=== PATIENT | male | born 1970 | race African-American/Black ===

== ENCOUNTER 2023-11-29 02:49 | Inpatient (IN) | payer OTHER, SELFPAY ==
[2023-11-28 23:13] VITALS: BP 165/92
[2023-11-28 23:23] VITALS: BP 155/92
[2023-11-28 23:24] VITALS: BMI 22.5
[2023-11-29] VITALS (25 sets, daily range): BP systolic 156–194; BP diastolic 86–117; BMI 21.8
--- NOTE | 2023-11-29 00:38 | ED.GENMED ---
History of Present Illness
General
Chief Complaint: Generalized Pain
Source: patient
Time Seen by Provider: 11/29/23 00:18
Travel History
Have you had any contact with someone who has COVID-19?: No
Do you have any symptoms of coronavirus? Fever > 100 degrees, chills, cough, shortness of breath, sore throat, loss of taste or smell, muscle aches, or headache?: No
History of Present Illness
History of Present Illness:
53-year-old male presents to the emergency room from [facility]. Patient is incarcerated and began having what he describes as his typical sickle cell crisis. He does not have pain medication prescribed for him there.
Patient is describing pain in his legs and ankle particularly his right ankle. Also pain in the chest. No shortness of breath. These are typical sites for his sickle cell pain. Patient typically receives care at the [facility]
[place].
Phy Exam
Physical Exam
Physical Exam:
General: Awake, Alert, Oriented X3. No acute distress.
Vitals: unremarkable
Head: Atraumatic
Eyes: Pupils equal, EOMI
Throat: Airway intact, no exudates
Neck: Trachea midline
Lungs: Clear and equal b/l
Heart: Regular rate, no murmurs
Abd: Soft, Nontender, No pulsatile mass
Neuro: Nonfocal
Skin: Warm, dry, no rash
Extremities: pulses equal b/l, no edema
Course
Orders/Labs/Results
Orders:
Orders
11/28/23 23:17
EKG [Electrocardiogram (*1)] Urgent
Reason for Study: Chest Pain
EKG- Treatment ONCE
11/29/23 00:37
0.9% Sodium Chloride 1000 ml [Nss] 1,000 ml IV BOLUS
HYDROmorphone [Dilaudid] 1 mg IV NOW STA
11/29/23 01:15
Complete Blood Count/With Diff Urgent
Comprehensive Metabolic Panel Urgent
Manual Differential Urgent
Reticulocyte Count Urgent
Troponin I Urgent
11/29/23 01:44
Blood Bank Products [* Blood Bank Products] Urgent
Blood Bank Products: *Packed RBC Leuko(PRBC's)
Quantity: 2
Transfuse Today: Yes
Reason: Anemia
11/29/23 01:45
Type+Screen Urgent
11/29/23 02:06
Admit/Transfer Patient As Directed
Co-Sign Provider:
Level of Care: Inpatient admission
Assign to:: Telemetry
Physician / Group: Gerald
Diagnosis: Sickle Cell Crisis
Reason for Telemetry: Chest Pain syndromes
Date to Stop Telemetry: 12/01/23
Time to Stop Telemetry: 11:00
Reason for Hospitalization: Sickle Cell Crisis
Expected length of stay greater than two midnights?: Yes
ELOS- Estimated Length of Stay in days: 3
I certify the patient meets the requirements for IP care: Yes
11/29/23 02:11
Code Status As Directed
Resuscitation Status: Full Code
12/01/23 11:00
DC Protocol for Telemetry ONCE
Abnormal Lab Results
11/29/23 11/29/23
01:15 01:45
WBC 11.4 H 10^3/uL
(4.8-10.8)
RBC 2.75 L 10^6/uL
(4.70-6.10)
Hgb 6.3 L* g/dL
(13.0-18.0)
Hct 18.8 L* %
(39.0-52.0)
MCV 68.4 L fL
(80.0-94.0)
MCH 22.9 L pg
(27.0-31.0)
RDW 20.5 H %
(11.5-14.5)
Abs Immat Gran (auto) 0.3 H 10^3/uL
(0-0.05)
Absolute Lymphs (auto) 3.5 H 10^3/uL
(1.2-3.4)
Absolute Monos (auto) 1.7 H 10^3/uL
(0.1-0.6)
Immature Gran % 2.9 H %
(0-0.5)
Monocytes % 15.1 H %
(1.7-9.3)
Band Neutrophils 4 H %
(0-3)
Retic Count 7.1 H %
(0.4-2.8)
Sodium 133 L mmol/L
(135-145)
Chloride 109 H mmol/L
(98-107)
Total Bilirubin 1.8 H mg/dl
(0.2-1.3)
AST 70 H U/L
(17-59)
Alkaline Phosphatase 199 H U/L
(38-126)
Troponin I 0.045 H* ng/ml
Crossmatch IS Only See Detail
11/29/23 01:15
11/29/23 01:15
Vital Signs
Initial and Last Documented VS:
Initial Vital Signs
Temp Pulse Resp BP Pulse Ox
98.6 F 87 20 165/92 97
11/28/23 23:13 11/28/23 23:13 11/28/23 23:13 11/28/23 23:13 11/28/23 23:13
Last Documented Vital Signs
Temp Pulse Resp BP Pulse Ox
98.6 F 90 17 155/92 98
11/28/23 23:13 11/29/23 03:00 11/29/23 03:00 11/28/23 23:23 11/29/23 03:00
MDM/Problems Addressed
Differential Diagnosis Includes:
Sickle cell pain crisis, aplastic anemia, acute chest syndrome, symptomatic anemia
MDM/Problems Addressed:
Patient presents with pain crisis which he says is typical for him. He is not hypoxic. He does not have a fever. There is not appear to be an infectious process ongoing. Labs show a hemoglobin of 6.3. Patient is unaware of his baseline
hemoglobin however he does state he has had blood transfusions in the past. Most recently he believes his transfusion was in 2019. Patient denies any GI bleeding or other sources of bleeding. Patient will require transfusion given how low his
hemoglobin is and the fact that he does feel short of breath and is having a pain crisis. 2 units of PRBCs ordered. Because patient was having some chest pain a troponin was ordered in triage. This is mildly elevated. My suspicion for coronary
artery disease causing this troponin elevation is very low rather than feel this is more related to his symptomatic anemia.
Chronic conditions affecting care: HTN
Acute Exacerbation and/or Progression of Chronic Illness: Other (Sickle cell disease)
*Pulse Oximetry
Patient hypoxic: no
*EKG
Interpreted by ED Provider?: Yes
Interpretation: abnormal
Heart Rate: 79
Rate: normal
Rhythm: sinus
QRS Pattern: left vent hypertrophy
Ischemia: no ischemia
*Cadmium Burner Interpretation
Rate: normal
Interpretation: normal
Rhythm: sinus
*Critical Care Note
Total Time (30-74mins, 75-104mins- exclusive of procedures): Not Applicable
Patient Management
Social determinants of health affecting care: Living situation and Poor outpatient follow-up
ED Attending Note
-
Portions of this chart may have been created with voice recognition software.� Occasional wrong word or��sound alike� substitutions may have occurred due to the inherent limitations of voice recognition software.
Discharge Plan
Departure
Patient Disposition: Admit
Date of Disposition: 11/29/23
Time of Disposition: 01:48
Admit to: Telemetry
Presentation/result/management discussed w/ accepting MD/DO: Hospitalist
Condition: Fair
Discharge Problem:
Sickle cell disease with crisis, Anemia
Interventions
Interventions:
*Risk Screen - Suicide Last Done: 11/28/23 23:13
*General Assessment Last Done: 11/28/23 23:13
*Neglect/Abuse Screening Last Done: 11/28/23 23:13
ED- Fall Risk Assessment Last Done: 11/28/23 23:25
*ED COVID-19 Vaccine History Last Done: 11/28/23 23:25
[2023-11-29 01:24] LABS: % Basophils 0.6 % (0-2); % Eosinophils 0.9 % (0-6); % Immature Granulocytes 2.9 % (0-0.5); % Lymphocytes 30.5 % (20.5-51.1); % Monocytes 15.1 % (1.7-9.3); Absolute Basophils 0.1 10^3/uL (0-0.2); Absolute Eosinophils 0.1 10^3/uL (0-0.7); Absolute Immature Granulocytes 0.3 10^3/uL (0-0.05); Absolute Lymphocytes 3.5 10^3/uL (1.2-3.4); Absolute Monocytes 1.7 10^3/uL (0.1-0.6); Absolute Neutrophils 5.7 10^3/uL (1.4-6.5); Mean Corp Hgb Conc. 33.5 g/dL (33.0-37.0); Mean Corpuscular Hgb 22.9 pg (27.0-31.0); Mean Corpuscular Volume 68.4 fL (80.0-94.0); Mean Platelet Volume 9.6 fL (7.4-10.4); Nucleated Red Blood Cells % 10.2 % (-); Platelet Count 203 10^3/uL (130-400); Red Blood Cell Count 2.75 10^6/uL (4.70-6.10); Red Cell Dist. Width 20.5 % (11.5-14.5); Reticulocyte Count 7.1 % (0.4-2.8); White Blood Cell Count 11.4 10^3/uL (4.8-10.8)
[2023-11-29 01:27] LABS: Hematocrit 18.8 % (39.0-52.0); Hemoglobin 6.3 g/dL (13.0-18.0)
[2023-11-29] MEDS: DILAUDID 1 MG IV (01:38)
[2023-11-29] MEDS: NSS 1000 IV ×4 (01:38→18:18)
[2023-11-29 01:40] LABS: ALT (SGPT) 23 U/L (0-50); AST (SGOT) 70 U/L (17-59); Albumin 3.5 g/dl (3.5-5.0); Alkaline Phosphatase 199 U/L (38-126); Blood Urea Nitrogen 12 mg/dl (9-20); Calcium 8.5 mg/dl (8.4-10.2); Carbon Dioxide 22 mmol/L (22-30); Chloride 109 mmol/L (98-107); Estimated Creatinine Clearance 103 ml/min; Glucose 98 mg/dl (70-99); Potassium 4.2 mmol/L (3.5-5.1); Sodium 133 mmol/L (135-145); Total Bilirubin 1.8 mg/dl (0.2-1.3); Total Protein 7.8 g/dl (6.3-8.2); eGFR > 60.00
[2023-11-29 01:46] LABS: Troponin I 0.045 ng/ml
[2023-11-29 02:12] LABS: Absolute Neutrophils -Man Diff 5.7 10^3/uL (1.4-6.5); Anisocytosis 2+; Band Neutrophils 4 % (0-3); Eosinophils 2 % (0-6); Lymphocytes 39 % (20-51); Metamyelocytes 1 % (-); Monocytes 8 % (2-9); Normal RBC Morphology No; Nucleated Red Blood Cells 50 (-); Platelets Checked Yes; Poikilocytosis 2+; Segmented Neutrophils 46 % (42-75); Target Cells 2+
[2023-11-29 02:13] LABS: Sickled Red Blood Cells 2+; Total Cells Counted 100
--- NOTE | 2023-11-29 02:14 | HPS.HSE ---
Family Physician
-
Family Physician: [facility]
Chief Complaint
-
Chest pain, R ankle pain
History of Present Illness
Patient is a 53y M with PMH significant for hypertension and sickle cell disease who presents to ED complaining of chest pain and R ankle pain. Patient states that he developed 'squeezing' chest discomfort this evening around 9PM. He had
associated SOB. No nausea, diaphoresis or other associated symptoms. Patient also began to experience pain in his R foot and ankle - which he notes is a typical site for his sickle cell pain. He denies any recent injury or trauma. He is
typically maintained on folic acid daily, but notes that he has not had this in about 2 months.
His last hospitalization due to sickle cell was in July or August 2023. He is typically seen at [facility] where he follows with Hematology.
Patient states that his last transfusion was in 2019.
He denies any recent fever, cough, abdominal pain or other recent symptoms.
Medical History
Past Medical History
Past Medical History: Reports Other
Additional Past Medical History:
Sickle Cell Disease
Hypertension
Past Surgical History: Reports None and Other
Social History
Tobacco: Smoker (Typical every day smoker. No cigarettes in about 2 months.)
Alcohol: None
Drug: Marijuana (Occasional)
Family History
Family History: Other (Father: Sickle cell trait Mother: Sickle cell trait Children: Sickle cell trait)
Allergies / Home Medications
Allergies reflects when Allergies were last updated in [facility].
Home Medications with original date entered in [facility]
Allergy/Medication List:
Patient states that he takes a 'blood pressure pill' - but he does not know the name / dose.
If medication reconciliation has not been performed, why?: Medication List N/A (Patient cannot recall.)
Review of Systems
-
History Source: Patient
A 12 point ROS was completed and negative except as noted: Yes
Constitutional: Denies Fever, Fatigue or Chills
EENT: Denies Sore Throat
Respiratory: Reports Trouble Breathing; Denies Cough or Hemoptysis
Cardiac: Reports Chest Pain; Denies Diaphoresis or Palpitations
Abdomen/GI: Denies Abdominal Pain, Nausea, Vomiting or Diarrhea
: Denies Dysuria, Frequency or Flank Pain
Musculoskeletal: Reports Joint Pain; Denies Edema
Neurological: Denies Dizzy or Headache
Psych: Denies Depression or Anxiety
Physical Exam
Vital Signs
Vital Signs
Temp Pulse Resp BP Pulse Ox
98.6 F 91 16 155/92 98
11/28/23 23:13 11/29/23 01:30 11/29/23 01:30 11/28/23 23:23 11/28/23 23:30
Physical Exam
General: Other (53y M in no acute distress at present.)
HEENT: Moist mucous membranes and PERRLA
Respiratory: Clear; No Wheezes, Rales or Rhonchi
Cardiac: S1/S2 and Regular Rhythm; No Murmur
GI: Soft, Non Distended, Normal Bowel Sounds and Other (Mild splenomegaly on exam. Voluntary guarding. )
Musculoskeletal: No Clubbing, No Cyanosis, No Edema and Other (Tenderness of the R foot / ankle area. No erythema, increased warmth or induration. No evident edema / joint effusion / etc.)
Neuro: AO x 3
Laboratory Results
-
11/29/23 01:15
11/29/23 01:15
Laboratory Results
Total Bilirubin 1.8 mg/dl (0.2-1.3) H 11/29/23 01:15
AST 70 U/L (17-59) H 11/29/23 01:15
ALT 23 U/L (0-50) 11/29/23 01:15
Alkaline Phosphatase 199 U/L (38-126) H 11/29/23 01:15
Troponin I 0.045 ng/ml H* 11/29/23 01:15
Impression/Plan
-
A/P: Patient is a 53y M with PMH significant for sickle cell disease and HTN who presents to ED complaining of chest pain and R ankle pain.
Sickle Cell Disease with Vaso-occlusive Pain
Non-HI Troponin elevation secondary to the above
Microcytic Anemia - likely acute on chronic
- Admit for further evaluation and treatment.
- Pain control, IVFs, incentive spirometry, supplemental oxygen.
- PRBCs ordered in the ED for Hgb = 6.3.
- Follow for improvement in symptoms with transfusion and supportive care.
- Restart folate supplementation.
- Follow troponin to peak.
Benign Hypertension
- Follow for improvement in BP with adequate pain control.
- Formal med reconciliation in the AM. No med list sent with patient from group home.
DVT Prophylaxis: Lovenox
Code Status: Full
[2023-11-29 02:48] LABS: Hypochromasia 1+; Microcytosis 2+; Polychromasia 1+
[2023-11-29 02:49] LABS: Howell Jolly Bodies 1+; Ovalocytes 1+; Schistocytes Occasional; Tear Drop Red Blood Cells Occasional
[2023-11-29 04:33] LABS: Troponin I 0.057 ng/ml
[2023-11-29] MEDS: DILAUDID 0.5 MG IV ×5 (04:43→23:36)
[2023-11-29] MEDS: PROTONIX IV 40 MG IV (08:34)
[2023-11-29] MEDS: FOLVITE 1 MG PO (08:34)
[2023-11-29] MEDS: NSS (PRESERVATIVE FREE) 10 ML IV (08:34)
[2023-11-29] MEDS: TYLENOL 1000 MG PO ×2 (08:35→16:59)
--- NOTE | 2023-11-29 08:50 | W.PN.HOSP.TC ---
Today's Communication/Plan
-
see A/P
Assessment / Plan
Assessment / Plan
53y M with PMH significant for hypertension and sickle cell disease who presented to ED complaining of chest pain and R ankle pain.�Patient states that he developed 'squeezing' chest discomfort in the evening around 9PM.� He had associated SOB.�
No nausea, diaphoresis or other associated symptoms.� Patient also began to experience pain in his R foot and ankle - which he notes is a typical site for his sickle cell pain.� He denies any recent injury or trauma.� He is typically maintained on
folic acid daily, but notes that he has not had this in about 2 months.
His last hospitalization due to sickle cell was in July or August 2023.�He is typically seen at [place] where he follows with Hematology.
Patient states that his last transfusion was in 2019.
He denies any recent fever, cough, abdominal pain or other recent symptoms.
A/P:�
# Sickle Cell Disease with Vaso-occlusive Pain
# Non-CA Troponin elevation secondary to the above
# Microcytic Anemia - likely acute on chronic
Hgb 6.3 on admission, transfuse 2 units PRBC, follow Hgb
retic count high consistent with active sickle cell disease
Check CXR
Follow troponin to peak.
Check d dimer
Chest pain has much improved
Cont pain control, IVFs, incentive spirometry
off supplemental oxygen.
Restart folate supplementation.
# Benign Hypertension
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
IV hydralazine PRN for SBP > 160
DVT Prophylaxis:� Lovenox SQ
Code Status:� Full
DW RN
Anticipated Discharge: 24 - 48 hours
Subjective/Interval History
-
Date of Service: November 29, 2023
Objective Data
-
Labs:
Laboratory Results
11/29/23 11/29/23
01:15 06:00
WBC 11.4 H Pending
Hgb 6.3 L* Pending
Hct 18.8 L* Pending
Plt Count 203 Pending
PT Pending
INR Pending
Sodium 133 L Pending
Potassium 4.2 Pending
Chloride 109 H Pending
Carbon Dioxide 22 Pending
BUN 12 Pending
Creatinine 0.8 Pending
Glucose 98 Pending
Calcium 8.5 Pending
Total Bilirubin 1.8 H
AST 70 H
ALT 23
Alkaline Phosphatase 199 H
Vital Signs:
Vital Signs
Temp Pulse Resp BP Pulse Ox
36.6 C 83 18 170/86 97
11/29/23 07:00 11/29/23 06:34 11/29/23 06:34 11/29/23 06:34 11/29/23 06:34
I&O
11/28/23 11/29/23 11/30/23
06:59 06:59 06:59
Intake Total 250 / 250
Output Total 450 / 450
Balance -200 / -200
Review of Systems
-
Musculoskeletal: Reports Joint Pain (R ankle joint pain)
Physical Exam
-
General: Well Developed, Well Nourished, No Apparent Distress, Comfortable and Conversant; Negative Respiratory Distress
HEENT: Normocephalic, Atraumatic, Nose Appears Normal and Ears Appear Normal; Negative Oxygen
Respiratory: Clear to Auscultation and Non Labored Respirations; Negative Accessory Resp Muscle Use
Cardiac: Regular Rhythm and S1/S2
GI: Soft, Nontender, Nondistended and Normal Bowel Sounds
Skin: Warm and Dry
Neuro: Awake, Alert and Oriented
Psych: Calm and Intact Judgement/Insight
Data Reviewed
-
Labs: Labs Reviewed by me
[2023-11-29] MEDS: COZAAR 25 MG PO (09:04)
[2023-11-29] MEDS: APRESOLINE 5 MG IV (12:58)
--- NOTE | 2023-11-29 14:19 | CM ---
Patient here with guards from [facility]. CM called to [facility] and was told by Socrates and a diving supervisor that they were not privy to patient status. CM will update [facility] as per care needs. CM will continue to follow for discharge planning needs.
Plan; return to [facility] when medically appropriate.
[2023-11-29 14:45] LABS: Hematocrit 21.2 % (39.0-52.0); Hemoglobin 7.1 g/dL (13.0-18.0); Mean Corp Hgb Conc. 33.5 g/dL (33.0-37.0); Mean Corpuscular Hgb 24.4 pg (27.0-31.0); Mean Corpuscular Volume 72.9 fL (80.0-94.0); Red Blood Cell Count 2.91 10^6/uL (4.70-6.10); Red Cell Dist. Width 21.2 % (11.5-14.5); White Blood Cell Count 9.3 10^3/uL (4.8-10.8)
[2023-11-29 14:52] LABS: INR 1.29; PT 16.1 Sec (11.4-14.6)
[2023-11-29 15:02] LABS: Blood Urea Nitrogen 9 mg/dl (9-20); Calcium 7.7 mg/dl (8.4-10.2); Carbon Dioxide 20 mmol/L (22-30); Chloride 112 mmol/L (98-107); D-Dimer 4.38 ug/mlFEU (0.00-0.50); Estimated Creatinine Clearance 117 ml/min; Glucose 93 mg/dl (70-99); Magnesium 1.5 mg/dl (1.6-2.3); Potassium 3.7 mmol/L (3.5-5.1); Sodium 139 mmol/L (135-145); eGFR > 60.00
[2023-11-29 15:03] LABS: Mean Platelet Volume 9.3 fL (7.4-10.4); Platelet Count 161 10^3/uL (130-400)
[2023-11-29 15:10] LABS: Troponin I 0.037 ng/ml
[2023-11-29 15:11] LABS: Troponin I 0.038 ng/ml
[2023-11-29] MEDS: TYLENOL PO ×2 (16:54→23:24)
[2023-11-29] MEDS: APRESOLINE 10 MG IV ×2 (16:59→23:37)
[2023-11-29] MEDS: LOVENOX SC ×2 (18:18→18:25)
[2023-11-30] VITALS (13 sets, daily range): BP systolic 143–182; BP diastolic 81–112; BMI 21.5
[2023-11-30] MEDS: DILAUDID 0.5 MG IV ×3 (02:43→08:46)
[2023-11-30] MEDS: NSS 1000 IV ×3 (02:44→19:06)
[2023-11-30 08:37] LABS: Hematocrit 23.6 % (39.0-52.0); Hemoglobin 7.9 g/dL (13.0-18.0); Mean Corp Hgb Conc. 33.5 g/dL (33.0-37.0); Mean Corpuscular Hgb 24.2 pg (27.0-31.0); Mean Corpuscular Volume 72.4 fL (80.0-94.0); Mean Platelet Volume 9.8 fL (7.4-10.4); Platelet Count 171 10^3/uL (130-400); Red Blood Cell Count 3.26 10^6/uL (4.70-6.10); Red Cell Dist. Width 21.2 % (11.5-14.5)
[2023-11-30] MEDS: COZAAR 25 MG PO ×2 (08:46→19:29)
[2023-11-30] MEDS: TYLENOL PO ×2 (08:46→11:45)
[2023-11-30] MEDS: NSS (PRESERVATIVE FREE) 10 ML IV (08:46)
[2023-11-30] MEDS: FOLVITE 1 MG PO (08:46)
[2023-11-30] MEDS: PROTONIX IV 40 MG IV (08:46)
--- NOTE | 2023-11-30 09:21 | CM ---
Patient from [facility]
Plan: [facility] when stable.
Report# [phone]
[2023-11-30 09:32] LABS: Blood Urea Nitrogen 12 mg/dl (9-20); Calcium 8.6 mg/dl (8.4-10.2); Carbon Dioxide 24 mmol/L (22-30); Chloride 106 mmol/L (98-107); Estimated Creatinine Clearance 112 ml/min; Glucose 81 mg/dl (70-99); Magnesium 1.7 mg/dl (1.6-2.3); Potassium 4.4 mmol/L (3.5-5.1); Sodium 135 mmol/L (135-145); eGFR > 60.00
[2023-11-30] MEDS: APRESOLINE 10 MG IV ×3 (11:46→23:55)
[2023-11-30] MEDS: DILAUDID 1 MG IV ×4 (11:49→23:34)
--- NOTE | 2023-11-30 12:08 | W.PN.HOSP.TC ---
Today's Communication/Plan
-
navarro culture
adjust pain meds
renew IVF
transfuse 2 more pRBC
Assessment / Plan
Assessment / Plan
53y M with PMH significant for hypertension and sickle cell disease who presented to ED complaining of chest pain and R ankle pain.�Patient states that he developed 'squeezing' chest discomfort in the evening around 9PM.� He had associated SOB.�
No nausea, diaphoresis or other associated symptoms.� Patient also began to experience pain in his R foot and ankle - which he notes is a typical site for his sickle cell pain.� He denies any recent injury or trauma.� He is typically maintained on
folic acid daily, but notes that he has not had this in about 2 months.
His last hospitalization due to sickle cell was in July or August 2023.�He is typically seen at [place] where he follows with Hematology.
Patient states that his last transfusion was in 2019.
He denies any recent fever, cough, abdominal pain or other recent symptoms.
Sickle Cell Disease with crisis and Vaso-occlusive Pain/acute nonischemic myocardial injury due to crisis --HGB 6.3 on admission, increased to 7.9, will give 2 more units--cont pain management--troponin peak at 0.057--retic count high consistent
with active sickle cell disease --cont folic acid
fever--due to crisis?--would navarro culture--CXR without infection--tylenol for fever
Microcytic Anemia - likely acute on chronic--Hgb 6.3 on admission, transfuse 2 units PRBC, will give 2 more
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
DVT Prophylaxis:� Lovenox SQ
Code Status:� Full
Anticipated Discharge: > 48 hours
Subjective/Interval History
-
Date of Service: November 30, 2023
pt c/o leg pains--no chest pain
Objective Data
-
Labs:
Laboratory Results
11/30/23
08:17
WBC 10.0
Hgb 7.9 L
Hct 23.6 L
Plt Count 171
Sodium 135
Potassium 4.4
Chloride 106
Carbon Dioxide 24
BUN 12
Creatinine 0.7
Glucose 81
Calcium 8.6
Vital Signs:
max temp for 24 hours
11/30/23
03:30
Temp 98.8 F
Vital Signs
Temp Pulse Resp BP Pulse Ox
100.6 F H 98 18 182/106 100
11/30/23 11:29 11/30/23 11:46 11/30/23 11:29 11/30/23 11:46 11/30/23 11:29
I&O
11/29/23 11/30/23 12/01/23
06:59 06:59 06:59
Intake Total 250 / 250 1210 / 1210
Output Total 450 / 450 400 / 400
Balance -200 / -200 810 / 810
Review of Systems
-
All other systems: Reviewed and negative
Physical Exam
-
General: Well Developed, Well Nourished and No Apparent Distress
HEENT: Normocephalic and Atraumatic
Respiratory: Clear to Auscultation; Negative Wheezes or Rhonchi
Cardiac: Regular Rhythm and S1/S2; Negative Murmur
GI: Soft, Nontender, Nondistended and Normal Bowel Sounds
Musculoskeletal: No Clubbing, No Cyanosis, No Edema and Other (leg pain to touch)
Skin: Warm (feels hot)
Neuro: Awake
Psych: Calm
[2023-11-30] MEDS: TYLENOL 650 MG PO (14:08)
[2023-11-30] MEDS: LOVENOX 40 MG SC (18:39)
[2023-11-30 18:46] LABS: Urine Albumin 1+ (Neg - Trace); Urine Bilirubin Negative (Negative); Urine Character Clear (Clear); Urine Color Yellow; Urine Glucose Negative (Negative); Urine Ketone Negative (Negative); Urine Leukocyte Negative (Negative); Urine Nitrite Negative (Negative); Urine Occult Blood 1+ (Negative); Urine Urobilinogen Negative (Neg - 1+)
[2023-11-30 18:52] LABS: Urine Red Blood Cell 0-2 /HPF (0-2); Urine Squamous Cell 0-2 /LPF (Few); Urine White Cell 0-2 /HPF (0-5)
[2023-11-30 18:53] LABS: Urine Bacteria Few (Negative)
[2023-11-30] MEDS: COLACE 100 MG PO (19:29)
[2023-12-01] VITALS (9 sets, daily range): BP systolic 166–191; BP diastolic 93–112; BMI 21.8
[2023-12-01] MEDS: DILAUDID 1 MG IV ×7 (02:34→22:34)
[2023-12-01] MEDS: APRESOLINE 10 MG IV ×3 (04:23→21:26)
[2023-12-01] MEDS: NSS 1000 IV ×2 (05:37→13:40)
[2023-12-01] MEDS: PROTONIX IV 40 MG IV (07:46)
[2023-12-01] MEDS: NSS (PRESERVATIVE FREE) 10 ML IV (07:46)
[2023-12-01] MEDS: COZAAR 25 MG PO ×2 (07:46→19:33)
[2023-12-01] MEDS: FOLVITE 1 MG PO (07:46)
[2023-12-01] MEDS: MIRALAX 17 GRAMS PO (07:50)
[2023-12-01] MEDS: COLACE 100 MG PO ×2 (07:50→19:34)
[2023-12-01 08:14] LABS: % Basophils 0.4 % (0-2); % Eosinophils 0.7 % (0-6); % Immature Granulocytes 0.8 % (0-0.5); % Lymphocytes 22.3 % (20.5-51.1); % Monocytes 12.6 % (1.7-9.3); % Neutrophils 63.2 % (42.2-75.2); Absolute Eosinophils 0.1 10^3/uL (0-0.7); Absolute Immature Granulocytes 0.1 10^3/uL (0-0.05); Absolute Monocytes 1.2 10^3/uL (0.1-0.6); Absolute Neutrophils 5.8 10^3/uL (1.4-6.5); Hematocrit 29.9 % (39.0-52.0); Mean Corp Hgb Conc. 33.8 g/dL (33.0-37.0); Mean Corpuscular Hgb 25.3 pg (27.0-31.0); Mean Corpuscular Volume 74.9 fL (80.0-94.0); Mean Platelet Volume 9.8 fL (7.4-10.4); Nucleated Red Blood Cells % 6.6 % (-); Platelet Count 169 10^3/uL (130-400); Red Blood Cell Count 3.99 10^6/uL (4.70-6.10); Red Cell Dist. Width 20.6 % (11.5-14.5); White Blood Cell Count 9.1 10^3/uL (4.8-10.8)
[2023-12-01 08:35] LABS: ALT (SGPT) 20 U/L (0-50); AST (SGOT) 56 U/L (17-59); Albumin 3.5 g/dl (3.5-5.0); Alkaline Phosphatase 198 U/L (38-126); Blood Urea Nitrogen 13 mg/dl (9-20); Calcium 8.6 mg/dl (8.4-10.2); Carbon Dioxide 21 mmol/L (22-30); Chloride 109 mmol/L (98-107); Estimated Creatinine Clearance 99 ml/min; Glucose 91 mg/dl (70-99); Hemoglobin 10.1 g/dL (13.0-18.0); Magnesium 1.7 mg/dl (1.6-2.3); Potassium 4.2 mmol/L (3.5-5.1); Total Bilirubin 2.6 mg/dl (0.2-1.3); Total Protein 7.8 g/dl (6.3-8.2); Uric Acid 6.5 mg/dl (3.5-8.5); eGFR > 60.00
[2023-12-01 08:42] LABS: Sodium 135 mmol/L (135-145)
--- NOTE | 2023-12-01 12:07 | W.PN.HOSP.TC ---
Today's Communication/Plan
-
see A/P
Assessment / Plan
Assessment / Plan
53y M with PMH significant for hypertension and sickle cell disease who presented to ED complaining of chest pain and R ankle pain.�Patient states that he developed 'squeezing' chest discomfort in the evening around 9PM.� He had associated SOB.�
No nausea, diaphoresis or other associated symptoms.� Patient also began to experience pain in his R foot and ankle - which he notes is a typical site for his sickle cell pain.� He denies any recent injury or trauma.� He is typically maintained on
folic acid daily, but notes that he has not had this in about 2 months.
His last hospitalization due to sickle cell was in July or August 2023.�He is typically seen at [place] where he follows with Hematology.
Patient states that his last transfusion was in 2019.
He denies any recent fever, cough, abdominal pain or other recent symptoms.
Sickle Cell Disease with crisis and Vaso-occlusive Pain/acute nonischemic myocardial injury due to crisis -- HGB 6.3 on admission, transfused 4 units PBRC, Hgb improved to 10.1 today--cont pain management--troponin peak at 0.057--retic count on
admission high consistent with active sickle cell disease, follow retic level--cont folic acid
fever--due to crisis?--follow blood culture, CXR with Cardiomegaly without associated pulmonary edema--tylenol for fever
Microcytic Anemia - likely acute on chronic
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
DVT Prophylaxis:� Lovenox SQ
Code Status:� Full
DW RN
Anticipated Discharge: Within 24 hours
Subjective/Interval History
-
Date of Service: December 01, 2023
Objective Data
-
Labs:
Laboratory Results
12/01/23
07:44
WBC 9.1
Hgb 10.1 L D
Hct 29.9 L
Plt Count 169
Sodium 135
Potassium 4.2
Chloride 109 H
Carbon Dioxide 21 L
BUN 13
Creatinine 0.8
Glucose 91
Calcium 8.6
Total Bilirubin 2.6 H
AST 56
ALT 20
Alkaline Phosphatase 198 H
Vital Signs:
Vital Signs
Temp Pulse Resp BP Pulse Ox
37.1 C 103 16 175/94 91
12/01/23 11:20 12/01/23 11:20 12/01/23 11:20 12/01/23 11:20 12/01/23 11:20
I&O
11/30/23 12/01/23 12/02/23
06:59 06:59 06:59
Intake Total 1210 / 1210 2215 / 2215
Output Total 400 / 400 950 / 950
Balance 810 / 810 1265 / 1265
Review of Systems
-
All other systems: Reviewed and negative
Physical Exam
-
General: Well Developed, Well Nourished, No Apparent Distress and Comfortable
HEENT: Normocephalic and Atraumatic
Respiratory: Clear to Auscultation and Non Labored Respirations; Negative Wheezes, Rhonchi or Accessory Resp Muscle Use
Cardiac: Regular Rhythm and S1/S2; Negative Murmur
GI: Soft, Nontender, Nondistended and Normal Bowel Sounds
Musculoskeletal: No Clubbing, No Cyanosis and No Edema
Neuro: Awake
Psych: Calm and Intact Judgement/Insight
Data Reviewed
-
Labs: Labs Reviewed by me
--- NOTE | 2023-12-01 15:34 | CM ---
Patient from [facility]. CM will call to [facility] with update.
Plan: [facility] when stable.
Report# [phone]
[2023-12-01] MEDS: LOVENOX 40 MG SC (17:35)
[2023-12-02] MEDS: APRESOLINE 10 MG IV ×2 (01:34→05:35)
[2023-12-02] MEDS: DILAUDID 1 MG IV ×4 (01:35→10:45)
[2023-12-02 03:30] VITALS: BP 166/109
[2023-12-02 06:00] VITALS: BMI 21.4
[2023-12-02 06:41] LABS: Hematocrit 30.4 % (39.0-52.0); Hemoglobin 10.5 g/dL (13.0-18.0); Mean Corp Hgb Conc. 34.5 g/dL (33.0-37.0); Mean Corpuscular Hgb 25.5 pg (27.0-31.0); Mean Corpuscular Volume 73.8 fL (80.0-94.0); Mean Platelet Volume 9.5 fL (7.4-10.4); Platelet Count 163 10^3/uL (130-400); Red Blood Cell Count 4.12 10^6/uL (4.70-6.10); Red Cell Dist. Width 20.9 % (11.5-14.5); Reticulocyte Count 5.1 % (0.4-2.8); White Blood Cell Count 8.5 10^3/uL (4.8-10.8)
[2023-12-02 07:05] LABS: Blood Urea Nitrogen 14 mg/dl (9-20); Carbon Dioxide 23 mmol/L (22-30); Chloride 105 mmol/L (98-107); Estimated Creatinine Clearance 112 ml/min; Glucose 121 mg/dl (70-99); Magnesium 1.7 mg/dl (1.6-2.3); Potassium 4.3 mmol/L (3.5-5.1); Sodium 136 mmol/L (135-145); eGFR > 60.00
[2023-12-02 08:17] VITALS: BP 174/98
[2023-12-02] MEDS: FOLVITE 1 MG PO (09:18)
[2023-12-02] MEDS: MIRALAX 17 GRAMS PO (09:19)
[2023-12-02] MEDS: COZAAR 25 MG PO ×2 (09:19→20:32)
[2023-12-02] MEDS: COLACE 100 MG PO ×2 (09:20→20:32)
[2023-12-02] MEDS: PROTONIX IV 40 MG IV (09:20)
[2023-12-02] MEDS: NSS (PRESERVATIVE FREE) 10 ML IV (09:20)
[2023-12-02 10:53] VITALS: BP 150/90
--- NOTE | 2023-12-02 13:03 | W.PN.HOSP.TC ---
Today's Communication/Plan
-
anticipate d/c after US today
Assessment / Plan
Assessment / Plan
pt is a 53 year old male
Sickle Cell Disease with crisis and Vaso-occlusive Pain/acute nonischemic myocardial injury due to crisis -- HGB 6.3 on admission, transfused 4 units PBRC, Hgb improved to 10.5 today--cont pain management--troponin peak at 0.057--retic count on
admission high consistent with active sickle cell disease, follow retic level--cont folic acid--check US of legs (given ongoing pain)
fever--due to crisis?--follow blood culture, CXR with Cardiomegaly without associated pulmonary edema--tylenol for fever
Microcytic Anemia - likely acute on chronic
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
DVT Prophylaxis:� Lovenox SQ
Code Status:� Full
Anticipated Discharge: Today
Subjective/Interval History
-
Date of Service: December 02, 2023
pt continues to c/o leg pain
Objective Data
-
Labs:
Laboratory Results
12/02/23
06:20
WBC 8.5
Hgb 10.5 L
Hct 30.4 L
Plt Count 163
Sodium 136
Potassium 4.3
Chloride 105
Carbon Dioxide 23
BUN 14
Creatinine 0.7
Glucose 121 H
Calcium 9.0
Vital Signs:
max temp for 24 hours
12/01/23
23:35
Temp 98.9 F
Vital Signs
Temp Pulse Resp BP Pulse Ox
98.3 F 90 20 150/90 96
12/02/23 11:50 12/02/23 11:50 12/02/23 11:50 12/02/23 10:53 03/16/24 11:50
I&O
12/01/23 12/02/23 12/03/23
06:59 06:59 06:59
Intake Total 2215 / 2215 2940 / 2940
Output Total 950 / 950 2790 / 2790
Balance 1265 / 1265 150 / 150
Review of Systems
-
All other systems: Reviewed and negative
Musculoskeletal: Reports Other (leg pain)
Physical Exam
-
General: Well Developed, Well Nourished and No Apparent Distress
HEENT: Normocephalic and Atraumatic
Respiratory: Clear to Auscultation; Negative Wheezes or Rhonchi
Cardiac: Regular Rhythm and S1/S2; Negative Murmur
GI: Soft, Nontender, Nondistended and Normal Bowel Sounds
Musculoskeletal: No Clubbing, No Cyanosis and No Edema
Neuro: Awake
Psych: Calm
[2023-12-02 15:00] VITALS: BP 171/107
[2023-12-02] MEDS: MOTRIN 600 MG PO ×2 (16:12→20:32)
[2023-12-02 19:35] VITALS: BP 170/97
[2023-12-02] MEDS: LOVENOX 40 MG SC (20:31)
[2023-12-02 23:35] VITALS: BP 159/94
[2023-12-03] MEDS: MOTRIN 600 MG PO ×3 (03:40→14:30)
[2023-12-03 06:00] VITALS: BMI 20.9
[2023-12-03 07:14] LABS: Hematocrit 29.8 % (39.0-52.0); Mean Corp Hgb Conc. 33.6 g/dL (33.0-37.0); Mean Corpuscular Hgb 25.3 pg (27.0-31.0); Mean Corpuscular Volume 75.3 fL (80.0-94.0); Platelet Count 144 10^3/uL (130-400); Red Blood Cell Count 3.96 10^6/uL (4.70-6.10); Red Cell Dist. Width 21.4 % (11.5-14.5); White Blood Cell Count 6.4 10^3/uL (4.8-10.8)
[2023-12-03 07:30] LABS: Blood Urea Nitrogen 19 mg/dl (9-20); Calcium 8.5 mg/dl (8.4-10.2); Carbon Dioxide 24 mmol/L (22-30); Chloride 112 mmol/L (98-107); Estimated Creatinine Clearance 95 ml/min; Glucose 77 mg/dl (70-99); Sodium 139 mmol/L (135-145); eGFR > 60.00
[2023-12-03 07:38] VITALS: BP 170/105
[2023-12-03] MEDS: MIRALAX PO ×2 (09:37→10:02)
[2023-12-03] MEDS: PROTONIX IV 40 MG IV (09:37)
[2023-12-03] MEDS: FOLVITE 1 MG PO (09:38)
[2023-12-03] MEDS: COLACE 100 MG PO (09:38)
[2023-12-03] MEDS: NSS (PRESERVATIVE FREE) 10 ML IV (09:38)
[2023-12-03] MEDS: COZAAR 25 MG PO (09:38)
--- NOTE | 2023-12-03 13:06 | W.PN.HOSP.TC ---
Today's Communication/Plan
-
d/c
Assessment / Plan
Assessment / Plan
pt is a 53 year old male
Sickle Cell Disease with crisis and Vaso-occlusive Pain/acute nonischemic myocardial injury due to crisis -- HGB 6.3 on admission, transfused 4 units PBRC, Hgb improved to 10.5 today--cont pain management--troponin peak at 0.057--retic count on
admission high consistent with active sickle cell disease, follow retic level--cont folic acid-- US of legs negative
fever--due to crisis?--follow blood culture, CXR with Cardiomegaly without associated pulmonary edema--tylenol for fever
Microcytic Anemia - likely acute on chronic
Essential Hypertension--Cont LUMP ROOM SUPERVISOR Cozaar, increased to BID--IV hydralazine PRN for SBP > 160
DVT Prophylaxis:� Lovenox SQ
Code Status:� Full
Anticipated Discharge: Today
Subjective/Interval History
-
Date of Service: December 03, 2023
pt ready for d/c back to the group home
Objective Data
-
Labs:
Laboratory Results
12/03/23
06:18
WBC 6.4
Hgb 10.0 L
Hct 29.8 L
Plt Count 144
Sodium 139
Potassium 4.0
Chloride 112 H
Carbon Dioxide 24
BUN 19
Creatinine 0.8
Glucose 77
Calcium 8.5
Vital Signs:
max temp for 24 hours
12/02/23
15:00
Temp 98.6 F
Vital Signs
Temp Pulse Resp BP Pulse Ox
98.1 F 92 20 170/105 96
12/03/23 07:38 12/03/23 07:38 12/03/23 07:38 12/03/23 07:38 12/03/23 07:38
I&O
12/02/23 12/03/23 12/04/23
06:59 06:59 06:59
Intake Total 2940 / 2940 1140 / 1140
Output Total 2790 / 2790 1650 / 1650
Balance 150 / 150 -510 / -510
Review of Systems
-
All other systems: Reviewed and negative
Physical Exam
-
General: Well Developed, Well Nourished and No Apparent Distress
HEENT: Normocephalic and Atraumatic
Respiratory: Clear to Auscultation; Negative Wheezes or Rhonchi
Cardiac: Regular Rhythm and S1/S2; Negative Murmur
GI: Soft, Nontender, Nondistended and Normal Bowel Sounds
Musculoskeletal: No Clubbing, No Cyanosis and No Edema
Skin: Warm
Neuro: Awake
--- NOTE | 2023-12-03 13:25 | CM ---
Reviewed the chart notes. Patient is being discharged back to [facility] today.
Report# [phone]
--- NOTE | 2023-12-03 13:42 | W.DCSUMMARY ---
Discharge Summary
Discharge Data
Date of Admission: 11/29/23
Date of Discharge: 12/03/23
-
Pending Results: No
Hospital Course
Primary care physician : [facility]
Principal Discharge diagnosis : Sickle cell crisis with vaso-occlusive pain and acute nonischemic myocardial injury due to crisis
Chronic Discharge diagnosis : Chronic microcytic anemia, essential hypertension
Hospital Course : Patient was a 53-year-old male who presented from the half-way with complaints of chest pain and right ankle pain. Patient stated that he developed a 'squeezing' in his chest on the evening of admission. He also had associated
shortness of breath. He then began to experience pain in his right foot and ankle. This is a typical site for pain from his sickle cell. His last hospitalization for sickle cell flare was in 2022. He does follow with hematology at [facility]
[place]. He also stated that his last transfusion was in 2018. Patient was admitted.
Problem #1: Sickle cell crisis with vaso-occlusive pain and acute nonischemic myocardial injury due to crisis. Patient was admitted. His hemoglobin was 6.3 on admission and in total the patient received 4 units of packed red blood cells.
Hemoglobin improved to 10.5. Troponins were trended and they peaked at 0.057. Reticulocyte count on admission was also elevated all consistent with active sickle cell disease. He was given IV fluids, pain medications as well. Ultrasound of the
leg was checked and was negative for DVT; but again, the patient states that this is a typical location for his sickle pain. He did not require any oxygen during his hospitalization. Patient is stable for discharge.
Problem for 2: All other medical issues. These include chronic microcytic anemia and essential hypertension. These medical issues were stable during his hospitalization. Medications were continued as able. In regards to his essential
hypertension, blood pressure was elevated likely due to pain. His losartan was increased to 25 mg twice daily. He was also given as needed IV hydralazine during his hospitalization.
Patient is stable for discharge back to the half-way at this time. If there are any questions regarding this dictation or his hospital stay, please not hesitate to call. Our office number is [phone].
Discharge Plan
-
Patient Disposition: [facility]
Discharge Diagnosis/Procedures: Sickle cell crisis with acute anemia and vaso-occlusive pain along with acute nonischemic myocardial injury, essential hypertension
Condition: Good
Diet: As tolerated
Activity: As tolerated
Driving Restrictions: As prior to admission
Bathing Restrictions: None
Referrals:
[facility] [Family Provider] - in less than 1 week
Prescriptions:
New
acetaminophen 325 mg Tablet
650 mg PO Q4HPRN PRN (Reason: pain/temp) Qty: 0 0RF
polyethylene glycol 3350 [HealthyLax] 17 gram Powder In Packet
17 g PO DAILY Qty: 0 0RF
docusate sodium 100 mg Capsule
100 mg PO BID Qty: 0 0RF
folic acid 1 mg Tablet
1 mg PO DAILY Qty: 0 0RF
ibuprofen 600 mg Tablet
600 mg PO Q4HPRN PRN (Reason: leg pain) Qty: 20 0RF
losartan 25 mg tablet
25 mg PO BID Qty: 30 0RF
Discontinued
losartan [Cozaar] 25 mg Tablet
25 mg PO DAILY@1999
Patient Comments:
11/29/2023, per [facility], pt.'s one month supply of this med. yesterday (11/28/2023) but will be renewed.
Discharge Orders:
Discharge Patient (As Directed); Ordered 12/03/23
Ordered By: Jannie Hopknis
[2023-12-03] MEDS: FLUZONE QUAD 2023-2024 SYRINGE 0.5 ML IM (14:13)
[2023-12-03 15:35] VITALS: BP 157/96
== END 2023-12-03 17:35 | DRG 812 ==
LOC: 4 WEST ACU 02:49
PROVIDERS: Internal Medicine; ADMITTING PHYSICIAN Hospitalist; ATTENDING PHYSICIAN Internal Medicine; EMERGENCY PHYSICIAN Emergency Medicine
PROC: 30233N1 Transfusion of Nonautologous Red Blood Cells into Peripheral Vein, Percutaneous Approach (ICD-10-PCS; 2023-11-29)
PROC: 3E02340 Introduction of Influenza Vaccine into Muscle, Percutaneous Approach (ICD-10-PCS; 2023-12-03)
DX: D57.00 Hb-SS disease with crisis, unspecified (principal); I5A Non-ischemic myocardial injury (non-traumatic); I10 Essential (primary) hypertension; M79.671 Pain in right foot; F17.200 Nicotine dependence, unspecified, uncomplicated; D50.9 Iron deficiency anemia, unspecified; Z83.2 Family history of diseases of the blood and blood-forming organs and certain disorders involving the immune mechanism; Z23 Encounter for immunization
CPT/HCPCS: 71046; 80048; 80053; 81003; 81015; 83735; 84484; 84550; 85025; 85027; 85045; 85379; 85610; 86140; 86850; 86900; 86901; 86920; 87040; 87070; 90686; 93005; 93970; 96374; 99285; 99406; G0008; P9016; P9058

== ENCOUNTER 2024-01-19 14:48 | Emergency (ER) | payer OTHER, SELFPAY ==
[2024-01-19] VITALS (10 sets, daily range): BP systolic 152–172; BP diastolic 94–112; BMI 24.2
[2024-01-19 15:20] LABS: % Eosinophils 2.4 % (0-6); % Immature Granulocytes 0.5 % (0-0.5); % Lymphocytes 39.7 % (20.5-51.1); % Monocytes 12.4 % (1.7-9.3); Absolute Basophils 0.1 10^3/uL (0-0.2); Absolute Eosinophils 0.2 10^3/uL (0-0.7); Absolute Immature Granulocytes 0.1 10^3/uL (0-0.05); Absolute Lymphocytes 3.9 10^3/uL (1.2-3.4); Absolute Monocytes 1.2 10^3/uL (0.1-0.6); Absolute Neutrophils 4.3 10^3/uL (1.4-6.5); Mean Corp Hgb Conc. 33.2 g/dL (33.0-37.0); Mean Corpuscular Hgb 24.4 pg (27.0-31.0); Mean Corpuscular Volume 73.7 fL (80.0-94.0); Nucleated Red Blood Cells % 5.3 % (-); Red Blood Cell Count 2.62 10^6/uL (4.70-6.10); Red Cell Dist. Width 20.6 % (11.5-14.5); White Blood Cell Count 9.8 10^3/uL (4.8-10.8)
[2024-01-19 15:23] LABS: Hematocrit 19.3 % (39.0-52.0); Hemoglobin 6.4 g/dL (13.0-18.0)
--- NOTE | 2024-01-19 15:27 | ED.GENMED ---
History of Present Illness
General
Chief Complaint: Abnormal Lab Value
Time Seen by Provider: 01/19/24 15:27
Travel History
Have you had any contact with someone who has COVID-19?: No
Do you have any symptoms of coronavirus? Fever > 100 degrees, chills, cough, shortness of breath, sore throat, loss of taste or smell, muscle aches, or headache?: No
History of Present Illness
History of Present Illness:
HPI: The patient presents from [facility] due to a low hemoglobin that was apparently 6.6 drawn on 01/18/2024. He has no new symptoms. He states he has a history of sickle cell disease (not trait). He tells me that he thinks his
baseline hemoglobin is around 7-8. He denies any rectal bleeding and declines rectal examination.
EXAM:
GENERAL: Well appearing in no distress, appears comfortable
HEENT: Moist oral mucosa
CARDIOVASCULAR: No murmurs, normal heart rate, regular rhythm, No chest wall tenderness
PULMONARY: No respiratory distress, breath sounds are clear and equal
ABDOMEN: Soft with no peritoneal signs, no tenderness, patient declined rectal examination
NEUROLOGIC: Excellent strength all extremities, no coordination deficits
PSYCHIATRIC: Appropriate mental status, normal insight and judgement
EXTREMITIES: Nontender, no edema, moves all extremities equally
SKIN: Appears slightly pale
TIME OF INITIAL ENCOUNTER: 3:35 PM
NUMBER AND COMPLEXITY OF PROBLEMS ADDRESSED AT THE ENCOUNTER
� Chronic conditions affecting care: High blood pressure, sickle cell disease
� Acute Exacerbation and/or Progression of Chronic Illness: Chronic anemia, sickle cell disease
� Differential Diagnosis includes: Anemia related to chronic disease/sickle cell disease, GI blood loss but patient declines rectal examination and states he has had no GI bleeding concerns
AMOUNT AND/OR COMPLEXITY OF DATA TO BE REVIEWED AND ANALYZED
� I performed an independent evaluation of and my interpretation is:
EKG:
CT:
X-rays:
Laboratory Studies: Hemoglobin 6.4, reticulocyte count is 6.7%
Other:
� Review of other/old records: I reviewed records, the hemoglobin at discharge 6 weeks ago was 10.0 and at that time came in with a hemoglobin of 6.3; records indicate that he was also managed for sickle cell pain last admission
� Clinical information was obtained by an independent historian: I spoke to corrections officers at bedside
� Prescriptions/Medications Considered but not given:
� Further testing considered but not performed:
RISK OF COMPLICATIONS AND/OR MORBIDITY OR MORTALITY OF PATIENT MANAGEMENT
� Social determinants of health affecting care: Currently staying at [facility]
� Discussion with other providers:
� Escalation of care including admission/observation vs risk of discharge considered: The patient's hemoglobin is lower than it was last admission, he states he received 4 units of blood. I do not think that he needs 4 units of
blood but will plan to give 2 units of blood now to get him a little higher than the 6.4 that is currently. He states his baseline is around 7-8. He denies GI blood loss. He is well-appearing. He prefers outpatient management and does not want
to stay in the. I feel this is reasonable and will order 2 units of blood. 10 PM reassessment, the patient just had blood started now due to delays and needed to come from the [facility].
Phy Exam
Physical Exam
Physical Exam:
See HPI
Course
Orders/Labs/Results
Orders:
Orders
01/19/24 15:11
CMP [Comprehensive Metabolic Panel] Urgent
Complete Blood Count/With Diff Urgent
Reticulocyte Count Urgent
Comment: RETIC ADDED ON BY FLOOR 3:30PM 01-19-24
01/19/24 15:29
Add On- LAB Urgent
Tests Added?: retic count
0.9% Sodium Chloride 1000 ml [Nss] 1,000 ml IV BOLUS
01/19/24 15:31
* Blood Bank Products Urgent
Blood Bank Products: *Packed RBC Leuko(PRBC's)
Quantity: 2
Transfuse Today: Yes
Reason: Anemia
01/19/24 16:05
Type+Screen Urgent
Abnormal Lab Results
01/19/24 01/19/24
15:11 16:05
RBC 2.62 L 10^6/uL
(4.70-6.10)
Hgb 6.4 L* g/dL
(13.0-18.0)
Hct 19.3 L* %
(39.0-52.0)
MCV 73.7 L fL
(80.0-94.0)
MCH 24.4 L pg
(27.0-31.0)
RDW 20.6 H %
(11.5-14.5)
Abs Immat Gran (auto) 0.1 H 10^3/uL
(0-0.05)
Absolute Lymphs (auto) 3.9 H 10^3/uL
(1.2-3.4)
Absolute Monos (auto) 1.2 H 10^3/uL
(0.1-0.6)
Monocytes % 12.4 H %
(1.7-9.3)
Retic Count 6.7 H %
(0.4-2.8)
Chloride 112 H mmol/L
(98-107)
Carbon Dioxide 20 L mmol/L
(22-30)
Total Bilirubin 2.5 H mg/dl
(0.2-1.3)
AST 93 H U/L
(17-59)
Alkaline Phosphatase 169 H U/L
(38-126)
Total Protein 8.4 H g/dl
(6.3-8.2)
Crossmatch IS Only See Detail
01/19/24 15:11
01/19/24 15:11
Vital Signs
Initial and Last Documented VS:
Initial Vital Signs
Temp Pulse Resp BP Pulse Ox
98.0 F 85 18 168/99 100
01/19/24 14:51 01/19/24 14:51 01/19/24 14:51 01/19/24 14:51 01/19/24 14:51
Last Documented Vital Signs
Temp Pulse Resp BP Pulse Ox
99.0 F 70 18 169/95 97
01/20/24 01:28 01/20/24 01:28 01/20/24 01:28 01/20/24 01:28 01/20/24 01:28
*Critical Care Note
Total Time (30-74mins, 75-104mins- exclusive of procedures): Not Applicable
ED Attending Note
-
Portions of this chart may have been created with voice recognition software.� Occasional wrong word or��sound alike� substitutions may have occurred due to the inherent limitations of voice recognition software.
Discharge Plan
Departure
Patient Disposition: Home (Routine Discharge)
Date of Disposition: 01/19/24
Time of Disposition: 15:56
Patient with high blood pressure during this ER visit?: Yes
Discharge Problem:
Anemia
Prescriptions:
No Action
Theragen Tablet
1 tab PO DAILY
losartan 25 mg tablet
75 mg PO HS
folic acid 1 mg tablet
1 mg PO HS
Referrals:
[facility] [Family Provider] -
Activity Restrictions/Additional Instructions:
We have given you 2 units of blood. Your hemoglobin here initially was 6.4. Return here if worse.
Interventions
Interventions:
*Risk Screen - Suicide Last Done: 01/19/24 14:51
*General Assessment Last Done: 01/19/24 14:51
*Neglect/Abuse Screening Last Done: 01/19/24 14:51
ED- Fall Risk Assessment Last Done: 01/19/24 14:51
*ED COVID-19 Vaccine History Last Done: 01/19/24 14:51
*Nursing Disposition Last Done: 01/20/24 01:28
Discharge Date and Time
Discharge Date/Time: 01/20/24 01:29
Print Language: ITALIAN
[2024-01-19 15:35] LABS: ALT (SGPT) 27 U/L (0-50); AST (SGOT) 93 U/L (17-59); Albumin 3.9 g/dl (3.5-5.0); Alkaline Phosphatase 169 U/L (38-126); Blood Urea Nitrogen 15 mg/dl (9-20); Calcium 9.1 mg/dl (8.4-10.2); Carbon Dioxide 20 mmol/L (22-30); Chloride 112 mmol/L (98-107); Estimated Creatinine Clearance 105 ml/min; Glucose 91 mg/dl (70-99); Mean Platelet Volume 9.8 fL (7.4-10.4); Platelet Count 146 10^3/uL (130-400); Potassium 4.8 mmol/L (3.5-5.1); Reticulocyte Count 6.7 % (0.4-2.8); Sodium 138 mmol/L (135-145); Total Bilirubin 2.5 mg/dl (0.2-1.3); Total Protein 8.4 g/dl (6.3-8.2); eGFR > 60.00
[2024-01-19] MEDS: NSS 1000 IV (15:44)
[2024-01-19 15:47] LABS: Normal RBC Morphology No
[2024-01-19 15:48] LABS: Hypochromasia 3+; Polychromasia 1+
[2024-01-19 15:49] LABS: Target Cells 2+
[2024-01-19 15:50] LABS: Sickled Red Blood Cells 2+
[2024-01-19 15:52] LABS: Poikilocytosis 3+
[2024-01-20 00:20] VITALS: BP 161/99
[2024-01-20 00:25] VITALS: BP 167/99
[2024-01-20 00:41] VITALS: BP 161/102
[2024-01-20 01:21] VITALS: BP 167/95
[2024-01-20 01:27] VITALS: BP 165/95
[2024-01-20 01:28] VITALS: BP 169/95
== END 2024-01-20 01:29 | disposition home or self-care (01) ==
LOC: EMR 14:48
PROVIDERS: Emergency Medicine; EMERGENCY PHYSICIAN Emergency Medicine
DX: D57.1 Sickle-cell disease without crisis (principal)
CPT/HCPCS: 99283; 96360; 36430; 80053; 85025; 85045; 86850; 86900; 86901; 86920; P9016

== ENCOUNTER 2024-02-20 08:38 | Inpatient (IN) | payer OTHER, SELFPAY ==
[2024-02-19] VITALS (14 sets, daily range): BP systolic 143–207; BP diastolic 64–119; BMI 22.3
[2024-02-19 12:46] LABS: % Basophils 0.9 % (0-2); % Immature Granulocytes 0.3 % (0-0.5); % Lymphocytes 32.4 % (20.5-51.1); % Monocytes 16.2 % (1.7-9.3); % Neutrophils 49.2 % (42.2-75.2); Absolute Basophils 0.1 10^3/uL (0-0.2); Absolute Eosinophils 0.1 10^3/uL (0-0.7); Absolute Lymphocytes 3.3 10^3/uL (1.2-3.4); Absolute Monocytes 1.6 10^3/uL (0.1-0.6); Absolute Neutrophils 4.9 10^3/uL (1.4-6.5); Hematocrit 23.1 % (39.0-52.0); Hemoglobin 7.9 g/dL (13.0-18.0); Mean Corp Hgb Conc. 34.2 g/dL (33.0-37.0); Mean Corpuscular Hgb 24.9 pg (27.0-31.0); Mean Corpuscular Volume 72.9 fL (80.0-94.0); Mean Platelet Volume 9.7 fL (7.4-10.4); Nucleated Red Blood Cells % 2.1 % (-); Platelet Count 170 10^3/uL (130-400); Red Blood Cell Count 3.17 10^6/uL (4.70-6.10); Red Cell Dist. Width 19.9 % (11.5-14.5)
[2024-02-19 12:59] LABS: ALT (SGPT) 32 U/L (0-50); AST (SGOT) 93 U/L (17-59); Albumin 4.7 g/dl (3.5-5.0); Alkaline Phosphatase 191 U/L (38-126); Blood Urea Nitrogen 56 mg/dl (9-20); Calcium 9.7 mg/dl (8.4-10.2); Carbon Dioxide 22 mmol/L (22-30); Chloride 105 mmol/L (98-107); Estimated Creatinine Clearance 40 ml/min; Glucose 106 mg/dl (70-99); Potassium 4.7 mmol/L (3.5-5.1); Sodium 138 mmol/L (135-145); eGFR 44.73
--- NOTE | 2024-02-19 13:24 | ED.GENMED ---
History of Present Illness
General
Chief Complaint: Abdominal Pain
Time Seen by Provider: 02/19/24 13:00
Travel History
Have you had any contact with someone who has COVID-19?: No
Do you have any symptoms of coronavirus? Fever > 100 degrees, chills, cough, shortness of breath, sore throat, loss of taste or smell, muscle aches, or headache?: No
History of Present Illness
History of Present Illness:
Patient is a 53-year-old incarcerated male with past medical history of hypertension and sickle cell disease here today for evaluation of approximately 3 days of fairly constant progressively worsening generalized abdominal discomfort. Pain is
equal throughout and not on 1 side compared with the other. He also endorses vomiting x 1. No fevers. No diarrhea. No black or bloody stools. Patient denies chest pain or difficulty breathing. No prior abdominal surgeries. Patient does state
he has a history of sickle cell disease and frequently has crises. But he has never had similar symptoms previously related to crisis. He did undergo blood work at the correctional facility on 02/16/2024. I was able to review a small amount of the
results which revealed a hemoglobin of 7.5. Patient was recently transfused 2 units of PRBCs on 01/19/2024. Reported baseline hemoglobin is between 7.5 and 8.5. 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
Review of Systems
Review of Systems
All Other Systems: ROS reviewed and negative except as documented in HPI and ROS
Phy Exam
Physical Exam
Physical Exam:
GENERAL: Alert , in no apparent distress
EYE: pupils equal and reactive
NECK: Supple, no significant adenopathy.
ENT: o/p clr, mmm.
CARDIAC: Regular rate and rhythm .
LUNGS: Clear breath sounds bilaterally, no acute respiratory distress, no wheezes/rales/rhonchi
ABDOMEN: Soft, moderate right upper greater than right lower quadrant abdominal tenderness to palpation, no r/g, no cvat
NEUROLOGICAL: Alert and oriented, no focal neuro deficits
SKIN: Warm and dry, skin intact.
MUSCULOSKELETAL: No edema, well perfused.
PSYCH: Normal and appropriate interaction.
Course
Orders/Labs/Results
Orders:
Orders
02/19/24 12:34
CMP [Comprehensive Metabolic Panel] Urgent
Complete Blood Count/With Diff Urgent
Lipase Urgent
Comment: LIPASE ADDED ON BY FLOOR 1:15PM 02-19-24
02/19/24 13:13
Morphine Sulfate 4 mg IV NOW STA
02/19/24 13:16
Add On- LAB Urgent
Tests Added?: Lipase
02/19/24 13:54
0.9% Sodium Chloride 500 ml [Nss] 500 ml IV BOLUS
02/19/24 14:04
US Abdomen Complete/Upper Urgent
Comment:
Reason For Exam: ruq us, vomiting, tenderness
02/19/24 14:12
0.9% Sodium Chloride 1000 ml [Nss] 1,000 ml IV BOLUS
02/19/24 16:22
HYDROmorphone [Dilaudid] 1 mg IV NOW STA
02/19/24 16:40
Urinalysis Reflex To Culture Urgent
Date Specimen was Collected: 02/19/24
Time Specimen was Collected: 16:38
Urine Microscopic Reflex Cult Urgent
Urine Culture Urgent
DANNI Source: U
Specimen Description:
Date Specimen was Collected: 02/19/24
Time Specimen was Collected: 16:38
02/19/24 17:01
Admit/Transfer Patient As Directed
Co-Sign Provider:
Level of Care: Observation services
Assign to:: Medical/Surgical
Physician / Group: bjorn
Diagnosis: cholelithiasis
Code Status As Directed
Resuscitation Status: Full Code
Abnormal Lab Results
02/19/24 02/19/24
12:34 16:40
RBC 3.17 L 10^6/uL
(4.70-6.10)
Hgb 7.9 L g/dL
(13.0-18.0)
Hct 23.1 L %
(39.0-52.0)
MCV 72.9 L fL
(80.0-94.0)
MCH 24.9 L pg
(27.0-31.0)
RDW 19.9 H %
(11.5-14.5)
Absolute Monos (auto) 1.6 H 10^3/uL
(0.1-0.6)
Monocytes % 16.2 H %
(1.7-9.3)
BUN 56 H mg/dl
(9-20)
Creatinine 1.8 H mg/dL
(0.7-1.3)
Glucose 106 H mg/dl
(70-99)
Total Bilirubin 3.0 H mg/dl
(0.2-1.3)
AST 93 H U/L
(17-59)
Alkaline Phosphatase 191 H U/L
(38-126)
Total Protein 10.0 H g/dl
(6.3-8.2)
Ur Occult Blood Reflex Trace A
(Negative)
Urine Bacteria (Reflex) Moderate A
(Negative)
02/19/24 12:34
02/19/24 12:34
Vital Signs
Initial and Last Documented VS:
Initial Vital Signs
Temp Pulse Resp BP Pulse Ox
98.3 F 88 20 207/110 100
02/19/24 12:25 02/19/24 12:25 02/19/24 12:25 02/19/24 12:25 02/19/24 12:25
Last Documented Vital Signs
Temp Pulse Resp BP Pulse Ox
98.3 F 82 18 186/119 100
02/19/24 12:25 02/19/24 16:30 02/19/24 16:30 02/19/24 16:30 02/19/24 16:30
MDM/Problems Addressed
Differential Diagnosis Includes:
Patient is a 53-year-old incarcerated male with past medical history of hypertension and sickle cell disease here today for evaluation of approximately 3 days of worsening abdominal pain. Overall, patient appears uncomfortable. He is significantly
hypertensive to 207/110. He is afebrile. Physical examination described above. At this time, will insert IV and provide 4 mg IV morphine for pain control. Will obtain screening labs and urinalysis. Will obtain RUQ US given symptoms/location of
pain.
02/19/2024 17:00: Screening labs reveal mild anemia with a hemoglobin of 7.9 which is consistent with the patient's baseline. BUN 56/creatinine 1.8. Creatinine significantly increased from baseline of 0.8 approximately 1 month ago. AST 93.
Alkaline phosphatase 191. Total bilirubin 3.0. Urinalysis grossly negative aside from trace blood. There is moderate bacteria. A right upper quadrant ultrasound was obtained which reveals cholelithiasis with biliary sludge and small calculi in
the gallbladder. There is also a 2.8 cm right renal cyst. Patient reassessed and still has significant discomfort despite multiple doses of IV analgesia. Given intractable pain associated with ultrasound findings and acute kidney injury, patient
will be admitted to medicine for further testing and evaluation. Medicine will contact general surgery. All questions answered. Stable for admission.
*Critical Care Note
Total Time (30-74mins, 75-104mins- exclusive of procedures): Not Applicable
ED Attending Note
-
Portions of this chart may have been created with voice recognition software.� Occasional wrong word or��sound alike� substitutions may have occurred due to the inherent limitations of voice recognition software.
Discharge Plan
Departure
Patient Disposition: Admit
Date of Disposition: 02/19/24
Time of Disposition: 16:36
Admit to: Med/Surg
Admit to doctor: Ange Coker
Presentation/result/management discussed w/ accepting MD/DO: Hospitalist
Patient with high blood pressure during this ER visit?: Yes
Condition: Fair
Covid-19: Not Applicable
Discharge Problem:
Right upper quadrant abdominal pain, Sickle cell disease with crisis, Cholelithiasis, Acute kidney injury
Prescriptions:
No Action
Theragen Tablet
1 tab PO DAILY
folic acid 1 mg tablet
1 mg PO HS
hydrochlorothiazide 25 mg Tablet
25 mg PO DAILY
losartan 100 mg Tablet
100 mg PO HS
Referrals:
[facility] [Family Provider] -
Interventions
Interventions:
*Risk Screen - Suicide Last Done: 02/19/24 12:22
*General Assessment Last Done: 02/19/24 12:22
*Neglect/Abuse Screening Last Done: 02/19/24 12:22
*ED COVID-19 Vaccine History Last Done: 02/19/24 12:22
HL-Voimrx-Orznkewhay Assessment Last Done: 02/19/24 12:23
Discharge Date and Time
Print Language: POLISH
[2024-02-19] MEDS: MORPHINE SULFATE 4 MG IV (13:27)
[2024-02-19] MEDS: NSS 1000 IV ×2 (14:15→19:54)
[2024-02-19 14:45] LABS: Lipase 201 U/L (23-300)
[2024-02-19] MEDS: DILAUDID 1 MG IV (16:37)
[2024-02-19 16:58] LABS: Urine Albumin Trace (Neg - Trace); Urine Bilirubin Negative (Negative); Urine Character Clear (Clear); Urine Color Yellow; Urine Glucose Negative (Negative); Urine Ketone Negative (Negative); Urine Leukocyte Negative (Negative); Urine Nitrite Negative (Negative); Urine Occult Blood Trace (Negative); Urine Specific Gravity 1.015 (<1.030); Urine Urobilinogen Negative (Neg - 1+)
--- NOTE | 2024-02-19 17:05 | HPS.HSE ---
Family Physician
-
Family Physician: Facility [facility]
Chief Complaint
-
abdominal pain
History of Present Illness
53-year-old incarcerated male with past medical history of hypertension, sickle cell disease here for 3 days of right upper quadrant pain. Patient last had pain like this 3 years ago at which point he went to the emergency room and was found to
have gallstones. This pain is not similar to sickle cell crisis pain. Pain comes and goes in waves. Pain does radiate superiorly but does not radiate around to the back or to the shoulder. He denies any fevers or chills. He did have an episode
of vomiting. He denies any diarrhea or constipation.
No black or bloody stools. No chest pain or trouble breathing. No prior abdominal surgeries.
Patient recently had blood work at correctional facility which showed hemoglobin 7.5. He received 2 units of blood on 01/19/2024. His baseline hemoglobin is between 7.5-8.5. 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
He does smoke half a pack of cigarettes per day. He does use marijuana. He denies alcohol use. He denies any other drugs.
Medical History
Past Medical History
Past Medical History: Reports Other (hypertension, sickle cell disease )
Past Surgical History: Reports None
Social History
Tobacco: Smoker
Alcohol: None
Drug: Marijuana
Family History
Family History: Not pertinent
Allergies / Home Medications
Allergies reflects when Allergies were last updated in [employer].
Home Medications with original date entered in [employer]
Allergy/Medication List:
Allergies
Allergy/AdvReac Type Severity Reaction Status Date / Time
No Known Allergies Allergy Unverified 11/29/23 02:19
Home Medications
folic acid 1 mg tablet 1 mg PO HS 01/19/24
therapeutic multivitamin 1 tab PO DAILY 01/19/24
hydrochlorothiazide 25 mg tablet 25 mg PO DAILY 02/19/24
losartan 100 mg tablet 100 mg PO HS 02/19/24
Review of Systems
-
History Source: Patient
A 12 point ROS was completed and negative except as noted: Yes
Constitutional: Reports No Symptoms
EENT: Reports No Symptoms
Respiratory: Reports No Symptoms
Cardiac: Reports No Symptoms
Abdomen/GI: Reports See HPI
: Reports No Symptoms
Musculoskeletal: Reports No Symptoms
Skin: Reports No Symptoms
Neurological: Reports No Symptoms
Endocrine: Reports No Symptoms
Hematologic/Lymphatic: Reports No Symptoms
Psych: Reports No Symptoms
Physical Exam
Vital Signs
Vital Signs
Temp Pulse Resp BP Pulse Ox
98.3 F 82 18 186/119 100
02/19/24 12:25 02/19/24 16:30 02/19/24 16:30 02/19/24 16:30 02/19/24 16:30
Physical Exam
General: Well Developed, Well Nourished and No Apparent Distress
HEENT: NormoCephalic, Moist mucous membranes and Atraumatic
Respiratory: Clear
Cardiac: S1/S2 and Regular Rhythm; No Murmur or Rub
GI: Soft, Non Distended, Normal Bowel Sounds and Tender (RUQ ); No Organomegaly
Rectal: Deferred by Provider
Musculoskeletal: No Clubbing, No Cyanosis and No Edema
Skin: No Rash
Neuro: Nonfocal/grossly intact
Laboratory Results
-
02/19/24 12:34
02/19/24 12:34
Laboratory Results
Total Bilirubin 3.0 mg/dl (0.2-1.3) H 02/19/24 12:34
AST 93 U/L (17-59) H 02/19/24 12:34
ALT 32 U/L (0-50) 02/19/24 12:34
Alkaline Phosphatase 191 U/L (38-126) H 02/19/24 12:34
Lipase Cancelled 02/19/24 13:13
Data Reviewed
-
Lab Data: Labs Reviewed by me
Old Records: Reviewed
Impression/Plan
-
IMPRESSION:
PLAN:
# Right upper quadrant abdominal pain secondary to cholelithiasis/biliary sludge, sickle cell crisis less likely
-Clear liquid diet, n.p.o. past midnight
-IV fluids
-Dilaudid for pain
-General surgery consulted
-Check LDH, reticulocyte count
# Acute kidney injury likely prerenal
-IV fluids
-Hold hydrochlorothiazide, losartan
Essential hypertension
-Hold hydrochlorothiazide, losartan due to SANA
-As needed hydralazine for elevated blood pressure
Sickle cell disease
-Continue folic acid
Chronic microcytic anemia
-Baseline hemoglobin reportedly 7.5 to 8.5
-Currently 7.9
-Check iron studies, B12, folate
Marijuana use
Smoker
-Nicotine patch
Full code
DVT prophylaxis�heparin
Clear liquid diet, NPO past midnight
[2024-02-19 17:11] LABS: Urine Squamous Cell 0-2 /LPF (Few)
[2024-02-19 17:12] LABS: Urine Bacteria Moderate (Negative); Urine Red Blood Cell 0-2 /HPF (0-2); Urine White Cell 0-2 /HPF (0-5)
[2024-02-19] MEDS: APRESOLINE 5 MG IV (19:11)
[2024-02-19] MEDS: DILAUDID 0.5 MG IV ×2 (19:12→23:20)
[2024-02-19 19:14] LABS: Reticulocyte Count 3.4 % (0.4-2.8)
--- NOTE | 2024-02-19 19:30 | PTCARENOTE ---
Pt received from ED via stretcher accompanied by two correctional officers- pt confidential. Pt admitted for Cholelithiasis. General surgery consulted.
Medsurg orders> afebrile, HR 78, RR 16, BP 189/111, pox 99% room air. Pt c/o 05/28 RUQ abd pain
PRN Hydralazine and IV Dilaudid administered. Pt's hydrochlorothiazide on hold.
PMH and medications reviewed by this RN and pt. Plan of care discussed. Pt ordered clear diet. NPO after midnight.
Call [facility] within reach.
[2024-02-19 19:38] LABS: Iron 202 ug/dl (49-181); LDH 668 U/L (120-246)
[2024-02-19 19:47] LABS: Percent Saturation 58 % (20-50); Total Iron Binding Capacity 344 ug/dl (261-462)
[2024-02-19] MEDS: HEPARIN 5000 UNITS SC (19:55)
[2024-02-19] MEDS: FOLVITE 1 MG PO (21:25)
[2024-02-20 00:24] LABS: Folate > 20.0 ng/ml (2.76-20)
[2024-02-20] MEDS: DILAUDID 1 MG IV ×3 (02:14→15:10)
[2024-02-20 02:36] LABS: Vitamin B12 430 pg/ml (239-931)
[2024-02-20 06:00] VITALS: BMI 22.3
[2024-02-20] MEDS: NSS 1000 IV ×2 (06:15→18:34)
[2024-02-20 06:39] LABS: % Basophils 0.8 % (0-2); % Eosinophils 1.2 % (0-6); % Immature Granulocytes 0.4 % (0-0.5); % Lymphocytes 39.2 % (20.5-51.1); % Monocytes 14.7 % (1.7-9.3); % Neutrophils 43.7 % (42.2-75.2); Absolute Basophils 0.1 10^3/uL (0-0.2); Absolute Eosinophils 0.1 10^3/uL (0-0.7); Absolute Immature Granulocytes 0.1 10^3/uL (0-0.05); Absolute Lymphocytes 4.6 10^3/uL (1.2-3.4); Absolute Monocytes 1.7 10^3/uL (0.1-0.6); Absolute Neutrophils 5.2 10^3/uL (1.4-6.5); Mean Corp Hgb Conc. 34.2 g/dL (33.0-37.0); Mean Corpuscular Hgb 24.5 pg (27.0-31.0); Mean Corpuscular Volume 71.6 fL (80.0-94.0); Mean Platelet Volume 9.5 fL (7.4-10.4); Nucleated Red Blood Cells % 1.5 % (-); Platelet Count 144 10^3/uL (130-400); Red Blood Cell Count 2.61 10^6/uL (4.70-6.10); White Blood Cell Count 11.8 10^3/uL (4.8-10.8)
[2024-02-20 06:59] LABS: Hematocrit 18.7 % (39.0-52.0); Hemoglobin 6.4 g/dL (13.0-18.0)
[2024-02-20 07:10] LABS: ALT (SGPT) 27 U/L (0-50); AST (SGOT) 77 U/L (17-59); Albumin 3.8 g/dl (3.5-5.0); Alkaline Phosphatase 164 U/L (38-126); Blood Urea Nitrogen 44 mg/dl (9-20); Calcium 8.9 mg/dl (8.4-10.2); Carbon Dioxide 21 mmol/L (22-30); Chloride 109 mmol/L (98-107); Estimated Creatinine Clearance 58 ml/min; Glucose 88 mg/dl (70-99); Potassium 4.8 mmol/L (3.5-5.1); Sodium 138 mmol/L (135-145); Total Bilirubin 2.8 mg/dl (0.2-1.3); Total Protein 8.3 g/dl (6.3-8.2); eGFR > 60.00
[2024-02-20 07:25] VITALS: BP 152/98
--- NOTE | 2024-02-20 07:27 | CON.GS ---
Addendum entered and electronically signed by Feliciano Hatch MD 02/20/24 17:06:
HIDA demonstrates cystic duct patency. Plan for trial of LFD
Original Note:
Medical History
-
Chief Complaint: Abdominal pain
History of Present Illness:
Patient is a 53 yo M with a PMH of HTN, tobacco use, and sickle cell disease who presents with several days of abdominal pain. Mr. Bellamy states that his pain waxes and wanes throughout the day. No clear association with oral intake. Pain is
mostly localized to the RIGHT side. He states that he had similar pains previously but that these resolved. Patient denies any jaundice, pale stools, or tea colored urine. Of note, patient follows with a carbon dioxide operator down at [facility]. Patient is
recently incarcerated, during which time his current symptoms began.
Past Medical History
Past Medical History: HTN and Other (Sickle cell anemia)
Past Surgical History: None
Social History
Tobacco: Smoker (1/2 PPD)
Alcohol: None
Drug: Marijuana
Living: Detention
Family History
Family History: Reviewed & Noncontributory
Allergies / Home Medications
Allergy/AdvReac Type Severity Reaction Status Date / Time
No Known Allergies Allergy Unverified 11/29/23 02:19
�Medication �Instructions �Recorded �Confirmed �Type
folic acid 1 mg tablet 1 mg PO HS 01/19/24 02/19/24 History
therapeutic multivitamin 1 tab PO DAILY 01/19/24 02/19/24 History
hydrochlorothiazide 25 mg tablet 25 mg PO DAILY 02/19/24 02/19/24 History
losartan 100 mg tablet 100 mg PO HS 02/19/24 02/19/24 History
Review of Systems
-
A 10 point review of systems was completed, and was negative except as per HPI.
Physical Exam
Vital Signs
Temp Pulse Resp BP Pulse Ox
97.8 F 84 18 153/98 98
02/19/24 23:16 02/19/24 23:16 02/19/24 23:16 02/19/24 23:16 02/19/24 23:16
02/19/24 02/20/24 02/21/24
06:59 06:59 06:59
Actual Weight 66.451 kg
Body Mass Index (BMI) 22.3
Lab Results
02/20/24 06:12
02/20/24 06:12
WBC 11.8 10^3/uL (4.8-10.8) H 02/20/24 06:12
Hgb 6.4 g/dL (13.0-18.0) L* 02/20/24 06:12
Hct 18.7 % (39.0-52.0) L* 02/20/24 06:12
Plt Count 144 10^3/uL (130-400) 02/20/24 06:12
Abs Immat Gran (auto) 0.1 10^3/uL (0-0.05) H 02/20/24 06:12
Neutrophils % 43.7 % (42.2-75.2) 02/20/24 06:12
Physical Exam
General: Well Developed, Well Nourished and No Apparent Distress
HEENT: Normocephalic and Scleral Icterus
Respiratory: Non Labored Respirations
Cardiac: Regular Rhythm
GI: Soft, Non Distended and Tender (RIGHT abdomen)
Musculoskeletal: No Edema
Skin: Warm and Dry
Neuro: Nonfocal/Grossly Intact
Data Reviewed
-
Ultrasound: Image Personally Visualized and interpreted and Report Reviewed by me
Labs: Labs Reviewed by me
Assessment / Plan
-
Patient is a 53 yo M p/w abdominal pain
Differential includes biliary colic versus sequela from sickle cell disease. Bilirubin notably elevated and likely related to sickle cell disease. Acute anemia down from labs yesterday likely a sequela of sickle cell disease. Clinical history is
not entirely consistent with biliary colic given the persistent and waxing waning pain throughout the day without any clear association with oral intake. Ultrasound does not demonstrate any evidence of gallbladder wall thickening or pericholecystic
fluid. No plan or recommendation for cholecystectomy at this time. Further workup with breakdown of bilirubin and HIDA scan ordered. All questions answered.
-- No plans for cholecystectomy at this time, further work-up
-- Transfusion and management of his anemia per Hospitalist
-- Direct bilirubin
-- HIDA scan
--- NOTE | 2024-02-20 08:20 | PTCARENOTE ---
Patient's hemoglobin is low this morning at 6.4, no H&H on file. Patient with s/s of bleed. Dr Chaidez notified of lab result.
--- NOTE | 2024-02-20 08:31 | PTCARENOTE ---
Addendum entered by Lena Salazar RN 02/20/24 11:48:
Patient's hemoglobin is low this morning at 6.4, no type & screen on file. Patient with no s/s of bleed. Dr Chaidez notified of lab result. Blood specimen collect, awaiting results.
Original Note:
Patient's hemoglobin is low this morning at 6.4, no type & screen on file. Patient with s/s of bleed. Dr Chaidez notified of lab result.
[2024-02-20] MEDS: THERAGRAN 1 TABLET PO (09:01)
[2024-02-20] MEDS: NICODERM TRANSDERMAL 7 MG TRANSDERM (09:01)
[2024-02-20] MEDS: HEPARIN 5000 UNITS SC ×2 (09:02→20:47)
--- NOTE | 2024-02-20 09:46 | CON.ONC ---
Impression
Impression
Sickle cell disease
Anemia, reported baseline hemoglobin 7-8
Right upper quadrant pain
Plan
Plan
Agree with plans for blood transfusion today
surgical evaluation ongoing for right upper quadrant pain. For HIDA scan today
If surgery is planned, would transfuse to a goal hemoglobin of 10 preoperatively
Continue folic acid. He does not take hydroxyurea for sickle cell
Recommend incentive spirometry
Outpatient follow-up with Dr. Mcdonald, his wood grainer at [place]
We will follow along peripherally. Please call with questions
Patient History
History of Present Illness
This is a 53-year-old man with a history of sickle cell disease, followed by Dr. Mcdonald at [facility], who was admitted with right upper quadrant pain. He was hospitalized here in November with sickle pain crisis and associated acute
nonischemic myocardial injury. He was transfused with 4 units of packed red blood cells during that hospital stay. He was seen in the emergency room on January 19, 2024 with hemoglobin of 6.6, transfused 2 units of packed red blood cells at that time.
He reports his baseline hemoglobin is around 7 or 8.
He presented to the emergency room on February 18 complaining of 3 days of right upper quadrant pain, not similar to prior sickle cell pain crises. He reports some nausea and vomiting, decreased appetite and weight loss. Abdominal ultrasound on February 18
showed cholelithiasis with biliary sludge and small calculi in the gallbladder and a 2.8 cm right renal cyst.
Past-Medical/Surgical History
Past medical history includes hypertension and sickle cell disease, genotype unknown to me. No prior surgery
Social history: He is currently incarcerated at [facility], lives in [place]. He smokes a half a pack of cigarettes daily and also smokes marijuana. Denies alcohol use
Family history: Noncontributory
Patient Medication
�Medication �Instructions �Recorded �Confirmed �Last Taken �Type
folic acid 1 mg tablet 1 mg PO HS 01/19/24 02/19/24 02/19/24 History
therapeutic multivitamin 1 tab PO DAILY 01/19/24 02/19/24 02/19/24 History
hydrochlorothiazide 25 mg tablet 25 mg PO DAILY 02/19/24 02/19/24 02/18/24 History
losartan 100 mg tablet 100 mg PO HS 02/19/24 02/19/24 02/18/24 History
Active Medications
Generic Name Dose Route Start Last Admin
Trade Name Freq PRN Reason Stop Dose Admin
Folic Acid 1 mg 02/19/24 22:00 02/19/24 21:25
Folic Acid 1 Mg Tablet PO 03/18/24 21:59 1 mg
HS JUSTIN Administration
Heparin Sodium 5,000 units 02/19/24 20:00 02/20/24 09:02
Heparin 5,000 Units/Ml 1 Ml Vial SC 03/18/24 19:59 5,000 units
Q12 JUSTIN Administration
Hydralazine HCl 5 mg 02/19/24 18:57 02/19/24 19:11
Hydralazine 20 Mg/Ml Vial IV 03/18/24 18:56 5 mg
Q6HPRN PRN Administration
SBP>180
Hydromorphone HCl 0.5 mg 02/20/24 03:54
Hydromorphone 0.5 Mg/0.5 Ml Syringe IV 03/04/24 18:56
Q4HPRN PRN
mod pain
Hydromorphone HCl 1 mg 02/20/24 03:54 02/20/24 07:13
Hydromorphone 1 Mg/Ml Carpuject IV 03/05/24 03:53 1 mg
Q4HPRN PRN Administration
severe pain
Sodium Chloride 1,000 mls @ 100 mls/hr 02/19/24 18:57 02/20/24 06:15
Nss IV 1,000 mls
.Q10H JUSTIN Administration
Multivitamins Therapeutic 1 tablet 02/20/24 08:00 02/20/24 09:01
Multivitamin Tablet PO 03/19/24 07:59 1 tablet
DAILY JUSTIN Administration
Nicotine 7 mg 02/20/24 08:00 02/20/24 09:01
Nicotine 7 Mg Patch TRANSDERM 03/19/24 07:59 7 mg
DAILY JUSTIN Administration
Ondansetron HCl 4 mg 02/19/24 18:57
Ondansetron 4 Mg/2 Ml Vial IV 03/18/24 18:56
Q6HPRN PRN
nausea and vomiting
Sodium Chloride 0 flush 02/19/24 19:00
Sodium Chloride 0.9% (Flush) Syringe IV 03/18/24 18:59
PER PROTOCOL JUSTIN
Review of Systems
-
History Source: Patient
All Other Systems: Not reviewed unless documented
Physical Exam
-
General: Well Developed, Well Nourished, No Apparent Distress and Comfortable
HEENT: Jaundice
Cardiology: Normal Sinus Rhythm
Pulmonary: Clear; Negative Wheezes, Rales or Rhonchi
GI: Other (Tender in right upper quadrant)
Musculoskeletal: No Cyanosis, No Edema and Clubbing; Negative No Clubbing
Extremities: Negative Phlebitic Signs or Edema
Neurology: Non Focal
Skin: Warm and Dry
Psych: Calm and Intact Judgement/Insight
Labs
Lab Results
WBC 11.8 10^3/uL (4.8-10.8) H 02/20/24 06:12
RBC 2.61 10^6/uL (4.70-6.10) L 02/20/24 06:12
Hgb 6.4 g/dL (13.0-18.0) L* 02/20/24 06:12
Hct 18.7 % (39.0-52.0) L* 02/20/24 06:12
MCV 71.6 fL (80.0-94.0) L 02/20/24 06:12
MCH 24.5 pg (27.0-31.0) L 06/04/24 06:12
MCHC 34.2 g/dL (33.0-37.0) 02/20/24 06:12
RDW 20.0 % (11.5-14.5) H 02/20/24 06:12
Plt Count 144 10^3/uL (130-400) 02/20/24 06:12
MPV 9.5 fL (7.4-10.4) 02/20/24 06:12
Abs Immat Gran (auto) 0.1 10^3/uL (0-0.05) H 02/20/24 06:12
Absolute Neuts (auto) 5.2 10^3/uL (1.4-6.5) 02/20/24 06:12
Absolute Lymphs (auto) 4.6 10^3/uL (1.2-3.4) H 02/20/24 06:12
Absolute Monos (auto) 1.7 10^3/uL (0.1-0.6) H 02/20/24 06:12
Absolute Eos (auto) 0.1 10^3/uL (0-0.7) 02/20/24 06:12
Absolute Basos (auto) 0.1 10^3/uL (0-0.2) 02/20/24 06:12
Immature Gran % 0.4 % (0-0.5) 02/20/24 06:12
Neutrophils % 43.7 % (42.2-75.2) 02/20/24 06:12
Lymphocytes % 39.2 % (20.5-51.1) 02/20/24 06:12
Monocytes % 14.7 % (1.7-9.3) H 02/20/24 06:12
Eosinophils % 1.2 % (0-6) 02/20/24 06:12
Basophils % 0.8 % (0-2) 02/20/24 06:12
Creatinine 1.4 mg/dL (0.7-1.3) H 02/20/24 06:12
Vital Signs
Vital Signs
Temp Pulse Resp BP Pulse Ox
98.4 F 97 18 152/98 94
02/20/24 07:25 02/20/24 07:25 02/20/24 07:25 02/20/24 07:25 02/20/24 07:25
[2024-02-20 10:19] LABS: Direct Bilirubin 1.4 mg/dl (0.0-0.4)
--- NOTE | 2024-02-20 11:16 | W.PN.HOSP.TC ---
Today's Communication/Plan
-
Continue with IV fluids and pain medication
Transfuse PRBC
Follow HIDA scan
Assessment / Plan
Assessment / Plan
# Acute abdominal pain
Unclear of biliary disease versus vaso-occlusive disease in the abdomen from sickle cell. Currently without any chest pain syndrome. Oxygenating okay.
Follow-up HIDA scan. Currently ultrasound no evidence of cholecystitis.
Drop in H&H noted. Check hemolysis panel.
Hydrate patient patient adequately. Continue the pain medication. Will transfuse 1 unit of blood. Consult hematology.
-Start on clear liquid diet.
# Acute kidney injury likely prerenal
-Continue with IV fluids
-Hold hydrochlorothiazide, losartan
Essential hypertension
-Hold hydrochlorothiazide, losartan due to SANA
-As needed hydralazine for elevated blood pressure
Sickle cell disease
-Continue folic acid
Chronic microcytic anemia
-Baseline hemoglobin reportedly 7.5 to 8.5
-Currently 7.9
-Check iron studies, B12, folate
Marijuana use
Smoker
-Nicotine patch
Full code
DVT prophylaxis�heparin
Discussed with hematology
Anticipated Discharge: > 48 hours
Subjective/Interval History
-
Date of Service: February 20, 2024
Patient still with persistent abdominal pain. No nausea vomiting.
No fever or chills.
Denies any chest pain or bone pains.
Last crisis was many months ago. He did have 2 come and get blood transfusion twice this year apparently.
Objective Data
-
Labs:
Laboratory Results
02/20/24
06:12
WBC 11.8 H
Hgb 6.4 L*
Hct 18.7 L*
Plt Count 144
Sodium 138
Potassium 4.8
Chloride 109 H
Carbon Dioxide 21 L
BUN 44 H
Creatinine 1.4 H
Glucose 88
Calcium 8.9
Total Bilirubin 2.8 H
AST 77 H
ALT 27
Alkaline Phosphatase 164 H
Vital Signs:
Vital Signs
Temp Pulse Resp BP Pulse Ox
98.4 F 97 18 152/98 94
02/20/24 07:25 02/20/24 07:25 02/20/24 07:25 02/20/24 07:25 02/20/24 07:25
I&O
02/19/24 02/20/24 02/21/24
06:59 06:59 06:59
Intake Total 1759
Balance 1759
Review of Systems
-
Constitutional: Denies Fever or Chills
EENT: Denies Sore Throat
Respiratory: Denies Cough or Trouble Breathing
Cardiac: Denies Chest Pain
Abdomen/GI: Reports Abdominal Pain; Denies Nausea or Vomiting
Neuro: Denies Dizzy
Physical Exam
-
General: No Apparent Distress
HEENT: Moist Mucous Membranes
Respiratory: Clear to Auscultation
Cardiac: Regular Rhythm and S1/S2
GI: Soft, Nondistended and Normal Bowel Sounds; Negative Tender (lot of voluntary guarding )
Neuro: AO x 3
Data Reviewed
-
Labs: Labs Reviewed by me
--- NOTE | 2024-02-20 15:10 | CM ---
Patient is an inmate at [facility]. He is independent in ADL's and mobility. No DME on additional skilled services, no Psychiatric history or hospitalizations. Discharge Plan of Care: Return to Correctional Facility.
[2024-02-20 15:12] VITALS: BP 160/98
[2024-02-20] MEDS: NSS IV (15:14)
[2024-02-20] MEDS: DILAUDID 0.5 MG IV ×2 (21:24→23:29)
[2024-02-20] MEDS: FOLVITE 1 MG PO (21:24)
[2024-02-20 22:54] VITALS: BP 166/94
--- NOTE | 2024-02-20 23:57 | W.PN.UPDATE ---
Update Note
Progress Note Update
Order for 1 unit PRBCs placed by attending. Blood consent obtained. Patient verbalized understanding of risks, benefits, and possible complications. He has received blood products before and has given consent for transfusion this evening. Blood
product consent form signed in presence of this provider. Signed form given to nurse to place on chart.
[2024-02-21] VITALS (10 sets, daily range): BP systolic 124–155; BP diastolic 73–97
[2024-02-21] MEDS: DILAUDID 1 MG IV ×5 (03:00→20:21)
[2024-02-21 05:26] LABS: Mean Corpuscular Hgb 24.9 pg (27.0-31.0); Mean Corpuscular Volume 75.5 fL (80.0-94.0); Mean Platelet Volume 9.8 fL (7.4-10.4); Platelet Count 163 10^3/uL (130-400); Red Blood Cell Count 2.77 10^6/uL (4.70-6.10); Red Cell Dist. Width 20.4 % (11.5-14.5); Reticulocyte Count 4.3 % (0.4-2.8); White Blood Cell Count 12.6 10^3/uL (4.8-10.8)
[2024-02-21 05:48] LABS: ALT (SGPT) 27 U/L (0-50); AST (SGOT) 76 U/L (17-59); Albumin 3.7 g/dl (3.5-5.0); Alkaline Phosphatase 150 U/L (38-126); Blood Urea Nitrogen 34 mg/dl (9-20); Calcium 8.7 mg/dl (8.4-10.2); Carbon Dioxide 23 mmol/L (22-30); Chloride 108 mmol/L (98-107); Estimated Creatinine Clearance 68 ml/min; Glucose 81 mg/dl (70-99); Potassium 5.1 mmol/L (3.5-5.1); Sodium 139 mmol/L (135-145); Total Bilirubin 2.8 mg/dl (0.2-1.3); Total Protein 8.3 g/dl (6.3-8.2); eGFR > 60.00
[2024-02-21] MEDS: NSS 1000 IV ×2 (06:06→17:03)
[2024-02-21 06:27] LABS: Hematocrit 20.9 % (39.0-52.0); Hemoglobin 6.9 g/dL (13.0-18.0)
--- NOTE | 2024-02-21 06:44 | W.PN.ONC2 ---
Today's Communication / Plan
-
See PLAN. Another unit PRBC ordered in case SS crisis pain.
Impression
Impression
Sickle cell disease
Anemia, reported baseline hemoglobin 7-8
Right upper quadrant pain
Plan
Plan
HIDA scan negative.
Await surgical decision. They ordered low fat diet (LFD).
Unlikely he'll need surgery. If needed, would transfuse to a goal hemoglobin of 10 preoperatively
Continue folic acid. He does not take hydroxyurea for sickle cell
HgB 6.9. As this can be SS crisis, will transfuse another 1 unit PRBC.
Outpatient follow-up with Dr. Mcdonald, his home administrator at [place]
We will follow along peripherally. Please call with questions
Subjective/Objective
Chief Complaint
ACS Heme Onc
Subjective
Still with RUQ pain. States usually his SS pain in joints so this is an atypical location for SS navarro crisis. Feels a bit better s/p PRBC.
Vital Signs:
Vital Signs
Temp Pulse Resp BP Pulse Ox
98.3 F 90 14 135/95 96
02/21/24 02:58 02/21/24 02:58 02/21/24 02:58 02/21/24 02:58 02/21/24 02:58
Lab Results:
Laboratory Data
WBC 12.6 10^3/uL (4.8-10.8) H 02/21/24 04:36
Hgb 6.9 g/dL (13.0-18.0) L* 02/21/24 04:36
Plt Count 163 10^3/uL (130-400) 02/21/24 04:36
eGFR > 60.00 02/21/24 04:36
Physical Exam
HEENT: Moist Mucous Membranes
Cardiology: S1 and S2
Pulmonary: Clear
GI: Soft and Normal Bowel Sounds
Extremities: No C/C/E
[2024-02-21] MEDS: HEPARIN 5000 UNITS SC ×2 (07:50→20:20)
[2024-02-21] MEDS: THERAGRAN 1 TABLET PO (07:50)
[2024-02-21] MEDS: NICODERM TRANSDERMAL TRANSDERM (07:52)
--- NOTE | 2024-02-21 09:33 | PTCARENOTE ---
pt receiving 1 Unit PRBC this morning. Vitals documented within TAR. Pt receiving through R hand. pt verbalized 8/10 abd pain this AM. pt given prn dilaudid. see MAR for proper documentation
--- NOTE | 2024-02-21 11:36 | W.PN.HOSP.TC ---
Today's Communication/Plan
-
Transfuse another unit of PRBC and follow H&H.
Continue with IV hydration and pain medication
Advance diet.
Assessment / Plan
Assessment / Plan
# Acute abdominal pain
Unclear of biliary disease versus vaso-occlusive disease in the abdomen from sickle cell. suspect latter.
HIDA neg.
Currently ultrasound no evidence of cholecystitis.
Drop in H&H noted. hemolysis panel noted .
Hydrate patient patient adequately. Continue the pain medication. transfused 1 unit of blood. Optimize H&H. Transfuse 1 more unit today.
Advance diet.
# Acute kidney injury likely prerenal
- Improving
-Continue with IV fluids
-Hold hydrochlorothiazide, losartan
Essential hypertension
-Hold hydrochlorothiazide, losartan due to SANA
-As needed hydralazine for elevated blood pressure
Sickle cell disease
-Continue folic acid
- no splenic enlargement, it is normal in size
Chronic microcytic anemia
-Baseline hemoglobin reportedly 7.5 to 8.5
-Check iron studies, B12, folate
Mixed hyperbilirubinemia-mild AST elevation noted. No biliary ductal dilatation. Liver is normal. Follow labs after sickle cell pain crisis is over.
Marijuana use
Smoker
-Nicotine patch
Full code
DVT prophylaxis�heparin
Discussed with hematology today - tx one more unit today
Anticipated Discharge: > 48 hours
Subjective/Interval History
-
Date of Service: February 21, 2024
Patient still complains of abdominal discomfort. No nausea vomiting. States he is tolerating clear liquids.
No fever or chills.
He prior had sickle cell crisis mostly involving lower extremities. Never had abdo pain as part of sickle cell crisis pain.
Denies any chest pain or shortness of breath. No fever or chills.
Objective Data
-
Labs:
Laboratory Results
02/21/24
04:36
WBC 12.6 H
Hgb 6.9 L*
Hct 20.9 L*
Plt Count 163
Sodium 139
Potassium 5.1
Chloride 108 H
Carbon Dioxide 23
BUN 34 H
Creatinine 1.2
Glucose 81
Calcium 8.7
Total Bilirubin 2.8 H
AST 76 H
ALT 27
Alkaline Phosphatase 150 H
Vital Signs:
Vital Signs
Temp Pulse Resp BP Pulse Ox
98.5 F 98 16 139/86 96
02/21/24 09:45 02/21/24 09:45 02/21/24 09:45 02/21/24 09:53 02/21/24 09:36
I&O
02/20/24 02/21/24 02/22/24
06:59 06:59 06:59
Intake Total 1760 / 1760 3570 / 3570 0 / 0
Balance 1760 / 1760 3570 / 3570 0 / 0
Review of Systems
-
Constitutional: Denies Fever
EENT: Denies Sore Throat
Respiratory: Denies Trouble Breathing
Cardiac: Denies Chest Pain
Neuro: Denies Dizzy
Physical Exam
-
General: No Apparent Distress
HEENT: Moist Mucous Membranes
Respiratory: Clear to Auscultation
Cardiac: Regular Rhythm and S1/S2
GI: Soft, Nondistended, Normal Bowel Sounds and Tender (Still with some guarding. Still shows more discomfort in the right side of abdomen than left. He states the left side pain is improved.)
Neuro: AO x 3
Data Reviewed
-
Labs: Labs Reviewed by me
--- NOTE | 2024-02-21 14:20 | CM ---
Hgb. 6.9, Transfuse 1 U PRBC, follow H/H. Discharge Plan of Care: Return to [facility].
[2024-02-21] MEDS: FOLVITE 1 MG PO (22:02)
[2024-02-22] VITALS (7 sets, daily range): BP systolic 155–179; BP diastolic 93–110
[2024-02-22] MEDS: DILAUDID 1 MG IV ×5 (00:43→21:33)
[2024-02-22] MEDS: NSS 1000 IV (06:09)
[2024-02-22 07:06] LABS: Hematocrit 22.9 % (39.0-52.0); Hemoglobin 7.7 g/dL (13.0-18.0); Mean Corp Hgb Conc. 33.6 g/dL (33.0-37.0); Mean Corpuscular Hgb 25.8 pg (27.0-31.0); Mean Corpuscular Volume 76.8 fL (80.0-94.0); Mean Platelet Volume 9.8 fL (7.4-10.4); Platelet Count 170 10^3/uL (130-400); Red Blood Cell Count 2.98 10^6/uL (4.70-6.10); Red Cell Dist. Width 20.8 % (11.5-14.5); White Blood Cell Count 11.7 10^3/uL (4.8-10.8)
[2024-02-22 07:18] LABS: ALT (SGPT) 25 U/L (0-50); AST (SGOT) 76 U/L (17-59); Albumin 3.7 g/dl (3.5-5.0); Alkaline Phosphatase 151 U/L (38-126); Blood Urea Nitrogen 25 mg/dl (9-20); Calcium 9.1 mg/dl (8.4-10.2); Carbon Dioxide 21 mmol/L (22-30); Chloride 109 mmol/L (98-107); Direct Bilirubin 1.3 mg/dl (0.0-0.4); Estimated Creatinine Clearance 90 ml/min; Glucose 101 mg/dl (70-99); Potassium 4.9 mmol/L (3.5-5.1); Sodium 140 mmol/L (135-145); Total Bilirubin 2.8 mg/dl (0.2-1.3); Total Protein 8.1 g/dl (6.3-8.2); eGFR > 60.00
--- NOTE | 2024-02-22 07:59 | W.PN.HOSP.TC ---
Today's Communication/Plan
-
Will transfuse 1 more unit today
Continue IV fluids
Continue to hold diuretics but will restart losartan
Assessment / Plan
Assessment / Plan
# Acute abdominal pain
Unclear of biliary disease versus vaso-occlusive disease in the abdomen from sickle cell. suspect latter.
HIDA neg.
Currently ultrasound no evidence of cholecystitis.
Drop in H&H noted. hemolysis panel noted
Baseline hemoglobin of 7-8 hematology input appreciated goal of hemoglobin of 10.0 noted. 7.7 today after 1 unit of packed red blood cells yesterday
Hydrate patient patient adequately. Continue the pain medication. transfused 1 unit of blood. Optimize H&H. Transfuse 1 more unit today.
Advance diet.
# Acute kidney injury likely prerenal
- Improving
-Continue with IV fluids
-Hold hydrochlorothiazide, losartan
Essential hypertension
-Hold hydrochlorothiazide, losartan due to SANA
-As needed hydralazine for elevated blood pressure
Sickle cell disease
-Continue folic acid
- no splenic enlargement, it is normal in size
Chronic microcytic anemia
-Baseline hemoglobin reportedly 7.5 to 8.5
-Check iron studies, B12, folate
Mixed hyperbilirubinemia-mild AST elevation noted. No biliary ductal dilatation. Liver is normal. Follow labs after sickle cell pain crisis is over.
Marijuana use
Smoker
-Nicotine patch
Full code
DVT prophylaxis�heparin
Discussed with hematology today - tx one more unit today
Anticipated Discharge: 24 - 48 hours
Subjective/Interval History
-
Date of Service: February 22, 2024
Right upper quadrant pain remained no issues with transfusion yesterday
Objective Data
-
Labs:
Laboratory Results
02/22/24
05:49
WBC 11.7 H
Hgb 7.7 L
Hct 22.9 L
Plt Count 170
Sodium 140
Potassium 4.9
Chloride 109 H
Carbon Dioxide 21 L
BUN 25 H
Creatinine 0.9
Glucose 101 H
Calcium 9.1
Total Bilirubin 2.8 H
AST 76 H
ALT 25
Alkaline Phosphatase 151 H
Vital Signs:
Vital Signs
Temp Pulse Resp BP Pulse Ox
98.1 F 103 16 148/97 98
02/21/24 23:36 02/21/24 23:36 02/21/24 23:36 02/21/24 23:36 02/21/24 23:36
I&O
02/21/24 02/22/24 02/23/24
06:59 06:59 06:59
Intake Total 3570 / 3570 4520 / 4520
Balance 3570 / 3570 4520 / 4520
Review of Systems
-
History Source: Patient
Constitutional: Reports Weakness
EENT: Reports No Symptoms Reported
Abdomen/GI: Reports Abdominal Pain
Musculoskeletal: Reports Muscle Pain
Physical Exam
-
General: Well Developed
HEENT: Normocephalic
Respiratory: Clear to Auscultation
Cardiac: Regular Rhythm
GI: Soft, Tender (Right upper quadrant) and Organomegaly
Psych: Calm
Data Reviewed
-
Total Time Spent with Patient (in minutes): 34
Labs: Labs Reviewed by me (Hemoglobin up to 7.7 white count down to 11.7 after transfusion)
[2024-02-22] MEDS: COZAAR 100 MG PO (08:54)
[2024-02-22] MEDS: HEPARIN 5000 UNITS SC ×2 (08:55→19:59)
[2024-02-22] MEDS: THERAGRAN 1 TABLET PO (08:55)
[2024-02-22] MEDS: NICODERM TRANSDERMAL TRANSDERM (08:56)
--- NOTE | 2024-02-22 09:35 | PTCARENOTE ---
Hemoglobin at 7.7 this morning. Team ordered another unit of PRBC's ([facility] Will transfuse once product is in. Patient hemodynamically stable.
--- NOTE | 2024-02-22 11:35 | W.PN.ONC ---
Today's Communication / Plan
-
Anticipate additional transfusion today
Monitor CBC
Will see intermittently or upon clinical change
Impression
Impression
Sickle cell disease
Anemia, reported baseline hemoglobin 7-8
Right upper quadrant pain
Subjective/Objective
Subjective/Objective
No new complaints today.
Vital Signs:
Vital Signs
Temp Pulse Resp BP Pulse Ox
98.9 F 94 18 155/93 95
02/22/24 07:25 02/22/24 08:54 02/22/24 07:25 02/22/24 08:54 02/22/24 07:25
Exam unchanged
Lab Results:
Laboratory Data
WBC 11.7 10^3/uL (4.8-10.8) H 02/22/24 05:49
Hgb 7.7 g/dL (13.0-18.0) L 02/22/24 05:49
Plt Count 170 10^3/uL (130-400) 02/22/24 05:49
eGFR > 60.00 02/22/24 05:49
[2024-02-22] MEDS: NSS IV (12:58)
[2024-02-22] MEDS: DILAUDID 0.5 MG IV (13:12)
--- NOTE | 2024-02-22 13:32 | CM ---
met with patient at bedside.his hgb 7.7,for 1 unit prbc today,cont ivf,holding diuretics,has nicotine patch.Plan to return to [facility] system.
--- NOTE | 2024-02-22 18:38 | PTCARENOTE ---
Spoke with Tressa from blood bank dept, who updated tis RN that they are still waiting for PRBC's from [facility]. She will follow up and call us when it gets here.
[2024-02-22] MEDS: FOLVITE 1 MG PO (21:34)
[2024-02-23] MEDS: DILAUDID 1 MG IV ×6 (02:38→22:48)
[2024-02-23] MEDS: NSS 1000 IV ×2 (06:33→19:55)
[2024-02-23 07:36] LABS: Hematocrit 26.4 % (39.0-52.0); Hemoglobin 8.8 g/dL (13.0-18.0); Mean Corp Hgb Conc. 33.3 g/dL (33.0-37.0); Mean Corpuscular Hgb 26.2 pg (27.0-31.0); Mean Corpuscular Volume 78.6 fL (80.0-94.0); Mean Platelet Volume 10.5 fL (7.4-10.4); Platelet Count 173 10^3/uL (130-400); Red Blood Cell Count 3.36 10^6/uL (4.70-6.10); Red Cell Dist. Width 20.3 % (11.5-14.5); White Blood Cell Count 9.5 10^3/uL (4.8-10.8)
[2024-02-23 07:42] LABS: Blood Urea Nitrogen 18 mg/dl (9-20); Calcium 9.3 mg/dl (8.4-10.2); Carbon Dioxide 23 mmol/L (22-30); Chloride 109 mmol/L (98-107); Estimated Creatinine Clearance 102 ml/min; Glucose 110 mg/dl (70-99); Potassium 4.5 mmol/L (3.5-5.1); Sodium 139 mmol/L (135-145); eGFR > 60.00
[2024-02-23 07:53] VITALS: BP 160/108
--- NOTE | 2024-02-23 08:17 | W.PN.HOSP.TC ---
Today's Communication/Plan
-
Will hold off on further transfusions/continue IV fluids
Need to control blood pressure
Would continue to hold hydrochlorothiazide but restart losartan and add metoprolol/thiazide diuretic only contribute to low volume state and lower threshold for sickling
Tells me he was never treated for hypertension until he got the [facility] and was placed on losartan and hydrochlorothiazide then
Assessment / Plan
Assessment / Plan
# Acute abdominal pain
Unclear of biliary disease versus vaso-occlusive disease in the abdomen from sickle cell. suspect latter.
HIDA neg.
Currently ultrasound no evidence of cholecystitis.
Drop in H&H noted. hemolysis panel noted
Baseline hemoglobin of 7-8 hematology input appreciated goal of hemoglobin of 10.0 noted. 7.7 today after 1 unit of packed red blood cells yesterday up to 8.8 today
Hydrate patient patient adequately. Continue the pain medication. transfused 1 unit of blood. Optimize H&H. Would hold on further transfusions at this point
Advance diet.
# Acute kidney injury likely prerenal/now resolved
- Improving
-Continue with IV fluids
-Hold hydrochlorothiazide, losartan
Essential hypertension/hypertensive urgency
-Hold hydrochlorothiazide, would continue to hold given his sickle cell presentation and history
-As needed hydralazine for elevated blood pressure
-Restart losartan with resolution of SANA
-Add metoprolol 25 mg twice daily
Sickle cell disease
-Continue folic acid
- no splenic enlargement, it is normal in size
Chronic microcytic anemia
-Baseline hemoglobin reportedly 7.5 to 8.5
-Check iron studies, B12, folate
Mixed hyperbilirubinemia-mild AST elevation noted. No biliary ductal dilatation. Liver is normal. Follow labs after sickle cell pain crisis is over.
Marijuana use
Smoker
-Nicotine patch
Full code
DVT prophylaxis�heparin
Discussed with hematology today - tx one more unit today
Anticipated Discharge: 24 - 48 hours
Subjective/Interval History
-
Date of Service: February 23, 2024
Still with persisting right-sided abdominal pain and also seems to be aggravating continued hypertension
Objective Data
-
Labs:
Laboratory Results
02/23/24
06:22
WBC 9.5
Hgb 8.8 L
Hct 26.4 L
Plt Count 173
Sodium 139
Potassium 4.5
Chloride 109 H
Carbon Dioxide 23
BUN 18
Creatinine 0.8
Glucose 110 H
Calcium 9.3
Vital Signs:
Vital Signs
Temp Pulse Resp BP Pulse Ox
98.5 F 81 17 160/108 95
02/23/24 07:53 02/23/24 07:53 02/23/24 07:53 02/23/24 07:53 02/23/24 07:53
I&O
02/22/24 02/23/24 02/24/24
06:59 06:59 06:59
Intake Total 4520 / 4520 2890 / 2890
Output Total 1790 / 1790
Balance 4520 / 4520 1100 / 1100
Review of Systems
-
History Source: Patient
Constitutional: Denies Fever
Cardiac: Reports No Symptoms
Abdomen/GI: Reports Abdominal Pain (Right-sided no peritoneal signs or guarding)
Musculoskeletal: Reports Joint Pain
Physical Exam
-
General: Well Developed
HEENT: Normocephalic
Cardiac: Regular Rhythm
GI: Tender (Right-sided) and Organomegaly
Skin: Warm
Neuro: Awake, Alert and Oriented
Psych: Calm
Data Reviewed
-
Labs: Labs Reviewed by me (Hemoglobin up to 8.8/white count stable)
[2024-02-23] MEDS: NICODERM TRANSDERMAL TRANSDERM (08:54)
[2024-02-23] MEDS: HEPARIN 5000 UNITS SC ×2 (08:54→19:56)
[2024-02-23] MEDS: COZAAR 100 MG PO (08:54)
[2024-02-23] MEDS: THERAGRAN 1 TABLET PO (08:55)
[2024-02-23] MEDS: LOPRESSOR 25 MG PO ×2 (08:55→19:55)
[2024-02-23 11:07] VITALS: BP 139/92
[2024-02-23] MEDS: SENOKOT-S 1 TABLET PO (14:21)
[2024-02-23 15:18] VITALS: BP 147/88
[2024-02-23] MEDS: COLACE 100 MG PO (19:55)
[2024-02-23] MEDS: FOLVITE 1 MG PO (22:34)
[2024-02-23 23:20] VITALS: BP 158/97
[2024-02-24] MEDS: DILAUDID 1 MG IV ×2 (02:48→06:48)
[2024-02-24 07:20] VITALS: BP 150/93
[2024-02-24] MEDS: NSS 1000 IV ×2 (08:25→19:59)
[2024-02-24] MEDS: COLACE 100 MG PO (08:26)
[2024-02-24] MEDS: COZAAR 100 MG PO (08:26)
[2024-02-24] MEDS: HEPARIN 5000 UNITS SC ×2 (08:26→19:59)
[2024-02-24] MEDS: THERAGRAN 1 TABLET PO (08:27)
[2024-02-24 08:28] LABS: Hematocrit 26.1 % (39.0-52.0); Hemoglobin 8.8 g/dL (13.0-18.0)
[2024-02-24] MEDS: LOPRESSOR 25 MG PO ×2 (08:30→19:58)
[2024-02-24] MEDS: NICODERM TRANSDERMAL TRANSDERM (08:31)
[2024-02-24] MEDS: DILAUDID 0.5 MG IV ×3 (10:49→20:32)
[2024-02-24] MEDS: FLUSH (NSS) 1 FLUSH IV ×2 (10:50→12:10)
--- NOTE | 2024-02-24 11:13 | W.PN.HOSP.TC ---
Today's Communication/Plan
-
IVF
bowel regimen
monitor BP
Assessment / Plan
Assessment / Plan
# Acute abdominal pain likely 2/2 vaso-occlusive disease in the abdomen from sickle cell
HIDA neg.
Currently ultrasound no evidence of cholecystitis.
Drop in H&H noted. hemolysis panel noted
Baseline hemoglobin of 7-8 hematology input. 7.7 today after 1 unit of packed red blood cells yesterday up to 8.8 x 2 days.
Hydrate patient patient adequately. Continue the pain medication. transfused 1 unit of blood. Optimize H&H. Would hold on further transfusions at this point
Advance diet.
Monitor diet tolerance and pain
#Constipation
-start bowel regimen
-Citroma
-senna/colace.
# Acute kidney injury likely prerenal/now resolved
- Improving
-Continue with IV fluids
-Hold diuretics.
Essential hypertension/hypertensive urgency
-Hold hydrochlorothiazide, would continue to hold given his sickle cell presentation and history
-As needed hydralazine for elevated blood pressure
-Restart losartan with resolution of SANA
-Add metoprolol 25 mg twice daily
-mildly elevated due to pain too
Sickle cell disease
-Continue folic acid
- no splenic enlargement, it is normal in size
Chronic microcytic anemia
-Baseline hemoglobin reportedly 7.5 to 8.5
-low normal [id number] start supplementation
Mixed hyperbilirubinemia-mild AST elevation noted. No biliary ductal dilatation. Liver is normal. Follow labs after sickle cell pain crisis is over.
Marijuana use
Smoker
-Nicotine patch
Full code
DVT prophylaxis�heparin
Anticipated Discharge: Within 24 hours
Subjective/Interval History
-
Date of Service: February 24, 2024
Pain is starting to improve
tolerating diet
states of no bm x 5-6 days
Objective Data
-
Labs:
Laboratory Results
02/24/24
08:15
Hgb 8.8 L
Hct 26.1 L
Vital Signs:
Vital Signs
Temp Pulse Resp BP Pulse Ox
98.1 F 64 18 150/93 97
02/24/24 07:20 02/24/24 07:20 02/24/24 07:20 02/24/24 07:20 02/24/24 07:20
I&O
02/23/24 02/24/24 02/25/24
06:59 06:59 06:59
Intake Total 2890 / 2890 1920 / 1920
Output Total 1790 / 1790 500 / 500
Balance 1100 / 1100 1420 / 1420
Physical Exam
-
General: Well Developed
HEENT: Normocephalic, Atraumatic and Moist Mucous Membranes
Cardiac: Regular Rhythm and S1/S2
GI: Soft, Normal Bowel Sounds, Tender (RUQ) and Organomegaly
Skin: Warm
Neuro: Awake, Alert and Oriented
Psych: Calm
Data Reviewed
-
Total Time Spent with Patient (in minutes): 55
[2024-02-24] MEDS: CITROMA 300 ML PO (12:07)
[2024-02-24] MEDS: PERCOCET 5/325 1 TABLET PO ×2 (12:07→21:41)
[2024-02-24] MEDS: VITAMIN B-12 1000 MCG PO (12:08)
[2024-02-24] MEDS: APRESOLINE 5 MG IV (12:09)
[2024-02-24 15:30] VITALS: BP 146/88
[2024-02-24] MEDS: FLUSH (NSS) 2 FLUSH IV (16:29)
--- NOTE | 2024-02-24 17:53 | PTCARENOTE ---
Pt states percocet helpd a little bit. Pain level 9/10 and drops to a 8. He states he had a BM this am? Told him we need to see it. He was not going to drink the mag citrate but we leandra made a deal with him so he did. will cont to monitor.
[2024-02-24] MEDS: SENOKOT-S 1 TABLET PO (19:58)
[2024-02-24] MEDS: APRESOLINE 10 MG PO (19:58)
--- NOTE | 2024-02-24 21:08 | PTCARENOTE ---
Patient claimed he had 2 moderate size bowel movements today on dayshift that he flushed.
[2024-02-24] MEDS: FOLVITE 1 MG PO (22:40)
[2024-02-24 23:17] VITALS: BP 166/90
[2024-02-25] MEDS: DILAUDID 0.5 MG IV ×2 (00:33→04:51)
[2024-02-25] MEDS: PERCOCET 5/325 1 TABLET PO ×2 (03:06→08:52)
[2024-02-25 07:59] VITALS: BP 161/102
--- NOTE | 2024-02-25 08:38 | PTCARENOTE ---
Bon has been stating that he has had recent BMs' but not seen. He still is c/o pain across his abd and ask for Dilaudid every 4hrs. Pt is eating. Will cont to monitor.
[2024-02-25] MEDS: HEPARIN 5000 UNITS SC (08:40)
[2024-02-25] MEDS: SENOKOT-S 1 TABLET PO (08:42)
[2024-02-25] MEDS: NICODERM TRANSDERMAL TRANSDERM (08:42)
[2024-02-25] MEDS: VITAMIN B-12 1000 MCG PO (08:42)
[2024-02-25] MEDS: COZAAR 100 MG PO (08:42)
[2024-02-25] MEDS: THERAGRAN 1 TABLET PO (08:42)
[2024-02-25] MEDS: LOPRESSOR 25 MG PO (08:42)
[2024-02-25] MEDS: APRESOLINE 10 MG PO (08:43)
[2024-02-25 09:51] LABS: % Basophils 0.9 % (0-2); % Eosinophils 4.8 % (0-6); % Immature Granulocytes 0.3 % (0-0.5); % Lymphocytes 37.2 % (20.5-51.1); % Monocytes 12.2 % (1.7-9.3); % Neutrophils 44.6 % (42.2-75.2); Absolute Basophils 0.1 10^3/uL (0-0.2); Absolute Eosinophils 0.4 10^3/uL (0-0.7); Absolute Lymphocytes 3.2 10^3/uL (1.2-3.4); Absolute Monocytes 1.1 10^3/uL (0.1-0.6); Absolute Neutrophils 3.9 10^3/uL (1.4-6.5); Hematocrit 23.6 % (39.0-52.0); Mean Corp Hgb Conc. 33.9 g/dL (33.0-37.0); Mean Corpuscular Hgb 26.7 pg (27.0-31.0); Mean Corpuscular Volume 78.7 fL (80.0-94.0); Mean Platelet Volume 9.6 fL (7.4-10.4); Nucleated Red Blood Cells % 2.4 % (-); Platelet Count 125 10^3/uL (130-400); Red Cell Dist. Width 20.6 % (11.5-14.5); White Blood Cell Count 8.7 10^3/uL (4.8-10.8)
--- NOTE | 2024-02-25 10:12 | W.PN.HOSP.TC ---
Today's Communication/Plan
-
dc
cbc next week
bp meds adjustment
Assessment / Plan
Assessment / Plan
# Acute abdominal pain likely 2/2 vaso-occlusive disease in the abdomen from sickle cell
HIDA neg.
Currently ultrasound no evidence of cholecystitis.
Drop in H&H noted. hemolysis panel noted
Baseline hemoglobin of 7-8 hematology input. Hgb at baseline 8. s/p 3u of PRBC so far.
Hydrate patient patient adequately. Continue the pain medication. Optimize H&H. Would hold on further transfusions at this point
Advance diet and tolerating without difficulty
Monitor diet tolerance and pain
#Constipation
-start bowel regimen
-Citroma
-senna/colace.
-had BMs on 02/23
#Thrombocytopenia likely 2/2 sickle cell disease and dilutional componenet as HCT/HGB mild downtrend noted
-No prior hx of low platelet
-repeat cbc next week.
# Acute kidney injury likely prerenal/now resolved
- resolved
-DC IV fluids
-DC diuretics.
Essential hypertension/hypertensive urgency
-Hold hydrochlorothiazide, would continue to hold given his sickle cell presentation and history
-As needed hydralazine for elevated blood pressure
-Restart losartan with resolution of SANA
-Add metoprolol 25 mg twice daily and added hydralazine
-mildly elevated due to pain too
Sickle cell disease
-Continue folic acid
- no splenic enlargement, it is normal in size
Chronic microcytic anemia
-Baseline hemoglobin reportedly 7.5 to 8.5
-low normal [id number] start supplementation
Mixed hyperbilirubinemia-mild AST elevation noted. No biliary ductal dilatation. Liver is normal. Follow labs after sickle cell pain crisis is over.
Marijuana use
Smoker
-Nicotine patch
Full code
DVT prophylaxis�heparin
More than 30 minutes spent in discharge including
Final examination of the patient
Summarizing hospital stay
Instructions for continuing care to all relevant caregivers
Preparation of discharge records, prescriptions, and referral forms
Total time spent (in minutes): 45
Anticipated Discharge: Today
Subjective/Interval History
-
Date of Service: February 25, 2024
States with intermittent abd pain and majority of times asking for IV dilaudid
states had bm yesterday
tolerating diet
afebrile
no nausea or vomiting
Objective Data
-
Labs:
Laboratory Results
02/25/24
09:12
WBC 8.7
Hgb 8.0 L
Hct 23.6 L
Plt Count 125 L D
Vital Signs:
Vital Signs
Temp Pulse Resp BP Pulse Ox
98.0 F 66 14 161/102 96
02/25/24 07:59 02/25/24 07:59 02/25/24 07:59 02/25/24 07:59 02/25/24 07:59
I&O
02/24/24 02/25/24 02/26/24
06:59 06:59 06:59
Intake Total 1920 / 1920 4080 / 4080
Output Total 500 / 500 1490 / 1490
Balance 1420 / 1420 2590 / 2590
Physical Exam
-
General: Well Developed
HEENT: Normocephalic, Atraumatic and Moist Mucous Membranes
Cardiac: Regular Rhythm and S1/S2
GI: Soft, Nondistended, Normal Bowel Sounds and Tender (Mild TTP Ruq)
Skin: Warm
Neuro: Awake, Alert and Oriented
Psych: Calm
--- NOTE | 2024-02-25 11:02 | CM ---
Patient has been medically cleared for discharge back to [facility]. [facility] facility will transport.
[2024-02-25 11:49] VITALS: BP 155/98
[2024-02-25 11:57] VITALS: BP 155/98
--- NOTE | 2024-02-25 12:02 | W.DCSUMMARY ---
Discharge Summary
Discharge Data
Date of Admission: 02/20/24
Date of Discharge: 02/25/24
-
Pending Results: No
Hospital Course
53-year-old male past medical history of sickle cell, hypertension, chronic microcytic anemia, marijuana use who is presenting with abdominal pain. Patient Abdominal ultrasound is negative for acute pathology. HIDA scan was negative for
cholecystitis. Since abdominal pain was secondary to vaso-occlusive disease in the setting of sickle cell. Patient was evaluated by general surgery and oncology. Patient was taken off HCTZ. Patient was started on IV fluids. Patient required 2
units of PRBC. Patient was at baseline hemoglobin. Patient with improvement and mild abdominal pain. Patient also with severe constipation which resolved with aggressive bowel regimen. Patient also had SANA which resolved with IV fluid
resuscitation and discontinuation of hydrochlorothiazide. Losartan was restarted. Hydralazine was started and dose was uptitrated. Metoprolol was also added however heart rate in low 60s and thus further dose was not adjusted. Patient was
tolerating diet and will be discharged back to [facility] With outpatient repeat blood work.
Discharge Plan
-
Patient Disposition: Custodial
Discharge Diagnosis/Procedures: Acute abdominal pain likely 2/2 vaso-occlusive disease in the abdomen from sickle cell
Constipation
Acute kidney injury
Hypertension emergency
Sickle cell disease
Blood transfusion
Condition: Fair
Diet: Regular
Activity: As tolerated
Blood Work: cbc in 3-4 days
Referrals:
[facility] [Family Provider] -
Prescriptions:
New
hydralazine 10 mg Tablet
15 mg PO BID 30 Days Qty: 90 0RF
cyanocobalamin (vitamin B-12) 1,000 mcg Tablet
1,000 mcg PO DAILY 30 Days Qty: 30 0RF
oxycodone-acetaminophen 5-325 mg Tablet
1 tab PO BIDPRN PRN (Reason: severe pain) 7 Days Qty: 14 0RF
metoprolol tartrate 25 mg Tablet
25 mg PO BID 30 Days Qty: 60 0RF
Continued
therapeutic multivitamin Tablet
1 tab PO DAILY
folic acid 1 mg tablet
1 mg PO HS
losartan 100 mg Tablet
100 mg PO HS
Discontinued
hydrochlorothiazide 25 mg Tablet
25 mg PO DAILY
Discharge Orders:
Discharge Patient (As Directed); Ordered 02/25/24
Ordered By: Sixto Stanton
Discharge Date and Time
Discharge Date/Time: 02/25/24 12:35
Print Language: PORTUGUESE
== END 2024-02-25 12:35 | DRG 444 ==
LOC: 2 NORTH 08:38
PROVIDERS: Internal Medicine; Physician Assistant; ADMITTING PHYSICIAN Hospitalist; ATTENDING PHYSICIAN Hospitalist; CONSULT PHYSICIAN Internal Medicine Hematology & Oncology; EMERGENCY PHYSICIAN Emergency Medicine; OTHER PHYSICIAN Surgery
PROC: 30233N1 Transfusion of Nonautologous Red Blood Cells into Peripheral Vein, Percutaneous Approach (ICD-10-PCS; 2024-02-21)
DX: K80.20 Calculus of gallbladder without cholecystitis without obstruction (principal); D57.00 Hb-SS disease with crisis, unspecified; N17.9 Acute kidney failure, unspecified; I16.1 Hypertensive emergency; I10 Essential (primary) hypertension; N28.1 Cyst of kidney, acquired; F17.210 Nicotine dependence, cigarettes, uncomplicated; K59.00 Constipation, unspecified; D69.6 Thrombocytopenia, unspecified
CPT/HCPCS: 76700; 78226; 80048; 80053; 81003; 81015; 82248; 82607; 82728; 82746; 83540; 83550; 83615; 83690; 85014; 85018; 85025; 85027; 85045; 86850; 86860; 86870; 86880; 86900; 86901; 86902; 86920; 86922; 87070; 87086; 96361; 96374; 96375; 99285; A9537; P9016

== ENCOUNTER 2024-03-19 10:36 | Emergency (ER) | payer OTHER, SELFPAY ==
[2024-03-19] VITALS (13 sets, daily range): BP systolic 131–169; BP diastolic 77–92
--- NOTE | 2024-03-19 11:05 | ED.GENMED ---
History of Present Illness
General
Chief Complaint: Abnormal Lab Value
Source: patient
Exam Limitations: none
Time Seen by Provider: 03/19/24 10:47
Nursing documentation reviewed up to this point in time: agreed with
History of Present Illness
History of Present Illness:
53 yr. old male from [facility] presents to the ER for evaluation. Patient has a history of sickle cell disease, hypertension chronic microcytic anemia and was sent to the ER for low hemoglobin. Records from senior care
report patient hemoglobin 6.5 and trending down. Patient however is asymptomatic and reports he feels great and has no complaints.
Patient was recently here 1 month ago for abdominal pain and abdominal pain was felt to be due to secondary vaso-occlusive disease in the setting of sickle cell. At that time he was evaluated by oncology and surgery and taken of HCTZ given fluids.
He did require that time 2 units of packed red blood cells. He did have acute kidney injury which did resolve with IV fluids during that admission.
Review of Systems
Review of Systems
Allergies reviewed?: Yes
All Other Systems: ROS reviewed and negative except as documented in HPI and ROS
Constitutional: Reports no symptoms; Denies fever, fatigue or chills
Respiratory: Reports no symptoms
Cardiac: Reports no symptoms
ABD/GI: Reports no symptoms
: Reports no symptoms
Musculoskeletal: Reports no symptoms
Skin: Reports no symptoms
Neurological: Reports no symptoms
Psychiatric: Reports no symptoms
Phy Exam
General Physical Exam
General Presentation: no apparent distress
General age: appears stated age
General Skin: warm and dry
General Habitus: normal
General Mental: alert
General Hydration: appears well hydrated
Cardiovascular Exam
Cardiovascular Exam: regular rate/rhythm, no murmur and normal peripheral pulses
Pulmonary Exam
Pulmonary Exam: lungs clear and no respiratory distress
Neurological Exam
Neurological Exam: alert and oriented x3
Musculoskeletal Exam
Musculoskeletal Exam: full ROM
Skin Exam
Skin Exam: normal color and warm/dry
Psychiatric Exam
Psychiatric Exam: normal mood/affect
Course
Orders/Labs/Results
Orders:
Orders
03/19/24 10:50
ROBERTO Polyspecific GEL Urgent
BBK Wristband Number:
Type+Screen Urgent
Complete Blood Count/With Diff Urgent
Comprehensive Metabolic Panel Urgent
Manual Differential Urgent
03/19/24 12:20
* Blood Bank Products Urgent
's Orders: REchante/Noh
Blood Bank Products: *Packed RBC Leuko(PRBC's)
Quantity: 2
Transfuse Today: Yes
Reason: Anemia
Comment: consent obtained
Abnormal Lab Results
03/19/24
10:50
RBC 2.45 L 10^6/uL
(4.70-6.10)
Hgb 6.3 L* g/dL
(13.0-18.0)
Hct 19.3 L* %
(39.0-52.0)
MCV 78.8 L fL
(80.0-94.0)
MCH 25.7 L pg
(27.0-31.0)
MCHC 32.6 L g/dL
(33.0-37.0)
RDW 20.4 H %
(11.5-14.5)
MPV 10.8 H fL
(7.4-10.4)
Eosinophils (Manual) 7 H %
(0-6)
Chloride 113 H mmol/L
(98-107)
Total Bilirubin 2.5 H mg/dl
(0.2-1.3)
AST 78 H U/L
(17-59)
Alkaline Phosphatase 207 H U/L
(38-126)
Antibody Screen Positive A
(Negative)
Direct Antiglob Test Positive A
(Negative)
ROBERTO, IgG Specific 1+ H
(Negative)
Crossmatch IS Only See Detail
MTS Gel Crossmatch See Detail
03/19/24 10:50
03/19/24 10:50
Vital Signs
Initial and Last Documented VS:
Initial Vital Signs
Temp Pulse Resp BP Pulse Ox
98.1 F 78 18 148/89 98
03/19/24 10:38 03/19/24 10:38 03/19/24 10:38 03/19/24 10:38 03/19/24 10:38
Last Documented Vital Signs
Temp Pulse Resp BP Pulse Ox
98.4 F 76 18 156/92 99
03/20/24 02:59 03/20/24 02:59 03/20/24 02:59 03/20/24 02:59 03/20/24 02:59
MDM/Problems Addressed
MDM/Problems Addressed:
Patient is a 53-year-old male sent from [facility] with low hemoglobin trending down. Patient has a history of sickle cell disease and microcytic anemia. Patient was recently here February 19 discharged February 24 with abdominal
pain from vaso-occlusive disease in the setting of sickle cell. He was transfused 2 units of packed red blood cells at that time(his hemoglobin was 6.4.)
Patient presents asymptomatic today with no complaints. His hemoglobin today is 6.3 his discharge hemoglobin is 8.0 we will transfuse 2 units and plan to send back to [facility] after transfusion is completed.
1800: Still waiting for patient's blood to arrive as he has antibodies and we are waiting it from it to arrive from the [place]. Patient has no complaints . He is in no distress. he has been eating and drinking here. He is made aware of the
delay as well as watchguard.
1809: Case transferred to Inderjit Lanza PAC at this time
*Critical Care Note
Total Time (30-74mins, 75-104mins- exclusive of procedures): Not Applicable
ED Attending Note
-
Portions of this chart may have been created with voice recognition software.� Occasional wrong word or��sound alike� substitutions may have occurred due to the inherent limitations of voice recognition software.
Discharge Plan
Departure
Patient Disposition: Snf
Patient with high blood pressure during this ER visit?: Yes
Condition: Fair
Covid-19: Not Applicable
Discharge Problem:
Anemia
Instructions: BLOOD PRESSURE
Prescriptions:
No Action
folic acid 1 mg tablet
1 mg PO HS
losartan 100 mg Tablet
100 mg PO HS
cyanocobalamin (vitamin B-12) 1,000 mcg Tablet
1,000 mcg PO DAILY 30 Days Qty: 30 0RF
metoprolol tartrate 25 mg Tablet
25 mg PO BID 30 Days Qty: 60 0RF
multivitamin [TAB A CHICO] Tablet
1 tab PO HS
hydralazine 25 mg Tablet
25 mg PO BID
Referrals:
[place] [facility] [Family Provider] -
Activity Restrictions/Additional Instructions:
Patient's hemoglobin was found to be 6.3 here in the ER he had no complaints. He was transfused 2 units of packed red blood cells. To be evaluated by primary care physician in the next several days.
Interventions
Interventions:
*Risk Screen - Suicide Last Done: 03/19/24 10:38
*General Assessment Last Done: 03/19/24 10:38
*Neglect/Abuse Screening Last Done: 03/19/24 10:38
*Nursing Disposition Last Done: 03/20/24 03:19
Discharge Date and Time
Discharge Date/Time: 03/20/24 03:21
Print Language: LATVIAN
[2024-03-19 11:06] LABS: Mean Corp Hgb Conc. 32.6 g/dL (33.0-37.0); Mean Corpuscular Hgb 25.7 pg (27.0-31.0); Mean Corpuscular Volume 78.8 fL (80.0-94.0); Mean Platelet Volume 10.8 fL (7.4-10.4); Platelet Count 132 10^3/uL (130-400); Red Blood Cell Count 2.45 10^6/uL (4.70-6.10); Red Cell Dist. Width 20.4 % (11.5-14.5); White Blood Cell Count 9.4 10^3/uL (4.8-10.8)
[2024-03-19 11:16] LABS: Hemoglobin 6.3 g/dL (13.0-18.0)
[2024-03-19 11:17] LABS: Hematocrit 19.3 % (39.0-52.0)
[2024-03-19 11:18] LABS: ALT (SGPT) 31 U/L (0-50); AST (SGOT) 78 U/L (17-59); Albumin 3.6 g/dl (3.5-5.0); Alkaline Phosphatase 207 U/L (38-126); Blood Urea Nitrogen 14 mg/dl (9-20); Calcium 8.8 mg/dl (8.4-10.2); Carbon Dioxide 22 mmol/L (22-30); Chloride 113 mmol/L (98-107); Glucose 95 mg/dl (70-99); Potassium 4.2 mmol/L (3.5-5.1); Sodium 140 mmol/L (135-145); Total Bilirubin 2.5 mg/dl (0.2-1.3); eGFR > 60.00
[2024-03-19 12:24] LABS: Absolute Neutrophils -Man Diff 4.4 10^3/uL (1.4-6.5); Anisocytosis 1+; Band Neutrophils 2 % (0-3); Eosinophils 7 % (0-6); Hypochromasia 1+; Lymphocytes 45 % (20-51); Monocytes 7 % (2-9); Normal RBC Morphology No; Nucleated Red Blood Cells 41 (-); Ovalocytes 1+; Platelets Checked Yes; Polychromasia 2+; Schistocytes 1+; Segmented Neutrophils 45 % (42-75); Target Cells 2+
[2024-03-19 12:25] LABS: Acanthocytes 1+; Sickled Red Blood Cells 1+; Total Cells Counted 100
[2024-03-20 01:10] VITALS: BP 147/83
[2024-03-20 01:34] VITALS: BP 137/86
[2024-03-20 01:59] VITALS: BP 149/91
[2024-03-20 02:59] VITALS: BP 156/92
== END 2024-03-20 03:21 ==
LOC: EMR 10:36
PROVIDERS: EMERGENCY PHYSICIAN Emergency Medicine
DX: D50.8 Other iron deficiency anemias (principal); I10 Essential (primary) hypertension; D57.1 Sickle-cell disease without crisis; F17.290 Nicotine dependence, other tobacco product, uncomplicated
CPT/HCPCS: 99285; 36430; 80053; 85025; 86850; 86860; 86870; 86880; 86900; 86901; 86920; 86922; P9016

== ENCOUNTER 2024-04-10 06:43 | Emergency (ER) | payer OTHER, SELFPAY ==
[2024-04-10] VITALS (19 sets, daily range): BP systolic 139–172; BP diastolic 10–110; BMI 24.5
--- NOTE | 2024-04-10 06:45 | ED.GENMED ---
History of Present Illness
General
Chief Complaint: Abnormal Lab Value
Time Seen by Provider: 04/10/24 06:44
History of Present Illness
History of Present Illness:
HPI: The patient states that he was sent here due to low hemoglobin. He comes in from [facility] and thinks that the last time that his hemoglobin was drawn was about a week ago. However he has no symptoms. He has no
shortness of breath, he has no dizziness. He has a history of sickle cell disease. 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 He received blood transfusion approximately 7 weeks ago here. He denies sickle cell crisis pain.
EXAM:
GENERAL: Well appearing in no distress
HEENT: Moist oral mucosa
CARDIOVASCULAR: No murmurs, normal heart rate, regular rhythm, No chest wall tenderness
PULMONARY: No respiratory distress, breath sounds are clear and equal
ABDOMEN: Soft with no peritoneal signs, no tenderness
NEUROLOGIC: Excellent strength all extremities, no coordination deficits
PSYCHIATRIC: Appropriate mental status, normal insight and judgement
EXTREMITIES: Nontender, no edema, moves all extremities equally
SKIN: No rash, no lesions
TIME OF INITIAL ENCOUNTER: 7 AM
NUMBER AND COMPLEXITY OF PROBLEMS ADDRESSED AT THE ENCOUNTER
� Chronic conditions affecting care: Sickle cell disease, high blood pressure
� Acute Exacerbation and/or Progression of Chronic Illness: This is an acute problem
� Differential Diagnosis includes: Chronic sickle cell anemia, GI bleed less likely as reports no symptoms
AMOUNT AND/OR COMPLEXITY OF DATA TO BE REVIEWED AND ANALYZED
� I performed an independent evaluation of and my interpretation is:
EKG:
CT:
X-rays:
Laboratory Studies: Hemoglobin 5.8, white count normal, creatinine 0.8, total bili 2.6 which is chronic
Other:
� Review of other/old records: I reviewed records. The patient had a hemoglobin of 6.5 3 weeks ago but was asymptomatic. Approximately 7 weeks ago the patient was given blood and had SANA. The hemoglobin on 03/19/2024 was 6.3.
Hemoglobin on January 18 was 6.6, hemoglobin on February 16 was 8.7, hemoglobin March 02 was 7.7, hemoglobin on March 19 was 6.5, and hemoglobin documented today April 10 is 5.9.
� Clinical information was obtained by an independent historian: I spoke to ship officer at bedside
� Prescriptions/Medications Considered but not given:
� Further testing considered but not performed:
RISK OF COMPLICATIONS AND/OR MORBIDITY OR MORTALITY OF PATIENT MANAGEMENT
� Social determinants of health affecting care: Currently staying at [facility]
� Discussion with other providers: Call placed to Dr. Mcdonald at [place] however the nurse down there indicates that he retired a year ago. He was to follow-up with a different water softener service supervisor but apparently never showed up to his
appointments�10 is not aware that he was in [facility]. I also discussed case with Dr. Khalil.
� Escalation of care including admission/observation vs risk of discharge considered: The patient presents due to concerns for anemia but is asymptomatic. The patient's hemoglobin today is 5.8. Although he is asymptomatic we
will transfuse. On reassessment at 12:45 PM, patient continuing blood transfusion which should be done around 3 PM and then will discharge.
Phy Exam
Physical Exam
Physical Exam:
See HPI
Course
Orders/Labs/Results
Orders:
Orders
04/10/24 07:04
CBC/With Reticulocyte Count Urgent
Comprehensive Metabolic Panel Urgent
Manual Differential Urgent
04/10/24 07:20
ROBERTO Polyspecific GEL Urgent
BBK Wristband Number:
Type+Screen Urgent
BBK Wristband Number:
04/10/24 07:50
* Blood Bank Products Urgent
Blood Bank Products: *Packed RBC Leuko(PRBC's)
Quantity: 2
Transfuse Today: Yes
Reason: Anemia
Abnormal Lab Results
04/10/24 04/10/24
07:04 07:20
RBC 2.30 L 10^6/uL
(4.70-6.10)
Hgb 5.8 L* g/dL
(13.0-18.0)
Hct 17.2 L* %
(39.0-52.0)
MCV 74.8 L fL
(80.0-94.0)
MCH 25.2 L pg
(27.0-31.0)
RDW 21.9 H %
(11.5-14.5)
MPV 11.0 H fL
(7.4-10.4)
Retic Count 8.5 H %
(0.4-2.8)
Chloride 115 H mmol/L
(98-107)
Glucose 110 H mg/dl
(70-99)
Total Bilirubin 2.6 H mg/dl
(0.2-1.3)
AST 78 H U/L
(17-59)
Alkaline Phosphatase 200 H U/L
(38-126)
Antibody Screen Positive A
(Negative)
Direct Antiglob Test Positive A
(Negative)
ROBERTO, IgG Specific 1+ H
(Negative)
Crossmatch IS Only See Detail
MTS Gel Crossmatch See Detail
04/10/24 07:04
04/10/24 07:04
Vital Signs
Initial and Last Documented VS:
Initial Vital Signs
BP
150/94
04/10/24 06:51
Last Documented Vital Signs
Temp Pulse Resp BP Pulse Ox
98.0 F 69 16 148/96 99
04/10/24 11:04 04/10/24 11:04 04/10/24 11:04 04/10/24 11:04 04/10/24 11:04
*Critical Care Note
Total Time (30-74mins, 75-104mins- exclusive of procedures): Not Applicable
ED Attending Note
-
Portions of this chart may have been created with voice recognition software.� Occasional wrong word or��sound alike� substitutions may have occurred due to the inherent limitations of voice recognition software.
Discharge Plan
Departure
Patient Disposition: Home (Routine Discharge)
Date of Disposition: 04/10/24
Time of Disposition: 09:53
Patient with high blood pressure during this ER visit?: Yes
Discharge Problem:
Anemia
Prescriptions:
No Action
folic acid 1 mg tablet
1 mg PO HS
losartan 100 mg Tablet
100 mg PO HS
cyanocobalamin (vitamin B-12) 1,000 mcg Tablet
1,000 mcg PO DAILY 30 Days Qty: 30 0RF
metoprolol tartrate 25 mg Tablet
25 mg PO BID 30 Days Qty: 60 0RF
multivitamin [TAB A CHICO] Tablet
1 tab PO HS
hydralazine 25 mg Tablet
25 mg PO BID
Referrals:
[place] [Family Provider] -
Activity Restrictions/Additional Instructions:
We have given 2 units of blood. Hemoglobin here is 5.8. I tried calling Dr. Mcdonald at 10 however he apparently retired. I also discussed with Dr. Khalil here (water softener service supervisor at [place]). He recommends continued follow-up with lab work at the
[facility].
Interventions
Interventions:
*Risk Screen - Suicide Last Done: 04/10/24 06:52
*General Assessment Last Done: 04/10/24 06:52
*Neglect/Abuse Screening Last Done: 04/10/24 06:52
ED- Fall Risk Assessment Last Done: 04/10/24 06:52
*ED COVID-19 Vaccine History Last Done: 04/10/24 06:52
Discharge Date and Time
Print Language: ISRAELI
[2024-04-10 07:29] LABS: ALT (SGPT) 26 U/L (0-50); AST (SGOT) 78 U/L (17-59); Albumin 3.5 g/dl (3.5-5.0); Alkaline Phosphatase 200 U/L (38-126); Blood Urea Nitrogen 14 mg/dl (9-20); Carbon Dioxide 22 mmol/L (22-30); Chloride 115 mmol/L (98-107); Estimated Creatinine Clearance 105 ml/min; Glucose 110 mg/dl (70-99); Potassium 4.3 mmol/L (3.5-5.1); Sodium 142 mmol/L (135-145); Total Bilirubin 2.6 mg/dl (0.2-1.3); Total Protein 7.4 g/dl (6.3-8.2); eGFR > 60.00
[2024-04-10 07:41] LABS: Hematocrit 17.2 % (39.0-52.0); Hemoglobin 5.8 g/dL (13.0-18.0); Mean Corp Hgb Conc. 33.7 g/dL (33.0-37.0); Mean Corpuscular Hgb 25.2 pg (27.0-31.0); Mean Corpuscular Volume 74.8 fL (80.0-94.0); Red Cell Dist. Width 21.9 % (11.5-14.5); White Blood Cell Count 9.1 10^3/uL (4.8-10.8)
[2024-04-10 07:42] LABS: Calcium 8.6 mg/dl (8.4-10.2)
[2024-04-10 09:48] LABS: Platelet Count 133 10^3/uL (130-400)
[2024-04-10 09:49] LABS: Segmented Neutrophils 50 % (42-75)
[2024-04-10 09:50] LABS: Absolute Neutrophils -Man Diff 4.5 10^3/uL (1.4-6.5); Band Neutrophils 0 % (0-3); Eosinophils 3 % (0-6); Lymphocytes 43 % (20-51); Monocytes 3 % (2-9); Normal RBC Morphology No; Nucleated Red Blood Cells 36 (-); Platelets Checked YES
[2024-04-10 09:54] LABS: Tear Drop Red Blood Cells FEW
[2024-04-10 09:55] LABS: Ovalocytes FEW; Total Cells Counted 100
[2024-04-10 09:56] LABS: Polychromasia Slight
[2024-04-10 09:57] LABS: Reticulocyte Count 8.5 % (0.4-2.8)
[2024-04-10] MEDS: LOPRESSOR 25 MG PO (14:27)
[2024-04-10] MEDS: COZAAR 100 MG PO (14:28)
== END 2024-04-10 14:51 | disposition home or self-care (01) ==
LOC: EMR 06:43
PROVIDERS: EMERGENCY PHYSICIAN Emergency Medicine
DX: D64.9 Anemia, unspecified (principal); R03.0 Elevated blood-pressure reading, without diagnosis of hypertension; D57.1 Sickle-cell disease without crisis
CPT/HCPCS: 99285; 36430; 80053; 85025; 85045; 86850; 86860; 86870; 86880; 86900; 86901; 86920; 86922; P9016

== ENCOUNTER 2024-05-08 10:36 | Emergency (ER) | payer OTHER, SELFPAY ==
[2024-05-08] VITALS (19 sets, daily range): BP systolic 137–161; BP diastolic 88–101; BMI 24.4
[2024-05-08 12:52] LABS: % Eosinophils 3.7 % (0-6); % Immature Granulocytes 0.6 % (0-0.5); % Lymphocytes 31.5 % (20.5-51.1); % Monocytes 15.7 % (1.7-9.3); % Neutrophils 47.5 % (42.2-75.2); Absolute Basophils 0.1 10^3/uL (0-0.2); Absolute Eosinophils 0.3 10^3/uL (0-0.7); Absolute Immature Granulocytes 0.1 10^3/uL (0-0.05); Absolute Lymphocytes 2.5 10^3/uL (1.2-3.4); Absolute Monocytes 1.3 10^3/uL (0.1-0.6); Absolute Neutrophils 3.8 10^3/uL (1.4-6.5); Hematocrit 19.9 % (39.0-52.0); Hemoglobin 6.5 g/dL (13.0-18.0); INR 1.17; Mean Corp Hgb Conc. 32.7 g/dL (33.0-37.0); Mean Corpuscular Hgb 24.5 pg (27.0-31.0); Mean Corpuscular Volume 75.1 fL (80.0-94.0); Mean Platelet Volume 9.6 fL (7.4-10.4); Nucleated Red Blood Cells % 13.8 % (-); Platelet Count 139 10^3/uL (130-400); Red Blood Cell Count 2.65 10^6/uL (4.70-6.10); Red Cell Dist. Width 21.9 % (11.5-14.5)
--- NOTE | 2024-05-08 12:59 | ED.GENMED ---
History of Present Illness
<Hilton Patel PA-C - Last Filed: 05/08/24 15:30>
General
Chief Complaint: Abnormal Lab Value
Source: patient and records
Time Seen by Provider: 05/08/24 10:50
History of Present Illness
History of Present Illness:
53-year-old male with past medical history of sickle cell anemia and hypertension presenting to the emergency department from [facility] after patient had a hemoglobin of 6.5. He reports a transfusion done about 6 weeks ago
when he had a hemoglobin of less than 6. Patient is without any specific concerns at this time. Denies any melena or hematochezia. Denies any pain crisis.
Past History
<Hilton Patel PA-C - Last Filed: 05/08/24 15:30>
Past History
ED Past Medical History: HTN and Other (Sickle cell anemia)
ED Past Surgical History: None
Social History
Tobacco: Smoker
Alcohol: None
Drug: None
Personal: Single
Living: half-way
Review of Systems
<Hilton Patel PA-C - Last Filed: 05/08/24 15:30>
Review of Systems
All Other Systems: ROS reviewed and negative except as documented in HPI and ROS
Phy Exam
<Hilton Patel PA-C - Last Filed: 05/08/24 15:30>
Physical Exam
Physical Exam:
GENERAL: Alert , in no apparent distress
EYE: conjunctiva clear
NECK: Supple
ENT: o/p clr, mmm.
CARDIAC: Regular rate and rhythm
LUNGS: Clear breath sounds bilaterally, no acute respiratory distress, no wheezes/rales/rhonchi
NEUROLOGICAL: Alert and oriented
SKIN: Warm and dry, skin intact.
MUSCULOSKELETAL: well perfused.
PSYCH: Normal and appropriate interaction.
Scores
<Hilton Patel PA-C - Last Filed: 05/08/24 15:30>
Heart Failure Risk
Heart Failure Risk Score: Not Applicable
Heart Score for Chest Pain Patients
STEMI patient?: Not applicable
Withdrawal Assessment of Alcohol
Withdrawal Assessment Completed?: Not applicable
Course
<Hilton Patel PA-C - Last Filed: 05/08/24 15:30>
Orders/Labs/Results
Orders:
Orders
05/08/24 11:29
* Blood Bank Products Urgent
Blood Bank Products: *Packed RBC Leuko(PRBC's)
Quantity: 1
Transfuse Today: Yes
Reason: Anemia
05/08/24 11:59
Complete Blood Count/With Diff Urgent
PTT Urgent
Prothrombin Time Urgent
05/08/24 13:14
Type+Screen Urgent
BBK Wristband Number:
Basic Metabolic Panel Urgent
Abnormal Lab Results
05/08/24 05/08/24
11:59 13:14
RBC 2.65 L 10^6/uL
(4.70-6.10)
Hgb 6.5 L* g/dL
(13.0-18.0)
Hct 19.9 L* %
(39.0-52.0)
MCV 75.1 L fL
(80.0-94.0)
MCH 24.5 L pg
(27.0-31.0)
MCHC 32.7 L g/dL
(33.0-37.0)
RDW 21.9 H %
(11.5-14.5)
Abs Immat Gran (auto) 0.1 H 10^3/uL
(0-0.05)
Absolute Monos (auto) 1.3 H 10^3/uL
(0.1-0.6)
Immature Gran % 0.6 H %
(0-0.5)
Monocytes % 15.7 H %
(1.7-9.3)
PT 15.0 H Sec
(11.4-14.6)
APTT 75.3 H Sec
(23.4-35.0)
Chloride 113 H mmol/L
(98-107)
Glucose 104 H mg/dl
(70-99)
Crossmatch IS Only See Detail
MTS Gel Crossmatch See Detail
05/08/24 11:59
05/08/24 13:14
Vital Signs
Initial and Last Documented VS:
Initial Vital Signs
Temp Pulse Resp BP Pulse Ox
98.1 F 71 16 145/88 99
05/08/24 10:42 05/08/24 10:42 05/08/24 10:42 05/08/24 10:42 05/08/24 10:42
Last Documented Vital Signs
Temp Pulse Resp BP Pulse Ox
98.6 F 76 19 159/89 100
05/08/24 22:35 05/08/24 22:35 05/08/24 22:35 05/08/24 22:35 05/08/24 22:35
<Loc Solomon PA-C - Last Filed: 05/08/24 22:44>
Orders/Labs/Results
Orders:
Orders
05/08/24 11:29
* Blood Bank Products Urgent
Blood Bank Products: *Packed RBC Leuko(PRBC's)
Quantity: 1
Transfuse Today: Yes
Reason: Anemia
05/08/24 11:59
Complete Blood Count/With Diff Urgent
PTT Urgent
Prothrombin Time Urgent
05/08/24 13:14
Type+Screen Urgent
BBK Wristband Number:
Basic Metabolic Panel Urgent
Abnormal Lab Results
05/08/24 05/08/24
11:59 13:14
RBC 2.65 L 10^6/uL
(4.70-6.10)
Hgb 6.5 L* g/dL
(13.0-18.0)
Hct 19.9 L* %
(39.0-52.0)
MCV 75.1 L fL
(80.0-94.0)
MCH 24.5 L pg
(27.0-31.0)
MCHC 32.7 L g/dL
(33.0-37.0)
RDW 21.9 H %
(11.5-14.5)
Abs Immat Gran (auto) 0.1 H 10^3/uL
(0-0.05)
Absolute Monos (auto) 1.3 H 10^3/uL
(0.1-0.6)
Immature Gran % 0.6 H %
(0-0.5)
Monocytes % 15.7 H %
(1.7-9.3)
PT 15.0 H Sec
(11.4-14.6)
APTT 75.3 H Sec
(23.4-35.0)
Chloride 113 H mmol/L
(98-107)
Glucose 104 H mg/dl
(70-99)
Crossmatch IS Only See Detail
MTS Gel Crossmatch See Detail
05/08/24 11:59
05/08/24 13:14
Vital Signs
Initial and Last Documented VS:
Initial Vital Signs
Temp Pulse Resp BP Pulse Ox
98.1 F 71 16 145/88 99
05/08/24 10:42 05/08/24 10:42 05/08/24 10:42 05/08/24 10:42 05/08/24 10:42
Last Documented Vital Signs
Temp Pulse Resp BP Pulse Ox
98.6 F 76 19 159/89 100
05/08/24 22:35 05/08/24 22:35 05/08/24 22:35 05/08/24 22:35 05/08/24 22:35
<Hilton Patel PA-C - Last Filed: 05/08/24 15:30>
MDM/Problems Addressed
Differential Diagnosis Includes:
Asymptomatic anemia, sickle cell disease, no concern for sickle cell crisis
MDM/Problems Addressed:
53-year-old male presenting emergency department for evaluation after having hemoglobin checked at [facility] and found to have a hemoglobin of 6.5. Patient with history of similar. Baseline reportedly 7-1/2-8. No fevers or
infectious symptoms, no evidence for bleeding. Patient transfused here in the past. Will order 1 unit. Anticipate discharge back to half-way following transfusion completion.
Chronic conditions affecting care: Other (Sickle cell anemia)
Acute Exacerbation and/or Progression of Chronic Illness: Other (Sickle cell anemia)
<Hilton Patel PA-C - Last Filed: 05/08/24 15:30>
*Pulse Oximetry
Patient hypoxic: no
Data Reviewed
Review of Other/Old Records Reveals: Labs and Records
<Loc Solomon PA-C - Last Filed: 05/08/24 22:44>
*Critical Care Note
Total Time (30-74mins, 75-104mins- exclusive of procedures): Not Applicable
ED Attending Note
<Hilton Patel PA-C - Last Filed: 05/08/24 15:30>
-
Portions of this chart may have been created with voice recognition software.� Occasional wrong word or��sound alike� substitutions may have occurred due to the inherent limitations of voice recognition software.
Discharge Plan
Departure
Patient Disposition: Snf
Date of Disposition: 05/08/24
Time of Disposition: 22:44
Patient with high blood pressure during this ER visit?: Yes
Discharge Problem:
Sickle cell anemia
Instructions: Sickle cell disease
Prescriptions:
No Action
losartan 100 mg Tablet
100 mg PO HS
hydralazine 25 mg Tablet
25 mg PO BID
cyanocobalamin (vitamin B-12) 1,000 mcg Tablet
1,000 mcg PO DAILY
Theragen Tablet
1 tab PO HS
folic acid 1 mg Tablet
1 mg PO HS
metoprolol tartrate 25 mg Tablet
25 mg PO BID
Referrals:
[facility] [Family Provider] -
Activity Restrictions/Additional Instructions:
Patient is medically cleared for incarceration
Interventions
Interventions:
*Risk Screen - Suicide Last Done: 05/08/24 11:37
*General Assessment Last Done: 05/08/24 10:42
*Neglect/Abuse Screening Last Done: 05/08/24 11:37
ED- Fall Risk Assessment Last Done: 05/08/24 11:37
*ED COVID-19 Vaccine History Last Done: 05/08/24 10:42
Discharge Date and Time
Print Language: ROMANSH
[2024-05-08 13:11] LABS: APTT 75.3 Sec (23.4-35.0)
[2024-05-08 13:49] LABS: Blood Urea Nitrogen 16 mg/dl (9-20); Calcium 8.7 mg/dl (8.4-10.2); Carbon Dioxide 22 mmol/L (22-30); Chloride 113 mmol/L (98-107); Estimated Creatinine Clearance 93 ml/min; Glucose 104 mg/dl (70-99); Potassium 4.5 mmol/L (3.5-5.1); Sodium 139 mmol/L (135-145); eGFR > 60.00
== END 2024-05-08 22:52 ==
LOC: EMR 10:36
PROVIDERS: Physician Assistant Medical; EMERGENCY PHYSICIAN Emergency Medicine
DX: D57.1 Sickle-cell disease without crisis (principal); I10 Essential (primary) hypertension; F17.200 Nicotine dependence, unspecified, uncomplicated
CPT/HCPCS: 99285; 36430; 80048; 85025; 85610; 85730; 86850; 86900; 86901; 86902; 86920; 86922; P9016

== ENCOUNTER 2024-05-22 11:33 | Emergency (ER) | payer OTHER, SELFPAY ==
[2024-05-22 11:37] VITALS: BP 148/81
[2024-05-22 12:00] VITALS: BP 151/110
[2024-05-22 12:09] LABS: % Basophils 1.1 % (0-2); % Eosinophils 3.2 % (0-6); % Immature Granulocytes 0.9 % (0-0.5); % Lymphocytes 35.8 % (20.5-51.1); % Neutrophils 45.3 % (42.2-75.2); Absolute Basophils 0.1 10^3/uL (0-0.2); Absolute Eosinophils 0.3 10^3/uL (0-0.7); Absolute Immature Granulocytes 0.1 10^3/uL (0-0.05); Absolute Lymphocytes 3.3 10^3/uL (1.2-3.4); Absolute Monocytes 1.3 10^3/uL (0.1-0.6); Absolute Neutrophils 4.2 10^3/uL (1.4-6.5); Mean Corpuscular Hgb 24.5 pg (27.0-31.0); Mean Corpuscular Volume 74.1 fL (80.0-94.0); Mean Platelet Volume 10.1 fL (7.4-10.4); Nucleated Red Blood Cells % 14.3 % (-); Platelet Count 156 10^3/uL (130-400); Red Cell Dist. Width 21.5 % (11.5-14.5); White Blood Cell Count 9.2 10^3/uL (4.8-10.8)
[2024-05-22 12:16] LABS: ALT (SGPT) 32 U/L (0-50); AST (SGOT) 92 U/L (17-59); Albumin 3.9 g/dl (3.5-5.0); Alkaline Phosphatase 249 U/L (38-126); Blood Urea Nitrogen 16 mg/dl (9-20); Carbon Dioxide 20 mmol/L (22-30); Chloride 110 mmol/L (98-107); Glucose 98 mg/dl (70-99); Potassium 4.3 mmol/L (3.5-5.1); Sodium 144 mmol/L (135-145); Total Bilirubin 3.3 mg/dl (0.2-1.3); Total Protein 8.1 g/dl (6.3-8.2); eGFR > 60.00
[2024-05-22 12:26] LABS: Hematocrit 20.9 % (39.0-52.0)
[2024-05-22 12:28] LABS: Reticulocyte Count 7.5 % (0.4-2.8)
[2024-05-22 13:00] VITALS: BP 148/88
--- NOTE | 2024-05-22 13:31 | ED.GENMED ---
History of Present Illness
General
Chief Complaint: Abnormal Lab Value
Source: patient and records
Exam Limitations: none
Time Seen by Provider: 05/22/24 11:51
History of Present Illness
History of Present Illness:
Patient presents with a low hemoglobin. Drawn routinely at present. Totally asymptomatic. History of chronic anemia related to his sickle cell crisis. Denies chest pain shortness of breath lightheaded fever or other complaints. Patient states
he feels great
Past History
Past History
ED Past Medical History: HTN and Other (Sickle cell anemia)
ED Past Surgical History: None
Social History
Tobacco: Smoker
Alcohol: None
Drug: None
Personal: Single
Living: nursing home
Review of Systems
Review of Systems
All Other Systems: Not applicable
Constitutional: Denies fever or chills
Respiratory: Reports no symptoms
Cardiac: Reports no symptoms
ABD/GI: Reports no symptoms
Phy Exam
Physical Exam
Physical Exam:
GENERAL: Alert and oriented in no apparent distress
EYE: Orbits normal.
NECK: Supple
CARDIAC: Regular rate and rhythm without any obvious murmurs.
LUNGS: Clear breath sounds,normal
ABDOMEN: Soft, without focal tenderness or distention
NEUROLOGICAL: Alert and oriented , grossly non-focal
SKIN: Warm and dry, no rash or lesion, no discoloration, skin intact.
MUSCULOSKELETAL: No edema,no deformity.Good color
PSYCH: Normal and appropriate interaction.
Course
Orders/Labs/Results
Orders:
Orders
05/22/24 11:47
Type+Screen Urgent
Complete Blood Count/With Diff Urgent
Comprehensive Metabolic Panel Urgent
Reticulocyte Count Urgent
05/22/24 11:58
Add On- LAB Urgent
Tests Added?: retic count
Abnormal Lab Results
05/22/24
11:47
RBC 2.80 L 10^6/uL
(4.70-6.10)
Hgb 7.0 L g/dL
(13.0-18.0)
Hct 20.9 L* %
(39.0-52.0)
MCV 74.1 L fL
(80.0-94.0)
MCH 24.5 L pg
(27.0-31.0)
RDW 21.5 H %
(11.5-14.5)
Abs Immat Gran (auto) 0.1 H 10^3/uL
(0-0.05)
Absolute Monos (auto) 1.3 H 10^3/uL
(0.1-0.6)
Immature Gran % 0.9 H %
(0-0.5)
Monocytes % 14.0 H %
(1.7-9.3)
Retic Count 7.5 H %
(0.4-2.8)
Chloride 110 H mmol/L
(98-107)
Carbon Dioxide 20 L mmol/L
(22-30)
Total Bilirubin 3.3 H mg/dl
(0.2-1.3)
AST 92 H U/L
(17-59)
Alkaline Phosphatase 249 H U/L
(38-126)
05/22/24 11:47
05/22/24 11:47
Vital Signs
Initial and Last Documented VS:
Initial Vital Signs
Temp Pulse Resp BP Pulse Ox
98.0 F 71 18 148/81 98
05/22/24 11:37 05/22/24 11:37 05/22/24 11:37 05/22/24 11:37 05/22/24 11:37
Last Documented Vital Signs
Temp Pulse Resp BP Pulse Ox
98.0 F 71 18 148/81 98
05/22/24 11:37 05/22/24 11:37 05/22/24 11:37 05/22/24 11:37 05/22/24 11:37
*Pulse Oximetry
Patient hypoxic: no
*Critical Care Note
Total Time (30-74mins, 75-104mins- exclusive of procedures): Not Applicable
Update Note
Update Note:
Patient's hemoglobin is 7.0. He is totally asymptomatic. No acute GI bleeding. Will hold on transfusion at this time and follow-up hemoglobin closely
ED Attending Note
-
Portions of this chart may have been created with voice recognition software.� Occasional wrong word or��sound alike� substitutions may have occurred due to the inherent limitations of voice recognition software.
Discharge Plan
Departure
Patient Disposition: Home (Routine Discharge)
Date of Disposition: 05/22/24
Time of Disposition: 13:41
Patient with high blood pressure during this ER visit?: No
Discharge Problem:
Anemia, Sickle cell disease
Instructions: Sickle cell disease, BLOOD PRESSURE
Prescriptions:
No Action
losartan 100 mg Tablet
100 mg PO HS
hydralazine 25 mg Tablet
25 mg PO BID
cyanocobalamin (vitamin B-12) 1,000 mcg Tablet
1,000 mcg PO DAILY
Theragen Tablet
1 tab PO HS
folic acid 1 mg Tablet
1 mg PO HS
metoprolol tartrate 25 mg Tablet
25 mg PO BID
Referrals:
[facility] [Family Provider] -
Activity Restrictions/Additional Instructions:
Recommend repeating the hemoglobin in 3 to 4 days. Patient's hemoglobin here was 7.0.
If his hemoglobin has dropped significantly or he becomes symptomatic return to the ER for transfusion
Interventions
Interventions:
*General Assessment Last Done: 05/22/24 11:38
*ED COVID-19 Vaccine History Last Done: 05/22/24 11:38
Discharge Date and Time
Print Language: ALBANIAN
[2024-05-22 14:00] VITALS: BP 149/90
[2024-05-22 14:43] VITALS: BP 149/90
== END 2024-05-22 14:45 | disposition home or self-care (01) ==
LOC: EMR 11:33
PROVIDERS: EMERGENCY PHYSICIAN Emergency Medicine
DX: D64.9 Anemia, unspecified (principal); D57.1 Sickle-cell disease without crisis; I10 Essential (primary) hypertension; F17.200 Nicotine dependence, unspecified, uncomplicated
CPT/HCPCS: 99283; 80053; 85025; 85045; 86850; 86900; 86901

== ENCOUNTER 2024-06-04 17:50 | Inpatient (IN) | payer OTHER, SELFPAY ==
[2024-06-04] VITALS (17 sets, daily range): BP systolic 122–198; BP diastolic 80–112; BMI 24.1
[2024-06-04 09:53] LABS: Lactic Acid 0.6 mmol/L (0.7-2.0)
[2024-06-04 09:53] LABS: APTT 73.4 Sec (23.4-35.0)
[2024-06-04] MEDS: TORADOL 30 MG IV (09:53)
[2024-06-04 09:54] LABS: ALT (SGPT) 33 U/L (0-50); AST (SGOT) 86 U/L (17-59); Albumin 3.7 g/dl (3.5-5.0); Alkaline Phosphatase 234 U/L (38-126); Blood Urea Nitrogen 17 mg/dl (9-20); Calcium 9.1 mg/dl (8.4-10.2); Carbon Dioxide 21 mmol/L (22-30); Chloride 111 mmol/L (98-107); Estimated Creatinine Clearance 93 ml/min; Glucose 90 mg/dl (70-99); Lipase 142 U/L (23-300); Magnesium 1.9 mg/dl (1.6-2.3); Potassium 3.9 mmol/L (3.5-5.1); Sodium 143 mmol/L (135-145); Total Bilirubin 3.1 mg/dl (0.2-1.3); Total Protein 7.9 g/dl (6.3-8.2); eGFR > 60.00
--- NOTE | 2024-06-04 09:58 | ED.GENMED ---
History of Present Illness
General
Chief Complaint: Abnormal Lab Value
Source: patient and police
Exam Limitations: none
Time Seen by Provider: 06/04/24 09:23
Nursing documentation reviewed up to this point in time: agreed with
History of Present Illness
History of Present Illness:
53-year-old male past medical history of sickle cell disease, presenting to the emergency department today with concerns of low hemoglobin. He also claims he is having worsening abdominal pain shortness of breath some some degree of chest pain over
the past 4 days. Has had multiple transfusions over the past few previously was asymptomatic. Denies any fevers. Did vomit once yesterday. Denies change in bowel movements.
Past History
Past History
ED Past Medical History: HTN and Other (Sickle cell anemia)
ED Past Surgical History: None
Social History
Tobacco: Smoker
Alcohol: None
Drug: None
Personal: Single
Living: group home
Review of Systems
Review of Systems
Allergies reviewed?: Yes
All Other Systems: ROS reviewed and negative except as documented in HPI and ROS
Phy Exam
Physical Exam
Physical Exam:
GENERAL: Alert , in no apparent distress
EYE: pupils equal and reactive
NECK: Supple, no significant adenopathy.
ENT: o/p clr, mmm.
CARDIAC: Regular rate and rhythm .
LUNGS: Clear breath sounds bilaterally, no acute respiratory distress, no wheezes/rales/rhonchi
ABDOMEN: Diffusely tender abdomen with voluntary guarding nonperitoneal
NEUROLOGICAL: Alert and oriented, no focal neuro deficits
SKIN: Warm and dry, skin intact.
MUSCULOSKELETAL: No edema, well perfused.
PSYCH: Normal and appropriate interaction.
Course
Orders/Labs/Results
Orders:
Orders
06/04/24 09:25
EKG [Electrocardiogram (*1)] Urgent
Reason for Study: Chest Pain
CT Abd/Pel (IV only)-DH only Urgent
Comment:
Reason For Exam: abd pain sickle cell history
Urinalysis Reflex To Culture Urgent
Chest [CR Chest - 2 Views ] Urgent
Comment:
Reason For Exam: cp
06/04/24 09:27
EKG- Treatment ONCE
06/04/24 09:29
Lactic Acid Urgent
06/04/24 09:30
Type+Screen Urgent
Complete Blood Count/With Diff Urgent
Comprehensive Metabolic Panel Urgent
Lipase Urgent
Magnesium Urgent
PTT Urgent
Reticulocyte Count Urgent
Troponin I Urgent
06/04/24 09:42
Ketorolac [Toradol] 30 mg IV NOW STA
06/04/24 10:02
* Blood Bank Products Urgent
Blood Bank Products: *Packed RBC Leuko(PRBC's)
Quantity: 1
Transfuse Today: Yes
Reason: Anemia
06/04/24 10:48
HYDROmorphone [Dilaudid] 0.5 mg IV NOW STA
06/04/24 10:54
Ondansetron Injectable [Zofran] 4 mg .ROUTE .STK-MED ONE
06/04/24 11:12
Ondansetron Injectable [Zofran] 4 mg IV NOW STA
06/04/24 14:00
HYDROmorphone [Dilaudid] 1 mg IV NOW STA
06/04/24 15:06
HYDROmorphone [Dilaudid] 1 mg IV NOW STA
06/04/24 15:07
EKG [Electrocardiogram (*1)] Urgent
Reason for Study: Other
Other Reason for Exam: trop f/u
EKG- Treatment ONCE
06/04/24 15:12
Troponin I Urgent
Abnormal Lab Results
06/04/24 06/04/24
09:30
RBC 2.89 L 10^6/uL
(4.70-6.10)
Hgb 6.8 L* g/dL
(13.0-18.0)
Hct 21.1 L %
(39.0-52.0)
MCV 73.0 L fL
(80.0-94.0)
MCH 23.5 L pg
(27.0-31.0)
MCHC 32.2 L g/dL
(33.0-37.0)
RDW 20.1 H %
(11.5-14.5)
MPV 11.2 H fL
(7.4-10.4)
Abs Immat Gran (auto) 0.1 H 10^3/uL
(0-0.05)
Absolute Lymphs (auto) 4.0 H 10^3/uL
(1.2-3.4)
Absolute Monos (auto) 1.6 H 10^3/uL
(0.1-0.6)
Neutrophils % 39.2 L %
(42.2-75.2)
Monocytes % 16.4 H %
(1.7-9.3)
Retic Count 5.6 H %
(0.4-2.8)
APTT 73.4 H Sec
(23.4-35.0)
Chloride 111 H mmol/L
(98-107)
Carbon Dioxide 21 L mmol/L
(22-30)
Lactic Acid 0.6 L mmol/L
(0.7-2.0)
Total Bilirubin 3.1 H mg/dl
(0.2-1.3)
AST 86 H U/L
(17-59)
Alkaline Phosphatase 234 H U/L
(38-126)
Troponin I 0.035 H* ng/ml
Crossmatch IS Only See Detail
MTS Gel Crossmatch See Detail
06/04/24 09:30
06/04/24 09:30
Vital Signs
Initial and Last Documented VS:
Initial Vital Signs
Temp Pulse Resp Pulse Ox
97.7 F 64 18 97
06/04/24 09:22 06/04/24 09:22 06/04/24 09:22 06/04/24 09:22
Last Documented Vital Signs
Temp Pulse Resp BP Pulse Ox
97.5 F 58 12 161/104 97
06/04/24 13:50 06/04/24 13:50 06/04/24 13:50 06/04/24 13:50 06/04/24 13:50
MDM/Problems Addressed
MDM/Problems Addressed:
54-year-old male presenting to the emergency department today with concerns of low hemoglobin claims to have had worsening abdominal pain and episode of vomiting and intermittent chest pain shortness of breath over the past 4 days. He has had
multiple transfusions over the past few months but previously was asymptomatic. Here multiple pain concerns concerned this was given Dilaudid additionally hemoglobin 6.8 was given a unit of blood for to count of 5.6% other labs without emergent
findings troponin mildly elevated but has had elevated levels in the past repeated troponin decreasing. EKG without signs of obvious ischemia CT scan of the abdomen obtained without emergent findings. Patient given multiple doses of Dilaudid
claims to still have moderately severe pain plan to admit for further treatment.
*Critical Care Note
Total Time (30-74mins, 75-104mins- exclusive of procedures): Not Applicable
ED Attending Note
-
Portions of this chart may have been created with voice recognition software.� Occasional wrong word or��sound alike� substitutions may have occurred due to the inherent limitations of voice recognition software.
Discharge Plan
Departure
Patient Disposition: Admit
Date of Disposition: 06/04/24
Time of Disposition: 15:58
Admit to: Telemetry
Admit to doctor: Htay
Presentation/result/management discussed w/ accepting MD/DO: Hospitalist
Patient with high blood pressure during this ER visit?: No
Condition: Good
Covid-19: Not Applicable
Discharge Problem:
Sickle cell anemia with pain
Prescriptions:
No Action
losartan 100 mg Tablet
100 mg PO HS
hydralazine 25 mg Tablet
25 mg PO BID
cyanocobalamin (vitamin B-12) 1,000 mcg Tablet
1,000 mcg PO DAILY
Theragen Tablet
1 tab PO HS
folic acid 1 mg Tablet
1 mg PO HS
metoprolol tartrate 25 mg Tablet
25 mg PO BID
Referrals:
[facility] [Family Provider] -
Interventions
Interventions:
*Risk Screen - Suicide Last Done: 06/04/24 09:22
*General Assessment Last Done: 06/04/24 09:22
*Neglect/Abuse Screening Last Done: 06/04/24 09:22
*ED COVID-19 Vaccine History Last Done: 06/04/24 09:22
Discharge Date and Time
Print Language: CHILEAN
[2024-06-04 10:00] LABS: % Basophils 0.8 % (0-2); % Immature Granulocytes 0.5 % (0-0.5); % Lymphocytes 41.1 % (20.5-51.1); % Monocytes 16.4 % (1.7-9.3); % Neutrophils 39.2 % (42.2-75.2); Absolute Basophils 0.1 10^3/uL (0-0.2); Absolute Eosinophils 0.2 10^3/uL (0-0.7); Absolute Immature Granulocytes 0.1 10^3/uL (0-0.05); Absolute Monocytes 1.6 10^3/uL (0.1-0.6); Absolute Neutrophils 3.8 10^3/uL (1.4-6.5); Hematocrit 21.1 % (39.0-52.0); Hemoglobin 6.8 g/dL (13.0-18.0); Mean Corp Hgb Conc. 32.2 g/dL (33.0-37.0); Mean Corpuscular Hgb 23.5 pg (27.0-31.0); Mean Platelet Volume 11.2 fL (7.4-10.4); Platelet Count 131 10^3/uL (130-400); Red Blood Cell Count 2.89 10^6/uL (4.70-6.10); Red Cell Dist. Width 20.1 % (11.5-14.5); Reticulocyte Count 5.6 % (0.4-2.8); White Blood Cell Count 9.7 10^3/uL (4.8-10.8)
[2024-06-04 10:10] LABS: Troponin I 0.035 ng/ml
[2024-06-04 10:14] LABS: Anisocytosis 2+; Polychromasia 1+
[2024-06-04 10:16] LABS: Sickled Red Blood Cells 1+; Tear Drop Red Blood Cells 1+
[2024-06-04 10:18] LABS: Schistocytes Occasional; Target Cells 1+
[2024-06-04 10:20] LABS: Normal RBC Morphology No
[2024-06-04 10:23] LABS: Microcytosis 1+
[2024-06-04] MEDS: ZOFRAN 4 MG IV (11:12)
[2024-06-04] MEDS: DILAUDID 0.5 MG IV (11:13)
[2024-06-04] MEDS: DILAUDID 1 MG IV ×4 (14:33→23:57)
--- NOTE | 2024-06-04 16:00 | HPS.HSE ---
Family Physician
-
Family Physician: [facility]
Chief Complaint
-
Abd pain
History of Present Illness
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 Patient was referred to ED
d/t concerns low hgb noted on outpt labs. Hgb 6.8 with mild troponin elevation 0.035 and BNP 1420 noted here. Patient hypertensive but otherwise VSS on room air non-labored respirations. CXR noted no acute abn's. CT abd/pelvis w/ contrast noted
no acute abn's mild hepatic cirrhosis, cholelithiasis, chronic changes related to sickle cell disease. Received multiple doses of dilaudid in ED, reporting persistent 8/10 pain without relief. At time of evaluation, did not appear to be in acute
distress, however, and was visibly falling asleep during interview. Denies nausea vomiting, requesting diet.
Medical History
Past Medical History
Past Medical History: Reports Other (as above)
Past Surgical History: Reports Other (as above)
Social History
Tobacco: Former Smoker
Alcohol: None
Drug: Marijuana
Personal: Single
Living: Long-Term
Family History
Family History: Not pertinent (reviewed)
Allergies / Home Medications
Allergies reflects when Allergies were last updated in [employer]
Home Medications with original date entered in [employer]
Allergy/Medication List:
Allergies
Allergy/AdvReac Type Severity Reaction Status Date / Time
No Known Allergies Allergy Verified 05/08/24 10:45
Home Medications
losartan 100 mg tablet 100 mg PO HS Blood Pressure 02/19/24
hydralazine 25 mg tablet 25 mg PO BID 03/19/24
cyanocobalamin (vitamin B-12) 1,000 mcg tablet 1,000 mcg PO DAILY 05/08/24
folic acid 1 mg tablet 1 mg PO HS 05/08/24
metoprolol tartrate 25 mg tablet 25 mg PO BID 05/08/24
therapeutic multivitamin 1 tab PO HS 05/08/24
Review of Systems
-
A 12 point ROS was completed and negative except as noted: Yes
Constitutional: Reports Other (as below)
Physical Exam
Vital Signs
Vital Signs
Temp Pulse Resp BP Pulse Ox
97.5 F 58 12 161/104 97
06/04/24 13:50 06/04/24 13:50 06/04/24 13:50 06/04/24 13:50 06/04/24 13:50
Physical Exam
General: Other (as below)
Laboratory Results
-
06/04/24 09:30
06/04/24 09:30
Laboratory Results
APTT 73.4 Sec (23.4-35.0) H 06/04/24 09:30
Lactic Acid 0.6 mmol/L (0.7-2.0) L 06/04/24 09:29
Total Bilirubin 3.1 mg/dl (0.2-1.3) H 06/04/24 09:30
AST 86 U/L (17-59) H 06/04/24 09:30
ALT 33 U/L (0-50) 06/04/24 09:30
Alkaline Phosphatase 234 U/L (38-126) H 06/04/24 09:30
Troponin I 0.030 ng/ml 06/04/24 15:12
Lipase 142 U/L (23-300) 06/04/24 09:30
Impression/Plan
-
ROS
General: Denies fever chills night sweats unexpected weight loss
Neuro: Denies seizure shaking loss of consciousness dizziness vertigo
Psych: denies depression hallucinations confusion manic episodes
Endocrine: Denies polyuria polydipsia polyphagia heat/cold intolerance
HEENT: Denies blindness visual disturbances epistaxis
Pulmonary: reports shortness of breath pleuritic chest pain
Cardiovascular: reports intermittent chest pain irena palpitations leg swelling
Hematology: denies signs symptoms of anemia easy bruising/bleeding
Gastrointestinal: reports abd pain denies nausea vomiting
Genito-Urinary: denies retention incontinence dysuria
Musculoskeletal: denies joint pain weakness
Dermatology: denies rash laceration bruising
Physical Exam
General: No pallor, cyanosis, or jaundice.
HEENT: Throat clear. PERRLA Normocephalic atraumatic
NECK: Supple. No JVD Carotid Bruits
RESPIRATORY: Bibasilar crackles
CVS: S1, S2 normal. RRR. No murmur, rub or gallop.
ABDOMEN: Soft, non-tender. No distension. BS+/normal.
EXTREMITIES: No peripheral cyanosis or edema.
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
IMPRESSION:
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 Patient was referred to ED
d/t concerns low hgb noted on outpt labs. Hgb 6.8 with mild troponin elevation 0.035 and BNP 1420 noted here. Patient hypertensive but otherwise VSS on room air non-labored respirations. CXR noted no acute abn's. CT abd/pelvis w/ contrast noted
no acute abn's mild hepatic cirrhosis, cholelithiasis, chronic changes related to sickle cell disease. Received multiple doses of dilaudid in ED, reporting persistent 8/10 pain without relief. At time of evaluation, did not appear to be in acute
distress, however, and was visibly falling asleep during interview. Denies nausea vomiting, requesting diet.
PLAN:
#Sickle Cell Crisis
#Anemia
cont pain control prn dilaudid
follow up iron studies B12 Folate
Follow up response to 1PRBC transfusion (given ED) w/ AM labs
Hematology eval
Holding off on IVF given concern possible heart failure
#Mild troponin elevation
#Intermittent Chest pain past few days
#BNP elevated, bibasilar crackles, question possible heart failure
check ECHO
troponin has been mildly elevated in the past
Initial troponin 0.035 since trended down, EKG notes no significant change from prior EKG 11/28/23, repeat EKG remains stable
suspect non-mi related troponin elevation
Monitor on Telemetry
otherwise stable respiratory status on room air, will hold off on diuresis for now
Cardio eval
daily weights
I/O
#HTN
cont home hydralazine losartan metoprolol
#Mild Hepatic Cirrhosis
outpt follow up with GI
DVT ppx scd
GI ppx protonix
I spent a total of 80 minutes with the patient or on the floor. More than 50% of this time involved counseling and coordination of care.
[2024-06-04 17:14] LABS: LDH 656 U/L (120-246)
[2024-06-04 17:57] LABS: NT-proBNP 1420 pg/ml
[2024-06-04] MEDS: LOPRESSOR 25 MG PO (19:56)
[2024-06-04] MEDS: APRESOLINE 25 MG PO (19:57)
[2024-06-04] MEDS: THERAGRAN 1 TABLET PO (21:45)
[2024-06-04] MEDS: FOLVITE 1 MG PO (21:45)
[2024-06-04] MEDS: COZAAR 100 MG PO (21:45)
[2024-06-04] MEDS: APRESOLINE 10 MG IV (23:53)
--- NOTE | 2024-06-05 03:04 | DOWNTIME ---
There was a [employer] Downtime on 06/05/2024 from 0100 to 06/05/2024 at 0300. Downtime documentation of patient's care, including medication administrations, has been reconciled in the electronic record per guidelines. Refer to the
patient's paper chart under the miscellaneous tab to see printed paper medication records and downtime forms.
[2024-06-05 03:22] VITALS: BP 128/87
[2024-06-05] MEDS: TYLENOL 650 MG PO (03:22)
[2024-06-05 06:02] LABS: Urine Albumin 1+ (Neg - Trace); Urine Bilirubin 1+ (Negative); Urine Character Clear (Clear); Urine Color Amber; Urine Glucose Negative (Negative); Urine Ketone Negative (Negative); Urine Leukocyte Trace (Negative); Urine Nitrite Positive (Negative); Urine Occult Blood 1+ (Negative); Urine Specific Gravity 1.015 (<1.030); Urine Urobilinogen 2+ (Neg - 1+)
[2024-06-05 06:10] LABS: Urine Bacteria Moderate (Negative); Urine Red Blood Cell 0-2 /HPF (0-2)
[2024-06-05] MEDS: DILAUDID 1 MG IV ×4 (06:18→20:24)
[2024-06-05 07:23] VITALS: BP 114/71
[2024-06-05 07:40] LABS: Hematocrit 22.4 % (39.0-52.0); Hemoglobin 7.6 g/dL (13.0-18.0); Mean Corp Hgb Conc. 33.9 g/dL (33.0-37.0); Mean Corpuscular Hgb 24.5 pg (27.0-31.0); Mean Corpuscular Volume 72.3 fL (80.0-94.0); Red Cell Dist. Width 20.9 % (11.5-14.5)
[2024-06-05] MEDS: LOPRESSOR 25 MG PO ×2 (07:48→20:33)
[2024-06-05] MEDS: VITAMIN B-12 1000 MCG PO (07:49)
[2024-06-05] MEDS: APRESOLINE 25 MG PO ×2 (07:49→20:23)
[2024-06-05 08:05] LABS: Platelet Count 105 10^3/uL (130-400)
[2024-06-05 08:06] LABS: % Basophils 0.5 % (0-2); % Immature Granulocytes 0.7 % (0-0.5); % Lymphocytes 16.2 % (20.5-51.1); % Monocytes 16.9 % (1.7-9.3); % Neutrophils 65.7 % (42.2-75.2); Absolute Basophils 0.1 10^3/uL (0-0.2); Absolute Immature Granulocytes 0.1 10^3/uL (0-0.05); Absolute Lymphocytes 3.2 10^3/uL (1.2-3.4); Absolute Monocytes 3.4 10^3/uL (0.1-0.6); Absolute Neutrophils 13.2 10^3/uL (1.4-6.5); Nucleated Red Blood Cells % 8.6 % (-)
[2024-06-05 08:07] LABS: ALT (SGPT) 101 U/L (0-50); AST (SGOT) 274 U/L (17-59); Albumin 3.9 g/dl (3.5-5.0); Alkaline Phosphatase 232 U/L (38-126); Blood Urea Nitrogen 34 mg/dl (9-20); Calcium 8.6 mg/dl (8.4-10.2); Carbon Dioxide 18 mmol/L (22-30); Chloride 106 mmol/L (98-107); Estimated Creatinine Clearance 27 ml/min; Glucose 93 mg/dl (70-99); Magnesium 1.8 mg/dl (1.6-2.3); Potassium 5.4 mmol/L (3.5-5.1); Sodium 141 mmol/L (135-145); Total Bilirubin 5.1 mg/dl (0.2-1.3); Total Protein 8.3 g/dl (6.3-8.2)
--- NOTE | 2024-06-05 08:07 | W.PN.HOSP.TC ---
Today's Communication/Plan
-
Incentive Spirometry
IVF support
Oxygen supplementation
pain control
monitor H&H, renal function, potassium
check blood cx, empiric abx
Bladder scan prn, Bladder renal US
Assessment / Plan
Assessment / Plan
Physical Exam
General: No pallor, cyanosis, or jaundice.
HEENT: Throat clear. PERRLA Normocephalic atraumatic
NECK: Supple. No JVD Carotid Bruits
RESPIRATORY: Bibasilar crackles
CVS: S1, S2 normal. RRR. No murmur, rub or gallop.
ABDOMEN: Soft, non-tender. No distension. BS+/normal.
EXTREMITIES: No peripheral cyanosis or edema.
BILINGUAL SECRETARY: AOx3
IMPRESSION:
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 Patient was referred to ED
d/t concerns low hgb noted on outpt labs. Hgb 6.8 with mild troponin elevation 0.035 and BNP 1420 noted here. Patient hypertensive but otherwise VSS on room air non-labored respirations. CXR noted no acute abn's. CT abd/pelvis w/ contrast noted
no acute abn's mild hepatic cirrhosis, cholelithiasis, chronic changes related to sickle cell disease. Received multiple doses of dilaudid in ED, reporting persistent 8/10 pain without relief. At time of evaluation, did not appear to be in acute
distress, however, and was visibly falling asleep during interview. Denies nausea vomiting, requesting diet.
PLAN:
#Sickle Cell Crisis
#Anemia
cont pain control prn dilaudid
follow up iron studies B12 Folate
responded appropriately to 1PRBC transfusion (given ED)
Hematology eval appreciated
IVF support, heart failure unlikely at this time
#SANA
#Mild Hyperkalemia
likely prerenal dehydration
IVF support
check bladder renal US
bladder scan prn
#Possible UTI
urinalysis suggestive though pt appears asymptomatic denies dysuria
Leukocytosis possibly stress reactive as oppose to infection
check blood culture
start ceftriaxone
#Mild troponin elevation
#Intermittent Chest pain past few days
#BNP elevated, bibasilar crackles, question possible heart failure ruled out
ECHO appreciated preserved EF 55-60% no significant valve abn's
troponin has been mildly elevated in the past
Initial troponin 0.035 since trended down, EKG notes no significant change from prior EKG 11/28/23, repeat EKG remains stable
Likely non-mi related troponin elevation
Cardio eval appreciated
daily weights
I/O
#HTN
cont home hydralazine losartan metoprolol
#Mild Hepatic Cirrhosis
outpt follow up with GI
DVT ppx scd
GI ppx protonix
I spent a total of 50 minutes with the patient or on the floor. More than 50% of this time involved counseling and coordination of care.
Anticipated Discharge: 24 - 48 hours
Subjective/Interval History
-
Date of Service: June 05, 2024
Reports improvement in pain symptoms. Denies dysuria, reports urinary frequency.
Objective Data
-
Labs:
Laboratory Results
06/05/24
06:54
WBC 20.0 H
Hgb 7.6 L
Hct 22.4 L
Plt Count 105 L
Sodium Pending
Potassium Pending
Chloride Pending
Carbon Dioxide Pending
BUN Pending
Creatinine Pending
Glucose Pending
Calcium Pending
Total Bilirubin Pending
AST Pending
ALT Pending
Alkaline Phosphatase Pending
Vital Signs:
Vital Signs
Temp Pulse Resp BP Pulse Ox
99.7 F 90 18 114/71 95
06/05/24 07:23 06/05/24 07:49 06/05/24 07:23 06/05/24 07:49 06/05/24 07:23
I&O
06/04/24 06/05/24 06/06/24
06:59 06:59 06:59
Intake Total 250 / 250
Output Total 225 / 225
Balance
--- NOTE | 2024-06-05 09:59 | CON.ONC ---
Documented by User: [email or web address] Romero 06/05/24 12:07
Impression
Impression
Fever
UA with pyuria, urine cx pending
Sickle cell disease, no symptoms of acute chest syndrome. Non-compliant with hematology follow up >1 year
vaso-occlusive crisis
elevated BNP
SANA
acute leukocytosis
Anemia, reported baseline hemoglobin 7-8, s/p 1unit prbc 06/04
Prolonged PTT in April & May 2024
Plan
Plan
Continue folic acid. He does not take hydroxyurea for sickle cell
check dbili
check PTT mixing studies
infectious work up per primary service
pain management
ensure adequate hydration
supplemental O2 prn
Follow up cardiology consult
Recommend incentive spirometry
Outpatient follow-up with Dr. Mcdonald, his summer analyst at [place]
We will follow along peripherally. Please call with questions
Patient History
History of Present Illness
53yo M with sickle cell disease p/w progressive intermittent chest and abdominal pain past few days. These symptoms are associated with exertional dyspnea and pleuritic chest pain. He tells me that these symptoms are typical for his sickle cell
vaso-occlusive crisis. Initial evaluation showed WBC 9.7, Hgb 6.8, Hct 21.1, platelet 105,000, retic 5.6, PTT 73.4, BUN 17, Creatinine 0.9, T bili 3.1, AST 86, ALT, 33, alk phos 234, LDH 656, troponin elevation 0.035 and BNP 1420. UA with pyuria,
urine cx pending. He was admitted and transfused with 1 unit prbc. Labs today show SANA with creatinine 3.1. CXR showed no acute abnormalities. CT abd/pelvis w/ contrast noted no acute abnormalities, however, does note mild hepatic cirrhosis,
cholelithiasis, and chronic changes related to sickle cell disease.
Denies fever, chills, cough, SOB at rest, palpitations, nausea, vomiting, diarrhea, constipation. He denies any lower extremity swelling or calf pain bilaterally. He is using hydromorphone prn pain and ondansetron prn nausea.
Tmax 102.4, no hypoxia or hypotension
Past-Medical/Surgical History
Past medical history includes hypertension and sickle cell disease, genotype unknown to me.
Past surgical history: No prior surgery
Social history: He is currently incarcerated at [facility], lives in [place]. He smokes a half a pack of cigarettes daily and also smokes marijuana. Denies alcohol use
Family history: mother, father and siblings with sickle trait
Patient Medication
�Medication �Instructions �Recorded �Confirmed �Last Taken �Type
losartan 100 mg tablet 100 mg PO HS Blood Pressure 02/19/24 06/04/24 02/18/24 History
hydralazine 25 mg tablet 25 mg PO BID 03/19/24 06/04/24 Unknown History
cyanocobalamin (vitamin B-12) 1,000 mcg PO DAILY 05/08/24 06/04/24 Unknown History
1,000 mcg tablet
folic acid 1 mg tablet 1 mg PO HS 05/08/24 06/04/24 Unknown History
metoprolol tartrate 25 mg tablet 25 mg PO BID 05/08/24 06/04/24 Unknown History
therapeutic multivitamin 1 tab PO HS 05/08/24 06/04/24 Unknown History
Active Medications
Generic Name Dose Route Start Last Admin
Trade Name Freq PRN Reason Stop Dose Admin
Acetaminophen 650 mg 06/05/24 03:09 06/05/24 03:22
Acetaminophen 325 Mg Tablet PO 07/03/24 03:08 650 mg
Q4HPRN PRN Administration
mild pain/AMBRIZ/temp>100.5
Albuterol/Ipratropium 3 ml 06/04/24 18:41
Ipratropium 0.5/Albuterol 3 Mg (3 Ml Ampul) INH
R Q4HPRN PRN
shortness of breath/wheezing
Protocol
Bisacodyl 10 mg 06/04/24 18:41
Bisacodyl 10 Mg Rectal Suppository RECTAL 07/02/24 18:40
[id number] PRN
constipation
Cyanocobalamin 1,000 mcg 06/05/24 08:00 06/05/24 07:49
Cyanocobalamin 1,000 Mcg Tablet PO 07/03/24 07:59 1,000 mcg
DAILY JUSTIN Administration
Folic Acid 1 mg 06/04/24 22:00 06/04/24 21:45
Folic Acid 1 Mg Tablet PO 07/02/24 21:59 1 mg
HS JUSTIN Administration
Hydralazine HCl 25 mg 06/04/24 20:00 06/05/24 07:49
Hydralazine 25 Mg Tablet PO 07/02/24 19:59 25 mg
BID JUSTIN Administration
Hydralazine HCl 10 mg 06/04/24 23:15 06/04/24 23:53
Hydralazine 20 Mg/Ml Vial IV 07/02/24 23:14 10 mg
Q4HPRN PRN Administration
sbp>170
Hydromorphone HCl 1 mg 06/04/24 18:41 06/05/24 06:18
Hydromorphone 0.5 Mg/0.5 Ml Syringe IV 06/18/24 18:40 1 mg
Q3HPRN PRN Administration
moderate severe pain
Losartan Potassium 100 mg 06/04/24 22:00 06/04/24 21:45
Losartan 100 Mg Tablet PO 07/02/24 21:59 100 mg
HS JUSTIN Administration
Metoprolol Tartrate 25 mg 06/04/24 20:00 06/05/24 07:48
Metoprolol 25 Mg Regular Release Tablet PO 07/02/24 19:59 25 mg
BID JUSTIN Administration
Multivitamins Therapeutic 1 tablet 06/04/24 22:00 06/04/24 21:45
Multivitamin Tablet PO 07/02/24 21:59 1 tablet
HS JUSTIN Administration
Ondansetron HCl 4 mg 06/04/24 18:41
Ondansetron 4 Mg/2 Ml Vial IV 07/02/24 18:40
Q6HPRN PRN
nausea and vomiting
Polyethylene Glycol 17 grams 06/04/24 18:41
Polyethylene Glycol Powder 17 Grams Packet PO 07/02/24 18:40
DAILYPRN PRN
constipation
Senna/Docusate Sodium 1 tablet 06/04/24 18:41
Docusate W/Senna (Sylvia-Colace) Tablet PO 07/02/24 18:40
BIDPRN PRN
constipation
Sodium Chloride 0 flush 06/04/24 19:00
Sodium Chloride 0.9% (Flush) Syringe IV 07/02/24 18:59
PER PROTOCOL JUSTIN
Review of Systems
-
Review of systems is notable for HPI, otherwise negative
Physical Exam
-
General: Well Developed, Well Nourished, No Apparent Distress and Comfortable
HEENT: Jaundice
Cardiology: Normal Sinus Rhythm
Pulmonary: Clear; Negative Wheezes, Rales or Rhonchi
GI: Other (Tender in right upper quadrant)
Musculoskeletal: No Cyanosis, No Edema and Clubbing; Negative No Clubbing
Extremities: Negative Phlebitic Signs or Edema
Neurology: Non Focal
Skin: Warm and Dry
Psych: Calm and Intact Judgement/Insight
Labs
Lab Results
WBC 20.0 10^3/uL (4.8-10.8) H 06/05/24 06:54
RBC 3.10 10^6/uL (4.70-6.10) L 06/05/24 06:54
Hgb 7.6 g/dL (13.0-18.0) L 06/05/24 06:54
Hct 22.4 % (39.0-52.0) L 06/05/24 06:54
MCV 72.3 fL (80.0-94.0) L 06/05/24 06:54
MCH 24.5 pg (27.0-31.0) L 06/05/24 06:54
MCHC 33.9 g/dL (33.0-37.0) 06/05/24 06:54
RDW 20.9 % (11.5-14.5) H 06/05/24 06:54
Plt Count 105 10^3/uL (130-400) L 06/05/24 06:54
MPV Not Reportable 06/05/24 06:54
Abs Immat Gran (auto) 0.1 10^3/uL (0-0.05) H 06/05/24 06:54
Absolute Neuts (auto) 13.2 10^3/uL (1.4-6.5) H 06/05/24 06:54
Absolute Lymphs (auto) 3.2 10^3/uL (1.2-3.4) 06/05/24 06:54
Absolute Monos (auto) 3.4 10^3/uL (0.1-0.6) H 06/05/24 06:54
Absolute Eos (auto) 0.0 10^3/uL (0-0.7) 06/05/24 06:54
Absolute Basos (auto) 0.1 10^3/uL (0-0.2) 06/05/24 06:54
Immature Gran % 0.7 % (0-0.5) H 06/05/24 06:54
Neutrophils % 65.7 % (42.2-75.2) 06/05/24 06:54
Lymphocytes % 16.2 % (20.5-51.1) L 06/05/24 06:54
Monocytes % 16.9 % (1.7-9.3) H 06/05/24 06:54
Eosinophils % 0.0 % (0-6) 06/05/24 06:54
Basophils % 0.5 % (0-2) 06/05/24 06:54
Creatinine 3.1 mg/dL (0.7-1.3) H 06/05/24 06:54
Vital Signs
Vital Signs
Temp Pulse Resp BP Pulse Ox
99.7 F 90 18 114/71 95
06/05/24 07:23 06/05/24 07:49 06/05/24 07:23 06/05/24 07:49 06/05/24 07:23

Documented by User: Kaleb Chawla MD 06/05/24 13:04
Plan
Plan
Continue folic acid. He does not take hydroxyurea for sickle cell
check dbili
check PTT mixing studies
infectious work up per primary service
pain management
ensure adequate hydration
supplemental O2 prn
Follow up cardiology consult
Recommend incentive spirometry
Outpatient follow-up with Dr. Mcdonald, his summer analyst at [place]
Hematology Addendum:
-sickle cell anemia w/ crisis
-s/p simple transfusion w/ improvement in Hb and pain
-cont current analgesic regimen - O2 - hydration - supportive care
-coagulopathy - prolonged aPTT - unclear if drawn of line - check repeat aPTT and aPTT mixing study
Will continue to follow with you.
--- NOTE | 2024-06-05 10:02 | CON.CAR ---
Addendum entered and electronically signed by Thiago Viveros MD 06/05/24 12:17:
53 yo male with sickle cell anemia, HTN admitted with acute anemia, concern for sickle cell crisis. We are consulted for abnormal troponin. He also has chest pain, but it is atypical and right sided. Exam with RRR, no murmurs, no edema. Peak trop
0.035 (cut off normal normal is 0.034). Echo shows normal LVEF and wall motion, mild cLVH.
Acute non-ischemic myocardial injury in setting of acute anemia, sickle cell crisis. No additional cardiac testing recommended. Please call us back with additional questions.
Original Note:
Consultation
Consultation Request
Date/Time Consultation Requested: 06/04/241837
Date/Time Consultation Performed: 06/05/24 1035
Requesting Provider: Dr. Lafleur
Performing Provider: Sachi READ for Dr. Viveros
Reason for Consultation: abnormal troponin, pro-bnp
Medical History
-
Chief Complaint: abnormal labs
History of Present Illness:
53 y/o male with sickle cell disease, former smoker (quit 9 months ago), and hypertension who is here due to abnormal outpatient hemoglobin. It was 6.8 on arrival and he is s/p 1 units PRBC's. We are consulted since he has an abnormal troponin, BNP,
and CP and SOB. Trop 0.035 (of note, was 0.057 back in November 2023). He has intermittent chest pain, but reports it as right-sided and worse with inspiration. He does not get CP with exertion. He has had SOB for months now. Otherwise, he has reported
abdominal pain, and had nausea and vomiting Monday. He is in no distress at the time of my assessment.
Past Medical History
Past Medical History: HTN and Other (sickle cell disease)
Social History
Tobacco: Former Smoker
Drug: Marijuana
Living: Residential
Family History
Family History: Hypertension (mom)
Allergies / Home Medications
Allergy/AdvReac Type Severity Reaction Status Date / Time
No Known Allergies Allergy Verified 05/08/24 10:45
�Medication �Instructions �Recorded �Confirmed �Type
losartan 100 mg tablet 100 mg PO HS Blood Pressure 02/19/24 06/04/24 History
hydralazine 25 mg tablet 25 mg PO BID 03/19/24 06/04/24 History
cyanocobalamin (vitamin B-12) 1,000 mcg PO DAILY 05/08/24 06/04/24 History
1,000 mcg tablet
folic acid 1 mg tablet 1 mg PO HS 05/08/24 06/04/24 History
metoprolol tartrate 25 mg tablet 25 mg PO BID 05/08/24 06/04/24 History
therapeutic multivitamin 1 tab PO HS 05/08/24 06/04/24 History
Review of Systems
-
History Source: Patient
All other systems: Negative unless noted
Respiratory: Trouble Breathing
Cardiac: Chest Pain
Abdomen/GI: Abdominal Pain, Nausea and Vomiting
Physical Exam
Vital Signs
Temp Pulse Resp BP Pulse Ox
99.7 F 90 18 114/71 95
06/05/24 07:23 06/05/24 07:49 06/05/24 07:23 06/05/24 07:49 06/05/24 07:23
Lab Results
06/05/24 06:54
06/05/24 06:54
Troponin I 0.030 ng/ml 06/04/24 15:12
Olm-X-Aorlewjozoc Pept 1420 pg/ml 06/04/24 15:12
Physical Exam
General: Well Developed, Well Nourished and No Apparent Distress
HEENT: Normocephalic and Anicteric
Respiratory: Other (mild crackles to bases)
Cardiac: Regular Rhythm
Musculoskeletal: No Edema
Neuro: AO x 3
Psych: Calm
Impression / Plan
-
Sickle cell crisis:
-severe anemia noted, s/p 1 unit PRBC's
-heme is consulted
-he has reported abdominal pain and is being treated with pain medicines. His CT scan showed no significant acute abnormality identified in the abdomen or pelvis, as described above. Normal appendix. Mild hepatic cirrhosis. Cholelithiasis. Chronic
changes related to sickle cell disease.
-SANA is noted this AM and fluids are ordered, elevated WBC is noted. UA abnormal, Fever 102.4, CX pending- management per primary team.
Abnormal troponin:
-0.035, trended down
-suspect chronic non-ischemic myocardial injury in setting of anemia (troponin elevated more in November as noted 0.057)
-his chest pain does not sound to me like cardiac chest pain (atypical- not with exertion, right-sided, with inspiration).
-check echo
SOB:
-likely related to anemia
-also former smoker- quit 9 months ago- I encouraged him to remain smoke free
-there was concern for excess volume due to elevated BNP and crackles. However, he has SANA and is getting IV fluids at this time. CXR was unremarkable. Check echo, monitor volume.
HTN:
-continue hydralazine and metoprolol and monitor. Losartan held for SANA.
Data Reviewed
-
EKG: Tracing Personally Visualized and interpreted (SB 59 BPM, non-specific t abnormality)
Radiology: Report Reviewed by me (CXR: No acute cardiopulmonary process.)
Medical Tests (Nuc Med, Echo etc): Other (echo ordered and pending)
Labs: Labs Reviewed by me
[2024-06-05 10:27] VITALS: BP 122/80
[2024-06-05] MEDS: NSS 1000 IV ×2 (10:36→22:17)
[2024-06-05 10:58] LABS: Direct Bilirubin 3.6 mg/dl (0.0-0.4)
--- NOTE | 2024-06-05 12:26 | CM ---
Patient seen at bedside. Patient states that he will return to [facility] half-way. CM spoke with nurse from [facility] and he indicated that he anticipated patient to return to facility when medically appropriate. CM will need to update
clinical information and call to [facility]irm[facility] at that time. CM will continue to follow for discharge planning needs.
Plan; return to half-way
[2024-06-05 12:30] VITALS: BMI 24.1
[2024-06-05] MEDS: STERILE WATER FOR INJECTION 10 ML IV (13:24)
[2024-06-05] MEDS: ROCEPHIN 1000 MG IV (13:25)
[2024-06-05 15:35] VITALS: BP 136/73
[2024-06-05 19:20] VITALS: BP 117/56
[2024-06-05] MEDS: THERAGRAN 1 TABLET PO (20:23)
[2024-06-05] MEDS: FOLVITE 1 MG PO (20:23)
[2024-06-05 23:25] VITALS: BP 106/57
[2024-06-06] MEDS: DILAUDID 1 MG IV ×4 (02:17→23:23)
[2024-06-06 03:30] VITALS: BP 124/60
[2024-06-06 07:00] VITALS: BP 131/67
[2024-06-06 07:04] LABS: Hematocrit 21.7 % (39.0-52.0); Hemoglobin 7.6 g/dL (13.0-18.0); Mean Corpuscular Hgb 24.7 pg (27.0-31.0); Mean Corpuscular Volume 70.5 fL (80.0-94.0); Platelet Count 131 10^3/uL (130-400); Red Blood Cell Count 3.08 10^6/uL (4.70-6.10); Red Cell Dist. Width 23.8 % (11.5-14.5); White Blood Cell Count 17.3 10^3/uL (4.8-10.8)
[2024-06-06 07:11] LABS: APTT 55.5 Sec (23.4-35.0)
[2024-06-06] MEDS: NSS 1000 IV (07:17)
--- NOTE | 2024-06-06 07:31 | W.PN.HOSP.TC ---
Today's Communication/Plan
-
abx as per ID
bicarb gtt, pain control, O2 supplementation prn
Cruz
monitor renal function K
Lokelma
Assessment / Plan
Assessment / Plan
Physical Exam
General: No pallor, cyanosis, or jaundice.
HEENT: Throat clear. PERRLA Normocephalic atraumatic
NECK: Supple. No JVD Carotid Bruits
RESPIRATORY: Bibasilar crackles
CVS: S1, S2 normal. RRR. No murmur, rub or gallop.
ABDOMEN: Soft, non-tender. No distension. BS+/normal.
EXTREMITIES: No peripheral cyanosis or edema.
ROLL CHANGER: AOx3
IMPRESSION:
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 Patient was referred to ED
d/t concerns low hgb noted on outpt labs. Hgb 6.8 with mild troponin elevation 0.035 and BNP 1420 noted here. Patient hypertensive but otherwise VSS on room air non-labored respirations. CXR noted no acute abn's. CT abd/pelvis w/ contrast noted
no acute abn's mild hepatic cirrhosis, cholelithiasis, chronic changes related to sickle cell disease. Received multiple doses of dilaudid in ED, reporting persistent 8/10 pain without relief. At time of evaluation, did not appear to be in acute
distress, however, and was visibly falling asleep during interview. Denies nausea vomiting, requesting diet.
PLAN:
#Sickle Cell Crisis
#Anemia
cont pain control prn dilaudid
follow up iron studies B12 Folate
responded appropriately to 1PRBC transfusion (given ED)
Hematology eval appreciated
IVF support
#SANA likely multifactorial retention vs sickle cell vs IV contrast
#Hyperkalemia
#Anion Gap Metabolic Acidosis (no significant lactic acidosis)
IVF support switched to Bicarb gtt
bladder renal US appreciated
Cruz started noted retaining 500 cc
#Possible UTI
#Bacteremia
#Possible Sepsis Leukocytosis fever (no lactic acidosis or hypotension)
urinalysis suggestive though pt appears asymptomatic denies dysuria
Leukocytosis possibly stress reactive as oppose to infection
blood culture
ceftriaxone switched to IV vancomycin and cefipime, continues on Vancomycin monotherapy as per ID
ID eval appreciated
#Mild troponin elevation
#Intermittent Chest pain past few days
#BNP elevated, bibasilar crackles, question possible heart failure ruled out
ECHO appreciated preserved EF 55-60% no significant valve abn's
troponin has been mildly elevated in the past
Initial troponin 0.035 since trended down, EKG notes no significant change from prior EKG 11/28/23, repeat EKG remains stable
Likely non-mi related troponin elevation
Cardio eval appreciated
daily weights
I/O
#HTN
cont home hydralazine losartan metoprolol
#Mild Hepatic Cirrhosis
outpt follow up with GI
Abd US appreciated no ascites
DVT ppx scd
GI ppx protonix
I spent a total of 50 minutes with the patient or on the floor. More than 50% of this time involved counseling and coordination of care.
Anticipated Discharge: > 48 hours
Subjective/Interval History
-
Date of Service: June 06, 2024
Reports improvement in pain control.
Objective Data
-
Labs:
Laboratory Results
06/06/24
06:39
WBC 17.3 H
Hgb 7.6 L
Hct 21.7 L
Plt Count 131 D
APTT 55.5 H
Sodium Pending
Potassium Pending
Chloride Pending
Carbon Dioxide Pending
BUN Pending
Creatinine Pending
Glucose Pending
Calcium Pending
Total Bilirubin Pending
AST Pending
ALT Pending
Alkaline Phosphatase Pending
Vital Signs:
Vital Signs
Temp Pulse Resp BP Pulse Ox
98.7 F 80 18 124/60 98
06/06/24 03:30 06/06/24 03:30 06/06/24 03:30 06/06/24 03:30 06/06/24 03:30
I&O
06/05/24 06/06/24 06/07/24
06:59 06:59 06:59
Intake Total 250 / 250 3975 / 3975
Output Total 225 / 225
Balance 25 / 25 3975 / 3975
[2024-06-06 07:50] LABS: ALT (SGPT) 297 U/L (0-50); AST (SGOT) 447 U/L (17-59); Albumin 3.8 g/dl (3.5-5.0); Alkaline Phosphatase 241 U/L (38-126); Blood Urea Nitrogen 62 mg/dl (9-20); Calcium 8.3 mg/dl (8.4-10.2); Carbon Dioxide 14 mmol/L (22-30); Chloride 108 mmol/L (98-107); Estimated Creatinine Clearance 17 ml/min; Glucose 90 mg/dl (70-99); Potassium 6.5 mmol/L (3.5-5.1); Sodium 139 mmol/L (135-145); Total Bilirubin 4.5 mg/dl (0.2-1.3); Total Protein 8.2 g/dl (6.3-8.2); eGFR 13.13
--- NOTE | 2024-06-06 07:58 | PTCARENOTE ---
lab called with critical potassium 6.5, Bun [address] and [address] Lafleur notified and placed electronic orders for repeat chemistry, sodium bicarb, Anthony Fine, accurate I and O's. see new orders, patient made aware, will continue to
monitor.
[2024-06-06 08:08] LABS: Absolute Neutrophils -Man Diff 11.5 10^3/uL (1.4-6.5); Anisocytosis 2+; Band Neutrophils 0 % (0-3); Hypochromasia 1+; Lymphocytes 16 % (20-51); Monocytes 16 % (2-9); Myelocytes 1 % (-); Normal RBC Morphology No; Nucleated Red Blood Cells 30 (-); Ovalocytes Occasional; Platelets Checked Yes; Polychromasia Slight; Schistocytes Occasional; Segmented Neutrophils 67 % (42-75); Sickled Red Blood Cells 1+; Target Cells 1+; Total Cells Counted 100
--- NOTE | 2024-06-06 08:14 | W.PN.ONC2 ---
Today's Communication / Plan
-
trend fever curve, hemolysis panel, renal function
pain management, O2 prn, ensure adequate hydration
consider nephrology consult for SANA
Impression
Impression
Fever
UA with pyuria, urine cx pending
Sickle cell disease, no symptoms of acute chest syndrome. Non-compliant with hematology follow up >1 year
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
elevated BNP
SANA
acute leukocytosis
Anemia, reported baseline hemoglobin 7-8, s/p 1unit prbc 06/04
Prolonged PTT in April & May 2024
Plan
Plan
Continue folic acid. He does not take hydroxyurea for sickle cell
follow hemolysis panel
check PTT mixing studies
infectious work up per primary service
pain management
ensure adequate hydration
supplemental O2 prn
apprec cardiology input
Recommend incentive spirometry
Outpatient follow-up with Dr. Mcdonald, his svp group director at [facility]
Subjective/Objective
Chief Complaint
no new complaints
Subjective
afebrile, no hypotension, using 1L NC
4mg IV Dilaudid/24 hours. Falling asleep during conversation
denies n/v
Vital Signs:
Vital Signs
Temp Pulse Resp BP Pulse Ox
98.7 F 80 18 124/60 98
06/06/24 03:30 06/06/24 03:30 06/06/24 03:30 06/06/24 03:30 06/06/24 03:30
Lab Results:
Laboratory Data
WBC 17.3 10^3/uL (4.8-10.8) H 06/06/24 06:39
Hgb 7.6 g/dL (13.0-18.0) L 06/06/24 06:39
Plt Count 131 10^3/uL (130-400) D 06/06/24 06:39
APTT 55.5 Sec (23.4-35.0) H 06/06/24 06:39
eGFR 13.13 06/06/24 06:39
Physical Exam
HEENT: Moist Mucous Membranes; No Jaundice
Cardiology: S1 and S2
Pulmonary: Rales
GI: Soft
Extremities: Pulses Present; No Edema
Neuro: Non Focal
Review of Systems
Review of Systems
ROS notable for subjective, otherwise negative
Orders
Orders
Orders From Last 24 Hours
06/05/24 10:23
Add On- LAB Routine
06/06/24 06:39
PTT Mixing Study [PTT Circulating Anticoag] IN AM
--- NOTE | 2024-06-06 08:25 | PTCARENOTE ---
lab called with preliminary gram stain-blood culture growing gram positive cocci in pairs and chains. Dr. Lafleur notified and placing electronic orders for Vancomcycin and Cefepime. patient made aware, will continue to monitor.
[2024-06-06] MEDS: LOPRESSOR 25 MG PO ×2 (08:57→20:08)
[2024-06-06] MEDS: VITAMIN B-12 1000 MCG PO (08:58)
[2024-06-06] MEDS: APRESOLINE 25 MG PO ×2 (08:58→20:08)
[2024-06-06] MEDS: LOKELMA 5 GRAM PO ×2 (08:58→10:40)
[2024-06-06] MEDS: SODIUM BICARBONATE 1150 MEQ IV ×2 (09:00→20:10)
[2024-06-06 09:11] LABS: 60 Min PTT 1:10 Mix 60.3 SEC; 60 Min PTT 1:2 Mix 54.1; 60 Minute PTT Control 41.8 SEC; Control Immediate PTT 41.8 SEC; Imm Run PTT 1:10 Mix 53.8 SEC; Imm Run PTT 1:2 Mix 45.3
[2024-06-06 09:21] LABS: Blood Urea Nitrogen 64 mg/dl (9-20); Calcium 8.5 mg/dl (8.4-10.2); Carbon Dioxide 14 mmol/L (22-30); Chloride 108 mmol/L (98-107); Creatine Phosphokinase 315 U/L (55-170); Estimated Creatinine Clearance 18 ml/min; Glucose 100 mg/dl (70-99); Iron 252 ug/dl (49-181); Sodium 138 mmol/L (135-145); eGFR 14.51
--- NOTE | 2024-06-06 09:22 | W.CON.NEPH ---
Addendum entered and electronically signed by Didi Espinoza MD 06/06/24 10:21:
hyperkalemia-likely from SANA and ?u retention -Lokelma total 10gm now
improving k level at 6, will give calcium
Original Note:
Consultation
-
Date/Time Consultation Requested: 06/06/24829
Date/Time Consultation Performed: 06/06/2415
Requesting Provider: Jose White
Performing Provider: iDdi Kenyon
Reason for Consultation: SANA, hyperkalemia, met acidosis
Medical History
-
Chief Complaint: Abd pain
History of Present Illness:
53M who is in police custody with hx Sickle Cell p/w progressive intermittent chest and abd pain past few days associated with exertional dyspnea and pleuritic chest pain. Hgb 6.8 with mild troponin elevation 0.035 and BNP 1420 noted here. He
recieved 1 unit PRBC on admit with improvement of hb. CT abd/pelvis w/ contrast on 06/04 noted no acute abn's mild hepatic cirrhosis, cholelithiasis, chronic changes related to sickle cell disease. On admit cr was at 0.9 and increased to 3.1 06/05,
today 5. K high at 6.5, bicarb 14. repeat labs with out intervention showed cr 4.6, k 6, no change in bicarb. He just had aguilera placed and has 500cc tea color urine in the bag. He admits difficulty urinating. IVF changed from NS to bicarb.. He is
not good historian hence history is limited. Currently reports right abd pain is improving, no CP or sob. no rash or pain rest of the body. Denies nausea vomiting, no LE edema. Had fever 06/05, none today. Bld cx growing GPC in pairs. Vancomycin
started, rocephin continued.
Past Medical History
HTN
Sickle cell
Anemia
Social History
He is currently incarcerated at [facility], lives in [place].
Tobacco: Smoker
Alcohol: None
Drug: Marijuana
Family History
mother, father and siblings with sickle trait
mother with CKD not on HD
Allergies / Home Medications
Allergy/AdvReac Type Severity Reaction Status Date / Time
No Known Allergies Allergy Verified 05/08/24 10:45
�Medication �Instructions �Recorded �Confirmed �Type
losartan 100 mg tablet 100 mg PO HS Blood Pressure 02/19/24 06/04/24 History
hydralazine 25 mg tablet 25 mg PO BID Blood Pressure 03/19/24 06/04/24 History
cyanocobalamin (vitamin B-12) 1,000 mcg PO DAILY Supplement 05/08/24 06/04/24 History
1,000 mcg tablet
folic acid 1 mg tablet 1 mg PO HS Supplement 05/08/24 06/04/24 History
metoprolol tartrate 25 mg tablet 25 mg PO BID Blood Pressure 05/08/24 06/04/24 History
therapeutic multivitamin 1 tab PO HS Supplement 05/08/24 06/04/24 History
Review of Systems
-
All complete 12 point ROS have been inquired and found negative other than stated in HPI
All other systems: Negative unless noted
Physical Exam
Vital Signs
Vital Signs
Temp Pulse Resp BP Pulse Ox
99.3 F 88 18 131/67 99
06/06/24 07:00 06/06/24 08:58 06/06/24 07:00 06/06/24 08:58 06/06/24 07:00
Lab Results
WBC 17.3 10^3/uL (4.8-10.8) H 06/06/24 06:39
RBC 3.08 10^6/uL (4.70-6.10) L 06/06/24 06:39
Hgb 7.6 g/dL (13.0-18.0) L 06/06/24 06:39
Hct 21.7 % (39.0-52.0) L 06/06/24 06:39
Plt Count 131 10^3/uL (130-400) D 06/06/24 06:39
Sodium 138 mmol/L (135-145) 06/06/24 08:31
Potassium 6.0 mmol/L (3.5-5.1) H 06/06/24 08:31
Chloride 108 mmol/L (98-107) H 06/06/24 08:31
Carbon Dioxide 14 mmol/L (22-30) L* 06/06/24 08:31
BUN 64 mg/dl (9-20) H 06/06/24 08:31
Creatinine 4.6 mg/dL (0.7-1.3) H* 06/06/24 08:31
eGFR 14.51 06/06/24 08:31
Glucose 100 mg/dl (70-99) H 06/06/24 08:31
Calcium 8.5 mg/dl (8.4-10.2) 06/06/24 08:31
Dio-S-Xrppmjnkdyd Pept 1420 pg/ml 06/04/24 15:12
Albumin 3.8 g/dl (3.5-5.0) 06/06/24 06:39
CT abd with iV contrast:917:
Findings:
Visualized portion of the lung bases are unremarkable. Cardiomegaly.
Slightly nodular contour of the liver. Densely calcified spleen. Simple right renal cyst for which no follow-up imaging is recommended. The left kidney, adrenal glands and pancreas are within normal limits. Gallbladder contains a few dependent
calcified stones.
No abdominal aortic aneurysm.
No enlarged lymph nodes, free fluid, or free air. The bowel is without evidence of obstruction or adjacent inflammatory changes. Normal appendix.
Bladder decompressed and not well evaluated.
Diffuse osseous sclerosis and H-shaped vertebral bodies present, consistent with changes related to chronic sickle cell disease. Grossly no suspicious osseous lesions are identified.
IMPRESSION:
1. No significant acute abnormality identified in the abdomen or pelvis, as described above. Normal appendix.
2. Mild hepatic cirrhosis. Cholelithiasis.
3. Chronic changes related to sickle cell disease.
CXR:
FINDINGS: The right kidney measures 10.7 x 5.6 x 5 cm and the left kidney 10.6 x 5.7 x 5.0 cm. There is a suggestion of some minimal loss of corticomedullary differentiation
There is no renal collecting system dilatation or findings to suggest renal calculus bilaterally.
Predominantly simple appearing cyst with thin internal septation is seen in the right kidney measuring 2.4 x 3.4 x 2.7 cm.
The urinary bladder is virtually completely empty, cannot be evaluated.
Bilateral ureteral jets are not seen but are likely limited by virtually completely empty urinary bladder.
IMPRESSION: No findings to suggest renal collecting system dilatation bilaterally.
Suggestion of some minimal loss of corticomedullary differentiation of the kidneys bilaterally which could represent mild chronic medical renal disease.
3.4 cm predominantly simple right renal cysts with thin internal septation - Bozniak II classification.
Virtually completely empty urinary bladder likely limiting evaluation of ureteral jets.
echo:
CONCLUSIONS
Normal biventricular size and systolic function without regional wall motion
abnormality. Estimated LVEF 55-60%.
Mild concentric left ventricular hypertrophy.
Mild/moderate tricuspid regurgitation. Mildly elevated PASP. Estimated
pulmonary artery pressure of 42 mmHg assuming a right atrial pressure of 3
mmHg.
Severely dilated right atrium. Severely dilated left atrium.
No prior study available for comparison.
Physical Exam
General: Awake, Alert, Oriented, AOx3, No Distress and Nontoxic
HEENT: EOMI, Neck Supple and Other (icteric sclera)
Respiratory: Clear, Normal Excursion and Nonlabored Respirations
Cardiac: S1/S2 and Regular Rate/Rhythm
Breast: Deferred by me
Abdomen: Soft, Nontender and Nondistended
Musculoskeletal: Clubbing, No Cyanosis and No Edema
Skin: No Rash
Neuro: Nonfocal/Grossly Intact
Psych: Mood/afflect pleasant and Appropriate
Data Reviewed
-
Radiology: Report Reviewed by me and Discussed with Patient
Labs: Labs Reviewed by me, Discussed with Nurse and Discussed with Patient
Assessment/Plan
-
IMP:
Sickle Cell Crisis
Anemia
SANA-cr 0.9 on admit
Hyperkalemia
Mixed gap and non gap Metabolic acidosis
GPC bacteremia
Mild troponin elevation
Intermittent Chest pain past few days
HTN
Mild Hepatic Cirrhosis
elevated LFTs
Plan:
A/w sickle cell crisis
SANA-seem multifactorial, mainly NANNETTE(contrast 06/04), SC crisis, and possible U retention
given GPC in pairs check ASO titer and complements to r/o ICGN, check Hep C ab too
urine tea colored may be in ATN phase, initial UA relatively bland 1+alb
keep aguilera(500cc out already), avoid nephrotoxins, ck 315 only
check UA, U lytes, UDS Pending, renal US with out hydro but MRD changes
repeat labs today shows mild improvement? with out intervention
repeat labs at noon if worsening likely HD, pt agrees
cont IV bicarb for met acidosis along with IV pushes x2-mixed gap and A gap
BNP was high initially with mild high trop, echo was ok-cards evaluated
vol status seem stable and he is on RA
dose abx renally, follow vanc levels
hb stable s/p PRBC on admit
BP stable, cont to hold ARB
monitor LFTs too-increasing trend
d/w pt and nursing
[2024-06-06 09:27] LABS: Percent Saturation 98 % (20-50); Total Iron Binding Capacity 255 ug/dl (261-462)
--- NOTE | 2024-06-06 09:29 | PHA.VAN.IN ---
Assessment
- Assessment
Renal Function: Appears elevated from baseline (SCR increased from admission but trending down today 0.9-->3.1-->5-->4.6)
Concomitant Antimicrobials: cefepime
Plan
- Plan
Initial / Loading Dose: 2000mg - administration pending
Maintenance Regimen: dosing by level
Monitoring: random 06/07 600
Pharmacokinetics Vancomycin I
- -
Patient Age: 53
Patient Sex: Male
Vancomycin Day #: 1
Indication: Genito-Urinary Tract
Requesting Provider: Dr. Lafleur
Pertinent Antimicrobial Allergies:
NKDA
Height / Weight:
Height 5 ft 8 in
Actual Weight 71.923 kg
- Vital Signs / Lab Results
Temp Pulse Resp BP Pulse Ox
99.3 F 88 18 131/67 99
06/06/24 07:00 06/06/24 08:58 06/06/24 07:00 06/06/24 08:58 06/06/24 07:00
Lab Results - Hematology
06/04/24 06/05/24 06/06/24
09:30 06:54 06:39
WBC 9.7 20.0 H 17.3 H
Band Neutrophils 0
Lab Results - Chemistry
06/04/24 06/05/24 06/06/24
09:30 06:54 06:39
BUN 17 34 H 62 H
Creatinine 0.9 3.1 H 5.0 H*
Estimated Creat Clear 93 27 17
Albumin 3.7 3.9 3.8
06/06/24
08:31
BUN 64 H
Creatinine 4.6 H*
Estimated Creat Clear 18
Albumin
06/04/24 06/06/24
09:29 08:31
Lactic Acid 0.6 L 1.0
Lab Results - Urine
06/05/24
05:53
Urine Nitrite (Reflex) Positive A
Leukocyte Esterase Rfl Trace A
Urine WBC (Reflex) 3-5
Ur Squamous Epith Cells 3-5
Urine Bacteria (Reflex) Moderate A
Microbiology Results
06/05/24 13:12 Blood Culture - Preliminary
Blood/Venous Positive culture in progress
Gram Stain - Preliminary
[2024-06-06] MEDS: VANCOCIN 540 MG IV (09:43)
[2024-06-06] MEDS: TYLENOL 650 MG PO (10:15)
--- NOTE | 2024-06-06 10:15 | PTCARENOTE ---
patient with temp 101.8 orally. Medicated with PRN Tylenol per parameters. Dr. Lafleur notified, no new orders obtained, will continue to monitor.
[2024-06-06] MEDS: SODIUM BICARBONATE 50 MEQ IV ×2 (10:16→10:24)
[2024-06-06 10:22] LABS: Urine Albumin 1+ (Neg - Trace); Urine Bilirubin 1+ (Negative); Urine Character Clear (Clear); Urine Color Brown; Urine Glucose Negative (Negative); Urine Ketone Trace (Negative); Urine Leukocyte Trace (Negative); Urine Nitrite Negative (Negative); Urine Occult Blood 2+ (Negative); Urine Specific Gravity 1.015 (<1.030); Urine Urobilinogen 3+ (Neg - 1+)
[2024-06-06 10:39] LABS: Urine Bacteria Moderate (Negative); Urine White Cell 0-2 /HPF (0-5)
[2024-06-06 10:48] LABS: Amphetamines Negative (Negative); Barbiturates Negative (Negative); Benzodiazepines Negative (Negative); Buprenorphine Negative (Negative); Cocaine Negative (Negative); Marijuana Negative (Negative); Methadone Negative (Negative); Methamphetamines Negative (Negative); Opiates Positive (Negative); Phencyclidine Negative (Negative); Tricyclic Antidepressants Negative (Negative)
[2024-06-06 11:00] VITALS: BP 131/72
[2024-06-06 11:07] LABS: Urine Sodium 18 mmol/L (30-90)
[2024-06-06 11:13] LABS: Fentanyl, Urine Negative (Negative)
[2024-06-06] MEDS: CALCIUM GLUCONATE 100 IV (11:28)
[2024-06-06 11:32] LABS: Folate > 20.0 ng/ml (2.76-20); Vitamin B12 814 pg/ml (239-931)
[2024-06-06] MEDS: DITROPAN 5 MG PO ×3 (12:10→20:08)
--- NOTE | 2024-06-06 12:15 | PTCARENOTE ---
patient c/o feeling to urinate since Cruz placed at 0920. Spoke with Dr. Lafleur while on floor and requested order for Ditropan. He agreed and placed electronic order, will continue to monitor.
--- NOTE | 2024-06-06 12:30 | CON.ID ---
Consultation
-
Date/Time Consultation Requested: 06/06/2024 08:39
Date/Time Consultation Performed: 06/06/2024 1220
Requesting Provider: Dr. Lafleur
Performing Provider: Dr. Casarez
Reason for Consultation: Bacteremia; sickle cell disease/crisis
Chief Complaint / Past History
History of Present Illness
Bon Bellamy is a 53-year-old male with a significant past medical history of sickle cell disease being evaluated the request of Dr. Lafleur in regards to bacteremia. History is obtained from chart review, along with patient interview.
Patient currently is incarcerated at a local residential, and reports that he intermittently has sickle crisis. He reports feeling ill for several days prior to admission with stomach pains and also pain on his right side when taking a deep breath. He
denied any cough. He denies any fevers prior to admission. He presented to the emergency room here at [facility] on 06/04 after outpatient testing revealed a low hemoglobin. At admission, blood cultures were obtained which are now found to
be positive for gram-positive cocci. Infectious Diseases is asked to comment on further antibiotic management.
At this point in time he denies any cough or congestion. He denies any fevers. He notes that his right thoracic discomfort is now improved.
He does not know if he has ever received any vaccinations specific to his sickle disease or otherwise.
Past History
Additional Past Medical History:
Sickle cell disease
Past Surgical History: None
Allergy History:
No Known Allergies Allergy (Verified 05/08/24 10:45)
Medications Reviewed: Yes
Current Antibiotics:
Vancomycin (dosing per pharmacy)
Cefepime 1 g IV every 12 hours
Social History
Tobacco: Former Smoker
Alcohol: None
Drug: Marijuana
Personal: Single
Living: [place]
Employment: Not Employed
Family History
Family History: Not Pertinent
Review of Systems
Vital Signs
Temp Pulse Resp BP Pulse Ox
101.8 F H 91 16 131/72 97
06/06/24 11:00 06/06/24 11:00 06/06/24 11:00 06/06/24 11:00 06/06/24 11:00
Physical Exam
Physical Exam
Constitutional: No Acute Distress, Comfortable and Non-toxic
Head: Normocephalic
Eyes: Pupils Equal, Pupils Round, No Conjunctival Hemorrhage and Sclera Anicteric
Oral: No Thrush and No Ulcers
Cardiovascular: Regular Rate and S1/S2; Negative S3/S4
Pulmonary: Clear; Negative Wheezes, Rales or Rhonchi
Gastrointestinal: Soft, Non Tender and Non Distended
Genito-Urinary: Cruz and Hematuria
Extremities: Clubbing; Negative Edema or Cyanosis
Musculoskeletal: Negative Joint Swelling
Neurological: Awake and Alert
Psychological: Calm
.
Lab / Diagnostic Study Results
06/06/24 06:39
Abs Immat Gran (auto) 0.1 10^3/uL (0-0.05) H 06/05/24 06:54
Absolute Neuts (auto) 13.2 10^3/uL (1.4-6.5) H 06/05/24 06:54
Absolute Lymphs (auto) 3.2 10^3/uL (1.2-3.4) 06/05/24 06:54
Absolute Monos (auto) 3.4 10^3/uL (0.1-0.6) H 06/05/24 06:54
Absolute Basos (auto) 0.1 10^3/uL (0-0.2) 06/05/24 06:54
Total Counted 100 06/06/24 06:39
Immature Gran % 0.7 % (0-0.5) H 06/05/24 06:54
Neutrophils % 65.7 % (42.2-75.2) 06/05/24 06:54
Lymphocytes % 16.2 % (20.5-51.1) L 06/05/24 06:54
Monocytes % 16.9 % (1.7-9.3) H 06/05/24 06:54
Eosinophils % 0.0 % (0-6) 06/05/24 06:54
Basophils % 0.5 % (0-2) 06/05/24 06:54
Abs Neuts (Manual) 11.5 10^3/uL (1.4-6.5) H 06/06/24 06:39
Segmented Neutrophils 67 % (42-75) 06/06/24 06:39
Band Neutrophils 0 % (0-3) 06/06/24 06:39
Lymphocytes (Manual) 16 % (20-51) L 06/06/24 06:39
Lactic Acid 1.0 mmol/L (0.7-2.0) 06/06/24 08:31
Urine WBC 0-2 /HPF (0-5) 06/06/24 09:43
Ur Squamous Epith Cells 3-5 /LPF (Few) 06/05/24 05:53
Microbiology Results
Micro:
06/06/24 09:43 Nasal Screen MRSA (PCR) - Final
Nose MRSA not detected - performed by PCR methodology.
06/05/24 05:53 Urine Culture - Final
Urine No Significant Growth
06/06/24 08:40 Blood Culture - Pending
Blood/Venous
06/05/24 13:12 Blood Culture - Preliminary
Blood/Venous Positive culture in progress
Gram Stain - 2 of 2 bottles : GPC pairs/chains
Imaging:
06/05/2024 Renal ultrasound: No findings to suggest renal collecting system dilatation. Mild chronic medical renal disease noted.
06/04/2024 CXR (2 view): No convincing focal infiltrates noted. No pleural effusion. No pneumothorax. 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
06/04/2024 CT abdomen/pelvis with IV contrast: No significant acute abnormality in the abdomen or pelvis. Appendix is normal. Mild hepatic cirrhosis. Cholelithiasis noted. Chronic changes related to sickle cell disease are noted including densely
calcified spleen.
Assessment / Plan
Sickle disease/crisis
Leukocytosis
Fever
Bacteremia with gram-positive cocci
- Gram stain c/w streptococci. ?Pneumoccus
SANA
Elevated bilirubin
Transaminitis
Recommendations:
Continue with vancomycin for today. Further cefepime can be discontinued.
Repeat blood cultures to assess clearance have been ordered.
Monitor white count and temperature curve. Trend LFTs, Hb, creatinine.
Await further culture data to antimicrobial selection and potential de-escalation.
Further recommendations as additional data is returned.
Following acute illness, patient will need to be assessed for vaccinations appropriate for splenectomized patients.
[2024-06-06 12:45] LABS: Complement C3 88 mg/dl (88-165)
[2024-06-06 13:17] LABS: Blood Urea Nitrogen 59 mg/dl (9-20); Calcium 8.5 mg/dl (8.4-10.2); Carbon Dioxide 18 mmol/L (22-30); Chloride 108 mmol/L (98-107); Estimated Creatinine Clearance 25 ml/min; Glucose 124 mg/dl (70-99); Potassium 4.5 mmol/L (3.5-5.1); Sodium 140 mmol/L (135-145); eGFR 20.85
[2024-06-06 13:27] LABS: Hepatitis C Antibody Reactive (Negative)
[2024-06-06 13:57] LABS: Anti Streptolysin Negative (Negative)
[2024-06-06 15:00] VITALS: BP 112/55
--- NOTE | 2024-06-06 15:00 | PTCARENOTE ---
temp 97.9, will continue to monitor.
[2024-06-06 19:33] VITALS: BP 116/70
[2024-06-06] MEDS: THERAGRAN 1 TABLET PO (20:08)
[2024-06-06] MEDS: FOLVITE 1 MG PO (20:10)
[2024-06-06 23:14] VITALS: BP 127/87
[2024-06-07] VITALS (8 sets, daily range): BP systolic 117–142; BP diastolic 68–74; BMI 25.0
[2024-06-07] MEDS: DILAUDID 1 MG IV ×3 (05:22→20:39)
[2024-06-07] MEDS: SODIUM BICARBONATE 1150 MEQ IV (05:54)
[2024-06-07 06:31] LABS: Hematocrit 20.1 % (39.0-52.0); Hemoglobin 6.8 g/dL (13.0-18.0); Mean Corp Hgb Conc. 33.8 g/dL (33.0-37.0); Platelet Count 160 10^3/uL (130-400); Red Blood Cell Count 2.83 10^6/uL (4.70-6.10); Red Cell Dist. Width 24.6 % (11.5-14.5); White Blood Cell Count 13.1 10^3/uL (4.8-10.8)
[2024-06-07 06:45] LABS: Vancomycin Random 14.9 ug/ml
[2024-06-07 06:49] LABS: ALT (SGPT) 235 U/L (0-50); AST (SGOT) 325 U/L (17-59); Albumin 3.3 g/dl (3.5-5.0); Alkaline Phosphatase 214 U/L (38-126); Blood Urea Nitrogen 59 mg/dl (9-20); Calcium 8.5 mg/dl (8.4-10.2); Carbon Dioxide 27 mmol/L (22-30); Chloride 103 mmol/L (98-107); Estimated Creatinine Clearance 44 ml/min; Glucose 107 mg/dl (70-99); LDH 880 U/L (120-246); Magnesium 2.1 mg/dl (1.6-2.3); Potassium 4.1 mmol/L (3.5-5.1); Sodium 140 mmol/L (135-145); Total Bilirubin 4.3 mg/dl (0.2-1.3); Total Protein 7.4 g/dl (6.3-8.2); eGFR 41.92
--- NOTE | 2024-06-07 07:32 | W.PN.HOSP.TC ---
Today's Communication/Plan
-
abx as per ID
pain control
maintain aguilera for now, eventual trial of void
1PRBC
monitor renal function
Assessment / Plan
Assessment / Plan
Physical Exam
General: No pallor, cyanosis, or jaundice.
HEENT: Throat clear. PERRLA Normocephalic atraumatic
NECK: Supple. No JVD Carotid Bruits
RESPIRATORY: Bibasilar crackles
CVS: S1, S2 normal. RRR. No murmur, rub or gallop.
ABDOMEN: Soft, non-tender. No distension. BS+/normal.
EXTREMITIES: No peripheral cyanosis or edema.
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
IMPRESSION:
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 Patient was referred to ED
d/t concerns low hgb noted on outpt labs. Hgb 6.8 with mild troponin elevation 0.035 and BNP 1420 noted here. Patient hypertensive but otherwise VSS on room air non-labored respirations. CXR noted no acute abn's. CT abd/pelvis w/ contrast noted
no acute abn's mild hepatic cirrhosis, cholelithiasis, chronic changes related to sickle cell disease. Received multiple doses of dilaudid in ED, reporting persistent 8/10 pain without relief. At time of evaluation, did not appear to be in acute
distress, however, and was visibly falling asleep during interview. Denies nausea vomiting, requesting diet.
PLAN:
#Sickle Cell Crisis
#Anemia
cont pain control prn dilaudid
follow up iron studies B12 Folate
responded appropriately to 1PRBC transfusion (given ED) trended down however, repeat 1PRBC ordered
Hematology eval appreciated
IVF support
#SANA likely multifactorial retention vs sickle cell vs IV contrast
#Hyperkalemia
#Anion Gap Metabolic Acidosis (no significant lactic acidosis)
IVF support switched to Bicarb gtt
bladder renal US appreciated
Aguilera started noted retaining 500 cc
#Possible UTI
#Bacteremia
#Possible Sepsis Leukocytosis fever (no lactic acidosis or hypotension)
urinalysis suggestive though pt appears asymptomatic denies dysuria
Leukocytosis possibly stress reactive as oppose to infection
blood culture
ceftriaxone switched to IV vancomycin and cefipime, continues on Vancomycin monotherapy as per ID
ID eval appreciated
#Mild troponin elevation
#Intermittent Chest pain past few days
#BNP elevated, bibasilar crackles, question possible heart failure ruled out
ECHO appreciated preserved EF 55-60% no significant valve abn's
troponin has been mildly elevated in the past
Initial troponin 0.035 since trended down, EKG notes no significant change from prior EKG 11/28/23, repeat EKG remains stable
Likely non-mi related troponin elevation
Cardio eval appreciated
daily weights
I/O
#HTN
cont home hydralazine losartan metoprolol
#Mild Hepatic Cirrhosis
outpt follow up with GI
Abd US appreciated no ascites
DVT ppx scd
GI ppx protonix
I spent a total of 50 minutes with the patient or on the floor. More than 50% of this time involved counseling and coordination of care.
Anticipated Discharge: 24 - 48 hours
Subjective/Interval History
-
Date of Service: June 07, 2024
Symptoms including pain improving. Reports overall feeling well.
Objective Data
-
Labs:
Laboratory Results
06/07/24
05:48
WBC 13.1 H
Hgb 6.8 L*
Hct 20.1 L*
Plt Count 160 D
Sodium 140
Potassium 4.1
Chloride 103
Carbon Dioxide 27
BUN 59 H
Creatinine 1.9 H
Glucose 107 H
Calcium 8.5
Total Bilirubin 4.3 H
AST 325 H
ALT 235 H
Alkaline Phosphatase 214 H
Vital Signs:
Vital Signs
Temp Pulse Resp BP Pulse Ox
98.8 F 75 17 125/74 91
06/07/24 02:59 06/07/24 02:59 06/07/24 02:59 06/07/24 02:59 06/07/24 02:59
I&O
06/06/24 06/07/24 06/08/24
06:59 06:59 06:59
Intake Total 3975 / 3975 4040 / 4040
Output Total 2150 / 2150
Balance 3975 / 3975 189 / 189
[2024-06-07 07:45] LABS: Reticulocyte Count 6.1 % (0.4-2.8)
[2024-06-07 08:26] LABS: Absolute Neutrophils -Man Diff 8.9 10^3/uL (1.4-6.5); Band Neutrophils 0 % (0-3); Eosinophils 3 % (0-6); Lymphocytes 21 % (20-51); Monocytes 8 % (2-9); Normal RBC Morphology No; Nucleated Red Blood Cells 71 (-); Platelets Checked Yes; Segmented Neutrophils 68 % (42-75)
[2024-06-07 08:27] LABS: Anisocytosis 1+; Hypochromasia 1+; Polychromasia 1+; Sickled Red Blood Cells 2+; Target Cells 1+
[2024-06-07 08:28] LABS: Total Cells Counted 100
[2024-06-07] MEDS: APRESOLINE 25 MG PO ×2 (09:01→20:41)
[2024-06-07] MEDS: VITAMIN B-12 1000 MCG PO (09:02)
[2024-06-07] MEDS: LOPRESSOR 25 MG PO ×2 (09:02→20:41)
[2024-06-07] MEDS: DITROPAN 5 MG PO ×3 (09:02→20:41)
--- NOTE | 2024-06-07 10:17 | W.PN.NEPH.PH ---
Today's Communication / Plan
-
follow BMP
Assessment/Plan
-
IMP:
Sickle Cell Crisis
Anemia
SANA-cr 0.9 on admit
Hyperkalemia
Mixed gap and non gap Metabolic acidosis
GPC bacteremia
Mild troponin elevation
Intermittent Chest pain past few days
HTN
Mild Hepatic Cirrhosis
elevated LFTs
Plan:
SANA likely more CN
follow BMP
voiding trial in 24-48hrs
-
-
Date of Service: June 07, 2024
CC / HPI / ROS
-
Chief Complaint:
SANA
History of Present Illness:
Hgb low 6.[address], nonoliguric
BP stable
SANA/Cr down to 1.9
Review of Systems:
no CP/SOB
Labs
-
Labs:
WBC 13.1 10^3/uL (4.8-10.8) H 06/07/24 05:48
RBC 2.83 10^6/uL (4.70-6.10) L 06/07/24 05:48
Plt Count 160 10^3/uL (130-400) D 06/07/24 05:48
Sodium 140 mmol/L (135-145) 06/07/24 05:48
Potassium 4.1 mmol/L (3.5-5.1) 06/07/24 05:48
Chloride 103 mmol/L (98-107) 06/07/24 05:48
Carbon Dioxide 27 mmol/L (22-30) 06/07/24 05:48
BUN 59 mg/dl (9-20) H 06/07/24 05:48
Creatinine 1.9 mg/dL (0.7-1.3) H 06/07/24 05:48
eGFR 41.92 06/07/24 05:48
Glucose 107 mg/dl (70-99) H 06/07/24 05:48
Calcium 8.5 mg/dl (8.4-10.2) 06/07/24 05:48
Bob-L-Eejkafuelwu Pept 1420 pg/ml 06/04/24 15:12
Albumin 3.3 g/dl (3.5-5.0) L 06/07/24 05:48
Physical Exam
-
Vital Signs:
Vital Signs
Temp Pulse Resp BP Pulse Ox
98.7 F 84 16 133/69 93
06/07/24 07:30 06/07/24 07:30 06/07/24 07:30 06/07/24 07:30 06/07/24 07:30
Cardiovascular:: Regular rate and rhythm
Respiratory:: Bilateral: Coarse
Lung Excursion:: Normal
Abdomen:: Nontender and Soft
Bowel Sounds:: Normal
Extremity Edema:: None: Bilateral:
[2024-06-07 10:24] LABS: Hematocrit 19.9 % (39.0-52.0); Hemoglobin 6.9 g/dL (13.0-18.0)
[2024-06-07] MEDS: COMPAZINE 5 MG IV ×2 (11:31→20:40)
--- NOTE | 2024-06-07 12:38 | W.PN.ONC ---
Today's Communication / Plan
-
transfuse 1 unit PRBCs today
follow CBC
creatinine improved
Impression
Impression
Fever
UA with pyuria, urine cx pending
Sickle cell disease, no symptoms of acute chest syndrome. Non-compliant with hematology follow up >1 year
ARF
elevated BNP
SANA
acute leukocytosis
Anemia, reported baseline hemoglobin 7-8, s/p 1unit prbc 06/04
Prolonged PTT in April & May 2024
Plan
Plan
transfuse 1 unit PRBCs today
follow CBC
Continue folic acid. He does not take hydroxyurea for sickle cell
check PTT mixing studies
infectious work up per primary service
pain management
ensure adequate hydration
supplemental O2 prn
nephrology following - creatinine improved
Outpatient follow-up with Dr. 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
Subjective/Objective
Subjective/Objective
lethargic, in NAD, no apparent pain.
Vital Signs:
Vital Signs
Temp Pulse Resp BP Pulse Ox
100 F 86 11 127/68 93
06/07/24 11:50 06/07/24 11:50 06/07/24 11:50 06/07/24 11:50 06/07/24 11:50
Lab Results:
Laboratory Data
WBC 13.1 10^3/uL (4.8-10.8) H 06/07/24 05:48
Hgb 6.9 g/dL (13.0-18.0) L* 06/07/24 09:39
Plt Count 160 10^3/uL (130-400) D 06/07/24 05:48
APTT 55.5 Sec (23.4-35.0) H 06/06/24 06:39
eGFR 41.92 06/07/24 05:48
Exam: unchanged
--- NOTE | 2024-06-07 12:40 | W.PN.ID1 ---
Date of Service
Date of Service: June 07, 2024
Today's Communication
Continue vancomycin. Await further blood culture results.
Assessment / Plan
Sickle disease/crisis
Leukocytosis
- improving
Fever
Bacteremia with gram-positive cocci
- Gram stain c/w streptococci. ?Pneumoccus
SANA
Elevated bilirubin
Transaminitis
Recommendations:
Continue with vancomycin for today.
Repeat blood cultures to assess clearance pending.
Monitor white count and temperature curve. Trend LFTs, Hb, creatinine.
Await further culture data to antimicrobial selection and potential de-escalation.
Further recommendations as additional data is returned.
Following acute illness, patient will need to be assessed for vaccinations appropriate for splenectomized patients.
����������������������������������������������������������
Chief Complaint
-: Clinical Sepsis and Bacteremia
Vital Signs / Physical Exam
Vital Signs
Vital Signs
Temp Pulse Resp BP Pulse Ox
100 F 86 11 127/68 93
06/07/24 11:50 06/07/24 11:50 06/07/24 11:50 06/07/24 11:50 06/07/24 11:50
Physical Exam
Constitutional: Comfortable and Non-toxic
Cardiovascular: S1/S2; Negative S3/S4 or Murmur
Pulmonary: Clear; Negative Wheezes or Rales
Gastrointestinal: Soft and Non Distended
Skin: Warm and Dry; Negative Rash
Objective Data
Lab Data
Lab Results
06/07/24 09:39
06/07/24 05:48
APTT 55.5 Sec (23.4-35.0) H 06/06/24 06:39
Estimated Creat Clear 44 ml/min 06/07/24 05:48
Lactic Acid 1.0 mmol/L (0.7-2.0) 06/06/24 08:31
Total Bilirubin 4.3 mg/dl (0.2-1.3) H 06/07/24 05:48
AST 325 U/L (17-59) H 06/07/24 05:48
ALT 235 U/L (0-50) H 06/07/24 05:48
Alkaline Phosphatase 214 U/L (38-126) H 06/07/24 05:48
Most recent labs reviewed.
Micro Results:
06/05/24 13:12 Blood Culture - Preliminary
Blood/Venous Streptococcus species
Gram Stain - Preliminary
06/06/24 08:40 Blood Culture - Preliminary
Blood/Venous No Growth in 24 hours- Final report to follow
06/06/24 09:43 Nasal Screen MRSA (PCR) - Final
Nose MRSA not detected - performed by PCR methodology.
06/05/24 05:53 Urine Culture - Final
Urine No Significant Growth
Imaging:
06/05/2024 Renal ultrasound: No findings to suggest renal collecting system dilatation. Mild chronic medical renal disease noted.
06/04/2024 CXR (2 view): No convincing focal infiltrates noted. No pleural effusion. No pneumothorax. 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
06/04/2024 CT abdomen/pelvis with IV contrast: No significant acute abnormality in the abdomen or pelvis. Appendix is normal. Mild hepatic cirrhosis. Cholelithiasis noted. Chronic changes related to sickle cell disease are noted including densely
calcified spleen.
[2024-06-07 13:15] LABS: Haptoglobin <10 mg/dL (30-200)
--- NOTE | 2024-06-07 13:29 | PHA.VAN.FU ---
Vancomycin Assessment / Plan
- Assessment
Renal Function: SCR Decreasing
WBC's are: Trending Down
- Assessment - Therapeutic Drug Monitoring
Random Level: 14.9 - drawn ~20H after 2g loading dose
- Dosing Plan
Dosing by Level: Re-dose today (Vanc 1250mg x1 now given improving SCR)
- Monitoring Plan
Random Level: 06/08 0600
- Follow Up
Pharmacy will continue to follow.
Vancomycin Follow UP
- -
Patient Age: 53
Patient Sex: Male
Vancomycin Day #: 2
Indication: Genito-Urinary Tract
Requesting Provider: Dr. Lafleur / Hermelindo
Pertinent Antimicrobial Allergies:
NKDA
Height / Weight:
Height 5 ft 8 in
Actual Weight 74.435 kg
- Vital Signs / Lab Results
Temp Pulse Resp BP Pulse Ox
100 F 86 11 127/68 93
06/07/24 11:50 06/07/24 11:50 06/07/24 11:50 06/07/24 11:50 06/07/24 11:50
Lab Results - Hematology
06/05/24 06/06/24 06/07/24
06:54 06:39 05:48
WBC 20.0 H 17.3 H 13.1 H
Band Neutrophils 0 0
Lab Results - Chemistry
06/05/24 06/06/24 06/06/24
06:54 06:39 08:31
BUN 34 H 62 H 64 H
Creatinine 3.1 H 5.0 H* 4.6 H*
Estimated Creat Clear 27 17 18
Albumin 3.9 3.8
06/06/24 06/07/24
12:36 05:48
BUN 59 H 59 H
Creatinine 3.4 H 1.9 H
Estimated Creat Clear 25 44
Albumin 3.3 L
06/06/24
08:31
Lactic Acid 1.0
Microbiology Results
06/05/24 13:12 Blood Culture - Preliminary
Blood/Venous Streptococcus species
Gram Stain - Preliminary
06/06/24 08:40 Blood Culture - Preliminary
Blood/Venous No Growth in 24 hours- Final report to follow
06/06/24 09:43 Nasal Screen MRSA (PCR) - Final
Nose MRSA not detected - performed by PCR methodology.
06/05/24 05:53 Urine Culture - Final
Urine No Significant Growth
Therapeutic Drug Monitoring
Random Vancomycin 14.9 ug/ml 06/07/24 05:48
[2024-06-07] MEDS: VANCOCIN 275 MG IV (14:29)
--- NOTE | 2024-06-07 16:57 | PTCARENOTE ---
Pt with Hbg 6.9. 1 unit PRBC ordered and transfused. VVS throughout transfusion. Call clayton within reach.
[2024-06-07] MEDS: FOLVITE 1 MG PO (20:40)
[2024-06-07] MEDS: THERAGRAN 1 TABLET PO (20:41)
[2024-06-08] MEDS: DILAUDID 1 MG IV ×2 (01:03→19:50)
[2024-06-08 03:15] VITALS: BP 158/85
[2024-06-08 06:00] VITALS: BMI 25.2
[2024-06-08 06:52] LABS: Hematocrit 24.4 % (39.0-52.0); Hemoglobin 8.3 g/dL (13.0-18.0); Mean Corpuscular Hgb 25.5 pg (27.0-31.0); Mean Corpuscular Volume 74.8 fL (80.0-94.0); Mean Platelet Volume 10.3 fL (7.4-10.4); Platelet Count 174 10^3/uL (130-400); Red Blood Cell Count 3.26 10^6/uL (4.70-6.10); Red Cell Dist. Width 23.7 % (11.5-14.5); White Blood Cell Count 11.1 10^3/uL (4.8-10.8)
[2024-06-08 07:00] VITALS: BP 160/75
[2024-06-08 07:04] LABS: ALT (SGPT) 178 U/L (0-50); AST (SGOT) 223 U/L (17-59); Albumin 3.3 g/dl (3.5-5.0); Alkaline Phosphatase 229 U/L (38-126); Blood Urea Nitrogen 38 mg/dl (9-20); Calcium 9.1 mg/dl (8.4-10.2); Carbon Dioxide 29 mmol/L (22-30); Chloride 107 mmol/L (98-107); Estimated Creatinine Clearance 76 ml/min; Glucose 92 mg/dl (70-99); LDH 811 U/L (120-246); Magnesium 2.2 mg/dl (1.6-2.3); Potassium 4.3 mmol/L (3.5-5.1); Sodium 144 mmol/L (135-145); Total Bilirubin 4.8 mg/dl (0.2-1.3); Total Protein 7.3 g/dl (6.3-8.2); eGFR > 60.00
[2024-06-08 07:14] LABS: Vancomycin Random 12.2 ug/ml
--- NOTE | 2024-06-08 07:27 | W.PN.HOSP.TC ---
Today's Communication/Plan
-
oxycodone prn (dilaudid remains available for severe breakthrough pain)
resume bedtime losartan
allison aguilera, trial of void
cont abx as per ID
CHRIS planned for 06/10 eval possible endocarditis strep bovis bacteremia
Assessment / Plan
Assessment / Plan
Physical Exam
General: No pallor, cyanosis, or jaundice.
HEENT: Throat clear. PERRLA Normocephalic atraumatic
NECK: Supple. No JVD Carotid Bruits
RESPIRATORY: Bibasilar crackles
CVS: S1, S2 normal. RRR. No murmur, rub or gallop.
ABDOMEN: Soft, non-tender. No distension. BS+/normal.
EXTREMITIES: No peripheral cyanosis or edema.
PARTS WASHER: AOx3
IMPRESSION:
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 Patient was referred to ED
d/t concerns low hgb noted on outpt labs. Hgb 6.8 with mild troponin elevation 0.035 and BNP 1420 noted here. Patient hypertensive but otherwise VSS on room air non-labored respirations. CXR noted no acute abn's. CT abd/pelvis w/ contrast noted
no acute abn's mild hepatic cirrhosis, cholelithiasis, chronic changes related to sickle cell disease. Received multiple doses of dilaudid in ED, reporting persistent 8/10 pain without relief. At time of evaluation, did not appear to be in acute
distress, however, and was visibly falling asleep during interview. Denies nausea vomiting, requesting diet.
PLAN:
#Sickle Cell Crisis
#Anemia
cont pain control prn dilaudid switched to Oxycodone (dilaudid remains available for severe breakthrough pain)
iron studies B12 Folate appreciated non-deficient (elevated iron levels likely d/t frequent transfusions)
responded appropriately to 1PRBC transfusion (given ED) trended down however, repeat 1PRBC ordered
Hematology eval appreciated
IVF support
#SANA likely IV contrast induced vs sickle cell vs retention (SANA resolved)
#Hyperkalemia resolved
#Anion Gap Metabolic Acidosis (no significant lactic acidosis) resolved
Improved w/ Bicarb gtt since completed
bladder renal US appreciated no acute abn's
Aguilera started noted retaining 500 cc
passed trial of void 06/08
#Possible UTI
#Bacteremia
#Possible Sepsis Leukocytosis fever (no lactic acidosis or hypotension)
urinalysis suggestive though pt appears asymptomatic denies dysuria
Leukocytosis possibly stress reactive as oppose to infection
blood culture appreciated Strep Bovis good sensitivities
ID eval appreciated vanco discontinued in favor ceftriaxone, CHRIS recommended discuss with Cardio planned for 06/10/24
#Mild troponin elevation
#Intermittent Chest pain past few days
#BNP elevated, bibasilar crackles, question possible heart failure ruled out
ECHO appreciated preserved EF 55-60% no significant valve abn's
troponin has been mildly elevated in the past
Initial troponin 0.035 since trended down, EKG notes no significant change from prior EKG 11/28/23, repeat EKG remains stable
Likely non-mi related troponin elevation
Cardio eval appreciated
daily weights
I/O
#HTN
cont home hydralazine metoprolol
Losartan briefly held d/t SANA, resumed with resolution of SANA
#Mild Hepatic Cirrhosis
outpt follow up with GI
Abd US appreciated no ascites
DVT ppx scd
GI ppx protonix
I spent a total of 50 minutes with the patient or on the floor. More than 50% of this time involved counseling and coordination of care.
Anticipated Discharge: 24 - 48 hours
Subjective/Interval History
-
Date of Service: June 08, 2024
Pain improving. Requiring prn pain medication less frequently. Overall reports feeling well.
Objective Data
-
Labs:
Laboratory Results
06/08/24
06:08
WBC 11.1 H
Hgb 8.3 L D
Hct 24.4 L
Plt Count 174
Sodium 144
Potassium 4.3
Chloride 107
Carbon Dioxide 29
BUN 38 H
Creatinine 1.1
Glucose 92
Calcium 9.1
Total Bilirubin 4.8 H
AST 223 H
ALT 178 H
Alkaline Phosphatase 229 H
Vital Signs:
Vital Signs
Temp Pulse Resp BP Pulse Ox
98.3 F 74 19 158/85 92
06/08/24 03:15 06/08/24 03:15 06/08/24 03:15 06/08/24 03:15 06/08/24 03:15
I&O
06/07/24 06/08/24 06/09/24
06:59 06:59 06:59
Intake Total 4040 / 4040 1895 / 189
Output Total 2150 / 2150 2750 / 2750
Balance 1890 / 1890 -855 / -855
[2024-06-08 08:45] LABS: Absolute Neutrophils -Man Diff 6.8 10^3/uL (1.4-6.5); Anisocytosis 1+; Band Neutrophils 0 % (0-3); Eosinophils 2 % (0-6); Hypochromasia 1+; Lymphocytes 26 % (20-51); Monocytes 10 % (2-9); Normal RBC Morphology No; Platelets Checked Yes; Polychromasia 1+; Segmented Neutrophils 62 % (42-75); Sickled Red Blood Cells 2+; Target Cells 1+; Total Cells Counted 100
[2024-06-08 08:46] LABS: Nucleated Red Blood Cells 90 (-); Reticulocyte Count 5.9 % (0.4-2.8)
[2024-06-08] MEDS: LOPRESSOR 25 MG PO ×2 (08:55→19:52)
[2024-06-08] MEDS: VITAMIN B-12 1000 MCG PO (08:55)
[2024-06-08] MEDS: DITROPAN 5 MG PO ×2 (08:55→16:02)
[2024-06-08] MEDS: APRESOLINE 25 MG PO ×2 (08:56→19:51)
--- NOTE | 2024-06-08 09:07 | W.PN.NEPH.PH ---
Today's Communication / Plan
-
voiding trial
Assessment/Plan
-
IMP:
Sickle Cell Crisis
Anemia
SANA-cr 0.9 on admit
Hyperkalemia
Mixed gap and non gap Metabolic acidosis
GPC bacteremia
Mild troponin elevation
Intermittent Chest pain past few days
HTN
Mild Hepatic Cirrhosis
elevated LFTs
Plan:
SANA likely more CN
follow BMP
voiding trial
-
-
Date of Service: June 08, 2024
CC / HPI / ROS
-
Chief Complaint:
SANA
History of Present Illness:
Hgb 8.[address], nonoliguric
BP stable
SANA/Cr down to 1.1
LFTs improving
Review of Systems:
no CP/SOB
Labs
-
Labs:
WBC 11.1 10^3/uL (4.8-10.8) H 06/08/24 06:08
RBC 3.26 10^6/uL (4.70-6.10) L 06/08/24 06:08
Hgb 8.3 g/dL (13.0-18.0) L D 06/08/24 06:08
Hct 24.4 % (39.0-52.0) L 06/08/24 06:08
Plt Count 174 10^3/uL (130-400) 06/08/24 06:08
Sodium 144 mmol/L (135-145) 06/08/24 06:08
Potassium 4.3 mmol/L (3.5-5.1) 06/08/24 06:08
Chloride 107 mmol/L (98-107) 06/08/24 06:08
Carbon Dioxide 29 mmol/L (22-30) 06/08/24 06:08
BUN 38 mg/dl (9-20) H 06/08/24 06:08
Creatinine 1.1 mg/dL (0.7-1.3) 06/08/24 06:08
eGFR > 60.00 06/08/24 06:08
Glucose 92 mg/dl (70-99) 06/08/24 06:08
Calcium 9.1 mg/dl (8.4-10.2) 06/08/24 06:08
Qba-R-Cyeycjsequj Pept 1420 pg/ml 06/04/24 15:12
Albumin 3.3 g/dl (3.5-5.0) L 06/08/24 06:08
Physical Exam
-
Vital Signs:
Vital Signs
Temp Pulse Resp BP Pulse Ox
98.4 F 85 18 160/75 90
06/08/24 07:00 06/08/24 07:00 06/08/24 07:00 06/08/24 07:00 06/08/24 07:00
Cardiovascular:: Regular rate and rhythm
Respiratory:: Bilateral: Coarse
Lung Excursion:: Normal
Abdomen:: Nontender and Soft
Bowel Sounds:: Normal
Extremity Edema:: None: Bilateral:
[2024-06-08 11:00] VITALS: BP 157/86
--- NOTE | 2024-06-08 11:30 | PHA.VAN.FU ---
Vancomycin Assessment / Plan
- Assessment
Renal Function: SCR Decreasing (3.4->1.9->1.1)
WBC's are: Trending Down
In the past 24 hrs, patient has been: Afebrile
Concomitant Antimicrobials: NONE
- Assessment - Therapeutic Drug Monitoring
Random Level: 12.2 ~ 16 hours post 1250 mg dose
- Dosing Plan
Continue: dose by random level for now
Dosing by Level: Re-dose today (1250 mg x 1 this afternoon)
- Monitoring Plan
Random Level: repeat random level in am
- Follow Up
Pharmacy will continue to follow.
Vancomycin Follow UP
- -
Patient Age: 53
Patient Sex: Male
Vancomycin Day #: 3
Indication: Genito-Urinary Tract
Requesting Provider: Dr. Lafleur / Hermelindo
Pertinent Antimicrobial Allergies:
NKDA
Height / Weight:
Height 5 ft 8 in
Actual Weight 75.024 kg
- Vital Signs / Lab Results
Temp Pulse Resp BP Pulse Ox
98.4 F 85 18 160/75 90
06/08/24 07:00 06/08/24 07:00 06/08/24 07:00 06/08/24 07:00 06/08/24 07:00
Lab Results - Hematology
06/06/24 06/07/24 06/08/24
06:39 05:48 06:08
WBC 17.3 H 13.1 H 11.1 H
Band Neutrophils 0 0 0
Lab Results - Chemistry
06/06/24 06/06/24 06/06/24
06:39 08:31 12:36
BUN 62 H 64 H 59 H
Creatinine 5.0 H* 4.6 H* 3.4 H
Estimated Creat Clear 17 18 25
Albumin 3.8
06/07/24 06/08/24
05:48 06:08
BUN 59 H 38 H
Creatinine 1.9 H 1.1
Estimated Creat Clear 44 76
Albumin 3.3 L 3.3 L
06/06/24
08:31
Lactic Acid 1.0
Microbiology Results
06/05/24 13:12 Blood Culture - Final
Blood/Venous Streptococcus bovis
Gram Stain - Final
06/06/24 08:40 Blood Culture - Preliminary
Blood/Venous No Growth in 48 hours- Final report to follow
06/06/24 09:43 Nasal Screen MRSA (PCR) - Final
Nose MRSA not detected - performed by PCR methodology.
06/05/24 05:53 Urine Culture - Final
Urine No Significant Growth
Therapeutic Drug Monitoring
Random Vancomycin 12.2 ug/ml 06/08/24 06:08
--- NOTE | 2024-06-08 12:23 | W.PN.ID1 ---
Date of Service
Date of Service: June 08, 2024
Today's Communication
Recommend CHRIS.
See below.
Assessment / Plan
Sickle disease/crisis
Leukocytosis
- improving
Fever
Bacteremia with Streptococcus bovis
Elevated bilirubin
Transaminitis
Recommendations:
DC Vancomycin.
Start ceftriaxone.
Repeat blood cultures neg to date.
CT a/p: no acute abnormality
TTE: no gross vege
Needs CHRIS.
Recommend outpatient colonoscopy.
Following acute illness, patient will need to be assessed for vaccinations appropriate for splenectomized patients.
����������������������������������������������������������
Chief Complaint
-: Clinical Sepsis and Bacteremia
Subjective / Review of Systems
Sickle pain better.
Vital Signs / Physical Exam
Vital Signs
Vital Signs
Temp Pulse Resp BP Pulse Ox
98.7 F 86 18 157/86 100
06/08/24 11:00 06/08/24 11:00 06/08/24 11:00 06/08/24 11:00 06/08/24 11:00
Physical Exam
Constitutional: No Acute Distress and Comfortable
Cardiovascular: Regular Rate and S1/S2
Pulmonary: Clear
Gastrointestinal: Soft, Non Tender, Non Distended and Normal Bowel Sounds
Extremities: Negative Edema
Neurological: AO x 3
Objective Data
Lab Data
Lab Results
06/08/24 06:08
06/08/24 06:08
APTT 55.5 Sec (23.4-35.0) H 06/06/24 06:39
Estimated Creat Clear 76 ml/min 06/08/24 06:08
Lactic Acid 1.0 mmol/L (0.7-2.0) 06/06/24 08:31
Total Bilirubin 4.8 mg/dl (0.2-1.3) H 06/08/24 06:08
AST 223 U/L (17-59) H 06/08/24 06:08
ALT 178 U/L (0-50) H 06/08/24 06:08
Alkaline Phosphatase 229 U/L (38-126) H 06/08/24 06:08
Most recent labs reviewed.
Micro Results:
06/05/24 13:12 Blood Culture - Final
Blood/Venous Streptococcus bovis
Gram Stain - Final
06/06/24 08:40 Blood Culture - Preliminary
Blood/Venous No Growth in 48 hours- Final report to follow
06/06/24 09:43 Nasal Screen MRSA (PCR) - Final
Nose MRSA not detected - performed by PCR methodology.
06/05/24 05:53 Urine Culture - Final
Urine No Significant Growth
Imaging:
06/05/2024 Renal ultrasound: No findings to suggest renal collecting system dilatation. Mild chronic medical renal disease noted.
06/04/2024 CXR (2 view): No convincing focal infiltrates noted. No pleural effusion. No pneumothorax. 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
06/04/2024 CT abdomen/pelvis with IV contrast: No significant acute abnormality in the abdomen or pelvis. Appendix is normal. Mild hepatic cirrhosis. Cholelithiasis noted. Chronic changes related to sickle cell disease are noted including densely
calcified spleen.
Care Review
Plan reviewed with: Physician (Drs. Viveros and Miquel)
[2024-06-08] MEDS: STERILE WATER FOR INJECTION 20 ML IV (14:41)
[2024-06-08] MEDS: ROCEPHIN 2000 MG IV (14:42)
[2024-06-08 15:00] VITALS: BP 143/82
[2024-06-08] MEDS: THERAGRAN 1 TABLET PO (21:48)
[2024-06-08] MEDS: FOLVITE 1 MG PO (21:48)
[2024-06-08] MEDS: COZAAR 100 MG PO (21:48)
[2024-06-08 23:10] VITALS: BP 132/61
[2024-06-09 06:00] VITALS: BMI 24.3
[2024-06-09 07:00] VITALS: BP 152/72
--- NOTE | 2024-06-09 07:16 | W.PN.HOSP.TC ---
Today's Communication/Plan
-
cont abx
pain control
npo after midnight for CHRIS
blood pressure control
monitor H&H renal function
Assessment / Plan
Assessment / Plan
Physical Exam
General: No pallor, cyanosis, or jaundice.
HEENT: Throat clear. PERRLA Normocephalic atraumatic
NECK: Supple. No JVD Carotid Bruits
RESPIRATORY: Bibasilar crackles
CVS: S1, S2 normal. RRR. No murmur, rub or gallop.
ABDOMEN: Soft, non-tender. No distension. BS+/normal.
EXTREMITIES: No peripheral cyanosis or edema.
COMPOUNDING ASSISTANT: AOx3
IMPRESSION:
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 Patient was referred to ED
d/t concerns low hgb noted on outpt labs. Hgb 6.8 with mild troponin elevation 0.035 and BNP 1420 noted here. Patient hypertensive but otherwise VSS on room air non-labored respirations. CXR noted no acute abn's. CT abd/pelvis w/ contrast noted
no acute abn's mild hepatic cirrhosis, cholelithiasis, chronic changes related to sickle cell disease. Received multiple doses of dilaudid in ED, reporting persistent 8/10 pain without relief. At time of evaluation, did not appear to be in acute
distress, however, and was visibly falling asleep during interview. Denies nausea vomiting, requesting diet.
PLAN:
#Sickle Cell Crisis
#Anemia
cont pain control prn dilaudid switched to Oxycodone (dilaudid remains available for severe breakthrough pain)
iron studies B12 Folate appreciated non-deficient (elevated iron levels likely d/t frequent transfusions)
responded appropriately to 1PRBC transfusion (given ED) trended down however
06/07 repeat 1PRBC transfusion Hgb 6.9 also exhibited appropriate response 8.3
H&H stable at this time, monitor
Hematology eval appreciated
IVF support
#SANA likely IV contrast induced vs sickle cell vs retention (SANA resolved)
#Hyperkalemia resolved
#Anion Gap Metabolic Acidosis (no significant lactic acidosis) resolved
Improved w/ Bicarb gtt since completed
bladder renal US appreciated no acute abn's
Cruz started noted retaining 500 cc
passed trial of void 06/08
#Possible UTI
#Bacteremia
#Possible Sepsis Leukocytosis fever (no lactic acidosis or hypotension)
urinalysis suggestive though pt appears asymptomatic denies dysuria
Leukocytosis possibly stress reactive as oppose to infection
blood culture appreciated Strep Bovis good sensitivities
ID eval appreciated vanco discontinued in favor ceftriaxone, CHRIS recommended
Cardio eval appreciated CHRIS planned for 06/10/24
#Mild troponin elevation
#Intermittent Chest pain past few days
#BNP elevated, bibasilar crackles, question possible heart failure ruled out
ECHO appreciated preserved EF 55-60% no significant valve abn's
troponin has been mildly elevated in the past
Initial troponin 0.035 since trended down, EKG notes no significant change from prior EKG 11/28/23, repeat EKG remains stable
Likely non-mi related troponin elevation
Cardio eval appreciated
daily weights
I/O
#HTN
cont home hydralazine metoprolol
Losartan briefly held d/t SANA, resumed with resolution of SANA
#Mild Hepatic Cirrhosis
outpt follow up with GI
Abd US appreciated no ascites
DVT ppx scd
GI ppx protonix
I spent a total of 50 minutes with the patient or on the floor. More than 50% of this time involved counseling and coordination of care.
Anticipated Discharge: 24 - 48 hours
Subjective/Interval History
-
Date of Service: June 09, 2024
Reports improvement in pain. Overall reports feeling well. Denies new acute issues at this time.
Objective Data
-
Labs:
Laboratory Results
06/09/24
07:08
WBC Pending
Hgb Pending
Hct Pending
Plt Count Pending
Sodium Pending
Potassium Pending
Chloride Pending
Carbon Dioxide Pending
BUN Pending
Creatinine Pending
Glucose Pending
Calcium Pending
Total Bilirubin Pending
AST Pending
ALT Pending
Alkaline Phosphatase Pending
Vital Signs:
Vital Signs
Temp Pulse Resp BP Pulse Ox
98.3 F 68 19 132/61 94
06/08/24 23:10 06/08/24 23:10 06/08/24 23:10 06/08/24 23:10 06/08/24 23:10
I&O
06/08/24 06/09/24 06/10/24
06:59 06:59 06:59
Intake Total 1895 / 1895 3120 / 3120
Output Total 2750 / 2750 1450 / 1450
Balance -855 / -855 1670 / 1670
[2024-06-09 08:21] LABS: Hematocrit 24.2 % (39.0-52.0); Mean Corp Hgb Conc. 33.1 g/dL (33.0-37.0); Mean Corpuscular Hgb 24.6 pg (27.0-31.0); Mean Corpuscular Volume 74.5 fL (80.0-94.0); Platelet Count 182 10^3/uL (130-400); Red Blood Cell Count 3.25 10^6/uL (4.70-6.10); Red Cell Dist. Width 23.2 % (11.5-14.5); White Blood Cell Count 9.4 10^3/uL (4.8-10.8)
--- NOTE | 2024-06-09 08:22 | W.PN.CD ---
Today's Communication / Plan
-
CHRIS in AM
Impression / Plan
-
Bacteremia with Streptococcus bovis
-discussed with ID
-CHRIS in AM
Sickle cell crisis:
-improved
Abnormal troponin:
-acute non-ischemic myocardial injury in setting of acute anemia, sickle cell crisis
-echo with EF 55-60%, normal wall motion, mild/mod TR, PASP 42
HTN:
-chronic: continue current regimen
Physical Exam
Vital Signs/Labs
Vital Signs
Temp Pulse Resp BP Pulse Ox
98.4 F 57 17 152/72 93
06/09/24 07:00 06/09/24 07:00 06/09/24 07:00 06/09/24 07:00 06/09/24 07:00
06/08/24 06/09/24 06/10/24
06:59 06:59 06:59
Actual Weight 75.024 kg
06/09/24 07:08
APTT 55.5 Sec (23.4-35.0) H 06/06/24 06:39
Magnesium 2.2 mg/dl (1.6-2.3) 06/08/24 06:08
06/04/24
15:12
Uhf-J-Csdluakyogx Pept 1420
Physical Exam
Constitutional: No acute distress and Comfortable
EENT: Moist mucous membranes
Cardiovascular: Rhythm & rate is regular, Pedal edema is absent, JVD pressure is normal and Systolic murmur absent
Respiratory: Respiratory effort normal and Lungs clear to auscul.
Neuro/Psych: AO x 3
Data Reviewed
-
Date of Service: June 09, 2024
Echo: Report Reviewed by me
Labs: Labs Reviewed by me
[2024-06-09] MEDS: LOPRESSOR 25 MG PO ×2 (08:44→21:20)
[2024-06-09] MEDS: APRESOLINE 25 MG PO ×2 (08:44→21:20)
[2024-06-09] MEDS: VITAMIN B-12 1000 MCG PO (08:45)
[2024-06-09 08:57] LABS: ALT (SGPT) 123 U/L (0-50); AST (SGOT) 150 U/L (17-59); Alkaline Phosphatase 195 U/L (38-126); Blood Urea Nitrogen 20 mg/dl (9-20); Calcium 9.1 mg/dl (8.4-10.2); Carbon Dioxide 26 mmol/L (22-30); Chloride 109 mmol/L (98-107); Estimated Creatinine Clearance 93 ml/min; Glucose 86 mg/dl (70-99); LDH 686 U/L (120-246); Magnesium 1.7 mg/dl (1.6-2.3); Potassium 4.1 mmol/L (3.5-5.1); Sodium 143 mmol/L (135-145); Total Bilirubin 3.4 mg/dl (0.2-1.3); Total Protein 6.8 g/dl (6.3-8.2); eGFR > 60.00
[2024-06-09 09:07] LABS: Reticulocyte Count 6.5 % (0.4-2.8)
[2024-06-09 09:08] LABS: Absolute Neutrophils -Man Diff 4.6 10^3/uL (1.4-6.5); Band Neutrophils 2 % (0-3); Eosinophils 6 % (0-6); Lymphocytes 29 % (20-51); Metamyelocytes 1 % (-); Monocytes 15 % (2-9); Segmented Neutrophils 47 % (42-75)
[2024-06-09 09:09] LABS: Anisocytosis 1+; Normal RBC Morphology No; Nucleated Red Blood Cells 75 (-); Platelets Checked Yes
[2024-06-09 09:10] LABS: Hypochromasia 1+; Macrocytosis 1+; Poikilocytosis 1+
[2024-06-09 09:11] LABS: Schistocytes 1+; Sickled Red Blood Cells 1+
[2024-06-09 09:12] LABS: Target Cells 1+
[2024-06-09 09:13] LABS: Total Cells Counted 100
--- NOTE | 2024-06-09 09:42 | W.PN.NEPH.PH ---
Today's Communication / Plan
-
check PVR
Assessment/Plan
-
IMP:
Sickle Cell Crisis
Anemia
SANA-cr 0.9 on admit
Hyperkalemia
Mixed gap and non gap Metabolic acidosis
GPC bacteremia
Mild troponin elevation
Intermittent Chest pain past few days
HTN
Mild Hepatic Cirrhosis
elevated LFTs
Plan:
SANA from CN resolved
follow BMP
check PVR
will sign off
-
-
Date of Service: June 09, 2024
CC / HPI / ROS
-
Chief Complaint:
SANA
History of Present Illness:
Hgb 8. stable
aguilera out
BP stable
SANA/Cr down to 0.9
LFTs improving
Review of Systems:
no CP/SOB
Labs
-
Labs:
WBC 9.4 10^3/uL (4.8-10.8) 06/09/24 07:08
RBC 3.25 10^6/uL (4.70-6.10) L 06/09/24 07:08
Hgb 8.0 g/dL (13.0-18.0) L 06/09/24 07:08
Hct 24.2 % (39.0-52.0) L 06/09/24 07:08
Plt Count 182 10^3/uL (130-400) 06/09/24 07:08
Sodium 143 mmol/L (135-145) 06/09/24 07:08
Potassium 4.1 mmol/L (3.5-5.1) 06/09/24 07:08
Chloride 109 mmol/L (98-107) H 06/09/24 07:08
Carbon Dioxide 26 mmol/L (22-30) 06/09/24 07:08
BUN 20 mg/dl (9-20) 06/09/24 07:08
Creatinine 0.9 mg/dL (0.7-1.3) 06/09/24 07:08
eGFR > 60.00 06/09/24 07:08
Glucose 86 mg/dl (70-99) 06/09/24 07:08
Calcium 9.1 mg/dl (8.4-10.2) 06/09/24 07:08
Vpx-J-Liyoripxszw Pept 1420 pg/ml 06/04/24 15:12
Albumin 3.0 g/dl (3.5-5.0) L 06/09/24 07:08
Physical Exam
-
Vital Signs:
Vital Signs
Temp Pulse Resp BP Pulse Ox
98.4 F 57 17 152/72 93
06/09/24 07:00 06/09/24 07:00 06/09/24 07:00 06/09/24 07:00 06/09/24 07:00
Cardiovascular:: Regular rate and rhythm
Respiratory:: Bilateral: CTA
Lung Excursion:: Normal
Abdomen:: Nontender and Soft
Bowel Sounds:: Normal
Extremity Edema:: None: Bilateral:
[2024-06-09 15:00] VITALS: BP 152/85
--- NOTE | 2024-06-09 15:17 | W.PN.ID1 ---
Date of Service
Date of Service: June 09, 2024
Today's Communication
CHRIS tomorrow.
Continue ceftriaxone.
Assessment / Plan
Sickle disease/crisis
Leukocytosis- resolved
Fever - resolved
Bacteremia with Streptococcus bovis
Elevated bilirubin
Transaminitis
Recommendations:
Continue ceftriaxone.
Repeat blood cultures neg to date.
CT a/p: no acute abnormality
TTE: no gross vege
CHRIS tomorrow.
Recommend outpatient colonoscopy (pt never had one).
Following acute illness, patient will need to be assessed for vaccinations appropriate for splenectomized patients.
����������������������������������������������������������
Chief Complaint
-: Clinical Sepsis and Bacteremia
Subjective / Review of Systems
Feels well.
Vital Signs / Physical Exam
Vital Signs
Vital Signs
Temp Pulse Resp BP Pulse Ox
98.4 F 57 17 152/72 93
06/09/24 07:00 06/09/24 07:00 06/09/24 07:00 06/09/24 07:00 06/09/24 07:00
Physical Exam
Constitutional: No Acute Distress
Cardiovascular: Regular Rate and S1/S2
Pulmonary: Clear
Gastrointestinal: Soft, Non Tender and Non Distended
Genito-Urinary: Negative CVA Tenderness
Extremities: Negative Edema
Neurological: AO x 3
Objective Data
Lab Data
Lab Results
06/09/24 07:08
06/09/24 07:08
APTT 55.5 Sec (23.4-35.0) H 06/06/24 06:39
Estimated Creat Clear 93 ml/min 06/09/24 07:08
Lactic Acid 1.0 mmol/L (0.7-2.0) 06/06/24 08:31
Total Bilirubin 3.4 mg/dl (0.2-1.3) H 06/09/24 07:08
AST 150 U/L (17-59) H 06/09/24 07:08
ALT 123 U/L (0-50) H 06/09/24 07:08
Alkaline Phosphatase 195 U/L (38-126) H 06/09/24 07:08
Most recent labs reviewed.
Micro Results:
06/06/24 08:40 Blood Culture - Preliminary
Blood/Venous No Growth in 72 hours- Final report to follow
06/05/24 13:12 Blood Culture - Final
Blood/Venous Streptococcus bovis
Gram Stain - Final
06/06/24 09:43 Nasal Screen MRSA (PCR) - Final
Nose MRSA not detected - performed by PCR methodology.
06/05/24 05:53 Urine Culture - Final
Urine No Significant Growth
Imaging:
06/05/2024 Renal ultrasound: No findings to suggest renal collecting system dilatation. Mild chronic medical renal disease noted.
06/04/2024 CXR (2 view): No convincing focal infiltrates noted. No pleural effusion. No pneumothorax. 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
06/04/2024 CT abdomen/pelvis with IV contrast: No significant acute abnormality in the abdomen or pelvis. Appendix is normal. Mild hepatic cirrhosis. Cholelithiasis noted. Chronic changes related to sickle cell disease are noted including densely
calcified spleen.
[2024-06-09] MEDS: STERILE WATER FOR INJECTION 20 ML IV (15:45)
[2024-06-09] MEDS: ROCEPHIN 2000 MG IV (15:46)
[2024-06-09] MEDS: ROXICODONE 5 MG PO (18:28)
[2024-06-09] MEDS: ROXICODONE 10 MG PO (21:20)
[2024-06-09] MEDS: FOLVITE 1 MG PO (22:16)
[2024-06-09] MEDS: THERAGRAN 1 TABLET PO (22:16)
[2024-06-09] MEDS: COZAAR 100 MG PO (22:16)
[2024-06-09 23:34] VITALS: BP 167/94
[2024-06-10] MEDS: ROXICODONE 10 MG PO ×2 (03:55→21:26)
[2024-06-10 06:21] LABS: Hematocrit 25.8 % (39.0-52.0); Hemoglobin 8.7 g/dL (13.0-18.0); Mean Corp Hgb Conc. 33.7 g/dL (33.0-37.0); Mean Corpuscular Hgb 25.5 pg (27.0-31.0); Mean Corpuscular Volume 75.7 fL (80.0-94.0); Platelet Count 148 10^3/uL (130-400); Red Blood Cell Count 3.41 10^6/uL (4.70-6.10); Red Cell Dist. Width 22.3 % (11.5-14.5); White Blood Cell Count 8.7 10^3/uL (4.8-10.8)
[2024-06-10 06:53] LABS: ALT (SGPT) 115 U/L (0-50); AST (SGOT) 133 U/L (17-59); Albumin 3.4 g/dl (3.5-5.0); Alkaline Phosphatase 233 U/L (38-126); Blood Urea Nitrogen 17 mg/dl (9-20); Calcium 9.2 mg/dl (8.4-10.2); Carbon Dioxide 22 mmol/L (22-30); Chloride 110 mmol/L (98-107); Estimated Creatinine Clearance 93 ml/min; Glucose 92 mg/dl (70-99); Magnesium 1.7 mg/dl (1.6-2.3); Potassium 4.2 mmol/L (3.5-5.1); Sodium 143 mmol/L (135-145); Total Bilirubin 3.2 mg/dl (0.2-1.3); Total Protein 7.5 g/dl (6.3-8.2); eGFR > 60.00
[2024-06-10 07:55] VITALS: BP 160/98
[2024-06-10] MEDS: APRESOLINE 25 MG PO (08:27)
[2024-06-10] MEDS: LOPRESSOR 25 MG PO ×2 (08:27→20:08)
--- NOTE | 2024-06-10 08:27 | W.PN.ONC2 ---
Today's Communication / Plan
-
follow CBC
follow fever curve
abx per ID
CHRIS
pain management
check APLS panel
Impression
Impression
Fever
Streptococcus bovis bacteremia
UA with pyuria, urine cx negative
Sickle cell disease, no symptoms of acute chest syndrome. Non-compliant with hematology follow up >1 year
vaso-occlusive crisis
elevated BNP
SANA -resolved
acute leukocytosis
Anemia, reported baseline hemoglobin 7-8, s/p 2 unit prbc during hospitalization, last 06/07
Prolonged PTT in April & May 2024
Plan
Plan
follow CBC
Continue folic acid. He does not take hydroxyurea for sickle cell
PTT does not appear to correct on mixing studies -follow up APLS panel
Bacteremia -ID following on IV abx, plan to CHRIS
pain management
ensure adequate hydration
supplemental O2 prn
SANA resolved
Outpatient follow-up with Dr. Mcdonald, his electrical tech at [facility] -He tells me that he plans to follow up in June 2024
Subjective/Objective
Chief Complaint
no new complaints
Subjective
afebrile, no hypoxia or hypotension
using oral oxycodone IR for pain prn
Vital Signs:
Vital Signs
Temp Pulse Resp BP Pulse Ox
97.7 F 60 14 160/98 96
06/10/24 07:55 06/10/24 07:55 06/10/24 07:55 06/10/24 07:55 06/10/24 07:55
Lab Results:
Laboratory Data
WBC 8.7 10^3/uL (4.8-10.8) 06/10/24 05:42
Hgb 8.7 g/dL (13.0-18.0) L 06/10/24 05:42
Plt Count 148 10^3/uL (130-400) 06/10/24 05:42
APTT 55.5 Sec (23.4-35.0) H 06/06/24 06:39
eGFR > 60.00 06/10/24 05:42
Physical Exam
HEENT: Moist Mucous Membranes; No Jaundice
Cardiology: S1 and S2
Pulmonary: Clear
GI: Soft
Extremities: No Edema
Neuro: Non Focal
Review of Systems
Review of Systems
ROS notable for subjective, otherwise negative
[2024-06-10] MEDS: VITAMIN B-12 1000 MCG PO (08:28)
[2024-06-10 08:33] LABS: Eosinophils 7 % (0-6); Lymphocytes 33 % (20-51); Monocytes 15 % (2-9); Segmented Neutrophils 43 % (42-75)
--- NOTE | 2024-06-10 08:33 | W.PN.HOSP.TC ---
Today's Communication/Plan
-
Continue antibiotics for bacteremia
Monitor CBC, vital signs
Assessment / Plan
Assessment / Plan
Physical Exam
General: Not in acute distress.
HEENT: Normocephalic.
NECK: Supple.
RESPIRATORY: Bibasilar crackles
CVS: S1, S2 normal. RRR.
ABDOMEN: Soft, non-tender. No distension. BS+/normal.
EXTREMITIES: No peripheral cyanosis or edema.
DIRECTOR TRADE: AAOx3
IMPRESSION:
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 Patient was referred to ED
d/t concerns low hgb noted on outpt labs. Hgb 6.8 with mild troponin elevation 0.035 and BNP 1420 noted here. Patient hypertensive but otherwise VSS on room air non-labored respirations. CXR noted no acute abn's. CT abd/pelvis w/ contrast noted
no acute abn's mild hepatic cirrhosis, cholelithiasis, chronic changes related to sickle cell disease. Received multiple doses of dilaudid in ED, reporting persistent 8/10 pain without relief. At time of evaluation, did not appear to be in acute
distress, however, and was visibly falling asleep during interview. Denies nausea vomiting, requesting diet.
PLAN:
#Sickle Cell Crisis
#Anemia
cont pain control prn dilaudid switched to Oxycodone (dilaudid remains available for severe breakthrough pain)
iron studies B12 Folate appreciated non-deficient (elevated iron levels likely d/t frequent transfusions)
responded appropriately to 1PRBC transfusion (given ED) trended down however
06/07 repeat 1PRBC transfusion Hgb 6.9 also exhibited appropriate response 8.3
H&H stable at this time, monitor
Hematology eval appreciated
IVF support
Continue folic acid (patient does not take hydroxyurea for sickle cell)
APLS panel
ensure adequate hydration
supplemental O2 prn
Outpatient follow-up with Dr. Mcdonald, his care tech at [place] -He tells me that he plans to follow up in June 2024
53M HTN Sickle Cell prisoner here for sickle cell crisis severe anemia sepsis bacteremia strep bovis contrast induced SANA improved with IVF abx pain control total 2PRBC transfusions. NPO after midnight for CHRIS. Possible discharge back to [facility]
Mon or .
#SANA likely IV contrast induced vs sickle cell vs retention (SANA resolved)
#Hyperkalemia resolved
#Anion Gap Metabolic Acidosis (no significant lactic acidosis) resolved
Improved w/ Bicarb gtt since completed
bladder renal US appreciated no acute abn's
Cruz started noted retaining 500 cc
passed trial of void 06/08
#Possible UTI
#Bacteremia with Streptococcus bovis
#Possible Sepsis Leukocytosis fever (no lactic acidosis or hypotension)
urinalysis suggestive though pt appears asymptomatic denies dysuria
Leukocytosis possibly stress reactive as oppose to infection
blood culture appreciated Strep Bovis good sensitivities
ID eval appreciated vanco discontinued in favor ceftriaxone, CHRIS recommended
Cardio eval appreciated CHRIS performed on Monday06/10/24 and it did not show any evidence of endocarditis
Continue ceftriaxone to complete a 14 day course, appreciate ID
Patient will need outpatient colonoscopy given the significant association of strep bovis bacteremia and GI malignancy.
Following acute illness, patient will need to be assessed for vaccinations appropriate for splenectomized patients.
#Mild troponin elevation
#Intermittent Chest pain past few days
#BNP elevated, bibasilar crackles, question possible heart failure ruled out
ECHO appreciated preserved EF 55-60% no significant valve abn's
troponin has been mildly elevated in the past
Initial troponin 0.035 since trended down, EKG notes no significant change from prior EKG 11/28/23, repeat EKG remains stable
Likely non-mi related troponin elevation
Cardio eval appreciated
daily weights
I/O
#HTN
cont home hydralazine (hydralazine dose increased for better blood pressure control) and metoprolol
Losartan briefly held d/t SANA, resumed with resolution of SANA
#Mild Hepatic Cirrhosis
outpt follow up with GI
Abd US appreciated no ascites
DVT ppx scd
GI ppx protonix
Anticipated Discharge: 24 - 48 hours
Subjective/Interval History
-
Date of Service: June 10, 2024
Patient was seen and examined. He denied any new complaints.
Objective Data
-
Labs:
Laboratory Results
06/10/24
05:42
WBC 8.7
Hgb 8.7 L
Hct 25.8 L
Plt Count 148
Sodium 143
Potassium 4.2
Chloride 110 H
Carbon Dioxide 22
BUN 17
Creatinine 0.9
Glucose 92
Calcium 9.2
Total Bilirubin 3.2 H
AST 133 H
ALT 115 H
Alkaline Phosphatase 233 H
Vital Signs:
Vital Signs
Temp Pulse Resp BP Pulse Ox
97.7 F 60 14 160/98 96
06/10/24 07:55 06/10/24 08:27 06/10/24 07:55 06/10/24 08:27 06/10/24 07:55
I&O
06/09/24 06/10/24 06/11/24
06:59 06:59 06:59
Intake Total 3120 / 3120 3240 / 3240
Output Total 1450 / 1450 50 / 50
Balance 1670 / 1670 3190 / 3190
[2024-06-10 08:34] LABS: Anisocytosis 1+; Atypical Lymphocytes 2 %; Hypochromasia 1+; Macrocytosis 1+; Normal RBC Morphology No; Nucleated Red Blood Cells 39 (-); Platelets Checked Yes; Polychromasia Slight
[2024-06-10 08:35] LABS: Schistocytes Slight; Sickled Red Blood Cells 2+; Target Cells 2+; Total Cells Counted 100
--- NOTE | 2024-06-10 10:00 | W.PN.CD ---
Today's Communication / Plan
-
CHRIS today
increase hydralazine for better BP control
Impression / Plan
-
Bacteremia with Streptococcus bovis
-discussed with ID
-CHRIS today
Sickle cell crisis:
-improved
Abnormal troponin:
-acute non-ischemic myocardial injury in setting of acute anemia, sickle cell crisis
-echo with EF 55-60%, normal wall motion, mild/mod TR, PASP 42
HTN:
-elevated BP: increase hydralazine for better BP control
Physical Exam
Vital Signs/Labs
Vital Signs
Temp Pulse Resp BP Pulse Ox
97.7 F 60 14 160/98 96
06/10/24 07:55 06/10/24 08:27 06/10/24 07:55 06/10/24 08:27 06/10/24 07:55
06/09/24 06/10/24 06/11/24
06:59 06:59 06:59
Actual Weight 72.484 kg
06/10/24 05:42
06/10/24 05:42
APTT 55.5 Sec (23.4-35.0) H 06/06/24 06:39
Magnesium 1.7 mg/dl (1.6-2.3) 06/10/24 05:42
06/04/24
15:12
Ccz-[id number] Pept 1420
Physical Exam
Constitutional: No acute distress and Comfortable
EENT: Moist mucous membranes
Cardiovascular: Rhythm & rate is regular, Pedal edema is absent, JVD pressure is normal and Systolic murmur absent
Respiratory: Respiratory effort normal and Lungs clear to auscul.
Neuro/Psych: AO x 3
Data Reviewed
-
Date of Service: June 10, 2024
Labs: Labs Reviewed by me
--- NOTE | 2024-06-10 10:50 | W.PN.UPDATE ---
Update Note
Progress Note Update
No evidence of endocarditis on CHRIS.
Please call us back with additional questions.
[2024-06-10 11:19] VITALS: BP 156/94
[2024-06-10 11:39] LABS: Albumin 3.01 g/dL (3.75-5.01); Alpha 1 Globulin 0.38 g/dL (0.19-0.46); Alpha 2 Globulin 0.67 g/dL (0.48-1.05); Free Kappa Light Chains,Quant 133.05 mg/L (3.30-19.40); Free Lambda Light Chains,Quant 85.55 mg/L (5.71-26.30); IgA 376 mg/dL (68-408); IgG 2752 mg/dL (768-1632); IgM 49 mg/dL (35-263); Immunofixation Electrophoresis IFE Done; Kappa/Lambda Fr Light Ratio 1.56 (0.26-1.65); Total Protein-Electrophoresis 7.2 g/dL (6.3-8.2)
--- NOTE | 2024-06-10 14:00 | W.PN.ID1 ---
Date of Service
Date of Service: June 10, 2024
Today's Communication
Continue antibiotics
Assessment / Plan
Sickle disease/crisis
- improved
Leukocytosis
- resolved
Fever
- resolved
Bacteremia with Streptococcus bovis
- CHRIS does not reveal valvular vegetation.
Elevated bilirubin
Transaminitis
Recommendations:
Repeat blood cultures neg to date.
CT a/p: no acute abnormality
TTE: no gross vege
CHRIS : No vegitation
Continue ceftriaxone (d#6) to complete a 14 day course.
Recommend outpatient colonoscopy given the significant association of strep bovis bacteremia and GI malignancy. Patient has no prior history of colonoscopy.
Following acute illness, patient will need to be assessed for vaccinations appropriate for splenectomized patients.
����������������������������������������������������������
Chief Complaint
-: Clinical Sepsis and Bacteremia
Subjective / Review of Systems
Review of Systems: No Fever and No Chills
Vital Signs / Physical Exam
Vital Signs
Vital Signs
Temp Pulse Resp BP Pulse Ox
97.7 F 58 16 156/94 97
06/10/24 11:19 06/10/24 11:19 06/10/24 11:19 06/10/24 11:19 06/10/24 11:19
Physical Exam
Constitutional: No Acute Distress, Comfortable and Non-toxic
Eyes: No Conjunctival Hemorrhage and Sclera Anicteric
Cardiovascular: Regular Rate and S1/S2; Negative S3/S4 or Murmur
Pulmonary: Clear and Non Labored
Gastrointestinal: Soft, Non Tender and Non Distended
Genito-Urinary: Negative CVA Tenderness
Extremities: Negative Edema
Neurological: AO x 3
Objective Data
Lab Data
Lab Results
06/10/24 05:42
06/10/24 05:42
APTT 55.5 Sec (23.4-35.0) H 06/06/24 06:39
Estimated Creat Clear 93 ml/min 06/10/24 05:42
Lactic Acid 1.0 mmol/L (0.7-2.0) 06/06/24 08:31
Total Bilirubin 3.2 mg/dl (0.2-1.3) H 06/10/24 05:42
AST 133 U/L (17-59) H 06/10/24 05:42
ALT 115 U/L (0-50) H 06/10/24 05:42
Alkaline Phosphatase 233 U/L (38-126) H 06/10/24 05:42
Most recent labs reviewed.
Micro Results:
06/06/24 08:40 Blood Culture - Preliminary
Blood/Venous No Growth in 4 days- Final report to follow
06/05/24 13:12 Blood Culture - Final
Blood/Venous Streptococcus bovis
Gram Stain - Final
06/06/24 09:43 Nasal Screen MRSA (PCR) - Final
Nose MRSA not detected - performed by PCR methodology.
06/05/24 05:53 Urine Culture - Final
Urine No Significant Growth
Imaging:
06/10/2024 ECHO (CHRIS): No evidence of valvular vegetation noted. Please see full dictation for additional detail.
06/05/2024 Renal ultrasound: No findings to suggest renal collecting system dilatation. Mild chronic medical renal disease noted.
06/04/2024 CXR (2 view): No convincing focal infiltrates noted. No pleural effusion. No pneumothorax. 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
06/04/2024 CT abdomen/pelvis with IV contrast: No significant acute abnormality in the abdomen or pelvis. Appendix is normal. Mild hepatic cirrhosis. Cholelithiasis noted. Chronic changes related to sickle cell disease are noted including densely
calcified spleen.
[2024-06-10] MEDS: ROCEPHIN 2000 MG IV (14:40)
[2024-06-10] MEDS: STERILE WATER FOR INJECTION 20 ML IV (14:41)
[2024-06-10 15:42] VITALS: BP 168/91
--- NOTE | 2024-06-10 16:36 | CM ---
Reviewed chart, patient still requiring acute care. [facility] will return to [facility] when stable for transfer back.
Plan: Case management will continue to follow and assist with discharge planning. [facility]sp when medically cleared for discharge.
[2024-06-10] MEDS: APRESOLINE 50 MG PO ×2 (16:38→21:30)
[2024-06-10 21:21] VITALS: BP 155/63
[2024-06-10] MEDS: THERAGRAN 1 TABLET PO (21:31)
[2024-06-10] MEDS: COZAAR 100 MG PO (21:31)
[2024-06-10] MEDS: FOLVITE 1 MG PO (21:31)
[2024-06-10 23:30] VITALS: BP 164/88
[2024-06-11] VITALS (9 sets, daily range): BP systolic 149–179; BP diastolic 88–102; BMI 24.4
[2024-06-11] MEDS: ROXICODONE 5 MG PO ×2 (01:06→18:05)
[2024-06-11 06:21] LABS: ALT (SGPT) 102 U/L (0-50); AST (SGOT) 117 U/L (17-59); Albumin 3.6 g/dl (3.5-5.0); Alkaline Phosphatase 245 U/L (38-126); Blood Urea Nitrogen 16 mg/dl (9-20); Calcium 9.2 mg/dl (8.4-10.2); Carbon Dioxide 19 mmol/L (22-30); Chloride 112 mmol/L (98-107); Estimated Creatinine Clearance 105 ml/min; Glucose 96 mg/dl (70-99); Magnesium 1.8 mg/dl (1.6-2.3); Potassium 4.3 mmol/L (3.5-5.1); Sodium 144 mmol/L (135-145); Total Bilirubin 3.4 mg/dl (0.2-1.3); Total Protein 7.8 g/dl (6.3-8.2); eGFR > 60.00
[2024-06-11 06:23] LABS: Hematocrit 25.9 % (39.0-52.0); Hemoglobin 8.6 g/dL (13.0-18.0); Mean Corp Hgb Conc. 33.2 g/dL (33.0-37.0); Mean Corpuscular Hgb 24.7 pg (27.0-31.0); Mean Corpuscular Volume 74.4 fL (80.0-94.0); Platelet Count 144 10^3/uL (130-400); Red Blood Cell Count 3.48 10^6/uL (4.70-6.10); Red Cell Dist. Width 21.2 % (11.5-14.5); White Blood Cell Count 9.3 10^3/uL (4.8-10.8)
[2024-06-11 08:26] LABS: Band Neutrophils 0 % (0-3); Eosinophils 3 % (0-6); Lymphocytes 32 % (20-51); Monocytes 19 % (2-9); Segmented Neutrophils 44 % (42-75)
[2024-06-11 08:27] LABS: Platelets Checked YES
[2024-06-11 08:28] LABS: Normal RBC Morphology No; Nucleated Red Blood Cells 28 (-)
[2024-06-11 08:30] LABS: Polychromasia Slight
[2024-06-11 08:31] LABS: Schistocytes FEW
[2024-06-11 08:33] LABS: Total Cells Counted 100
[2024-06-11] MEDS: VITAMIN B-12 1000 MCG PO (08:40)
[2024-06-11] MEDS: APRESOLINE 50 MG PO ×3 (08:40→23:01)
[2024-06-11] MEDS: LOPRESSOR 25 MG PO ×2 (08:40→21:53)
--- NOTE | 2024-06-11 12:47 | W.PN.ID1 ---
Date of Service
Date of Service: June 11, 2024
Today's Communication
Continue antibiotics.
Assessment / Plan
Sickle disease/crisis
- improved
Leukocytosis
- resolved
Fever
- resolved
Bacteremia with Streptococcus bovis
- CHRIS does not reveal valvular vegetation.
Elevated bilirubin
Transaminitis
Recommendations:
Repeat blood cultures neg to date.
CT a/p: no acute abnormality
TTE: no gross vege
CHRIS : No vegitation
Continue ceftriaxone (d#7) to complete a 14 day course.
Recommend outpatient colonoscopy given the significant association of strep bovis bacteremia and GI malignancy. Patient has no prior history of colonoscopy.
Following acute illness, patient will need to be assessed for vaccinations appropriate for splenectomized patients.
����������������������������������������������������������
Chief Complaint
-: Clinical Sepsis and Bacteremia
Subjective / Review of Systems
Review of Systems: No Fever and No Chills
Vital Signs / Physical Exam
Vital Signs
Vital Signs
Temp Pulse Resp BP Pulse Ox
97.6 F 64 20 174/97 97
06/11/24 11:00 06/11/24 11:00 06/11/24 11:00 06/11/24 11:00 06/11/24 11:00
Physical Exam
Constitutional: No Acute Distress, Comfortable and Non-toxic
Eyes: No Conjunctival Hemorrhage and Sclera Anicteric
Cardiovascular: Regular Rate and S1/S2; Negative S3/S4 or Murmur
Pulmonary: Clear and Non Labored
Gastrointestinal: Soft, Non Tender and Non Distended
Genito-Urinary: Negative CVA Tenderness
Extremities: Negative Edema
Neurological: AO x 3
Psychological: Calm
Objective Data
Lab Data
Lab Results
06/11/24 05:53
06/11/24 05:53
APTT 55.5 Sec (23.4-35.0) H 06/06/24 06:39
Estimated Creat Clear 105 ml/min 06/11/24 05:53
Lactic Acid 1.0 mmol/L (0.7-2.0) 06/06/24 08:31
Total Bilirubin 3.4 mg/dl (0.2-1.3) H 06/11/24 05:53
AST 117 U/L (17-59) H 06/11/24 05:53
ALT 102 U/L (0-50) H 06/11/24 05:53
Alkaline Phosphatase 245 U/L (38-126) H 06/11/24 05:53
Most recent labs reviewed.
Micro Results:
06/06/24 08:40 Blood Culture - Final
Blood/Venous No Growth - Final Report
06/05/24 13:12 Blood Culture - Final
Blood/Venous Streptococcus bovis
Gram Stain - Final
06/06/24 09:43 Nasal Screen MRSA (PCR) - Final
Nose MRSA not detected - performed by PCR methodology.
06/05/24 05:53 Urine Culture - Final
Urine No Significant Growth
Imaging:
06/10/2024 ECHO (CHRIS): No evidence of valvular vegetation noted. Please see full dictation for additional detail.
06/05/2024 Renal ultrasound: No findings to suggest renal collecting system dilatation. Mild chronic medical renal disease noted.
06/04/2024 CXR (2 view): No convincing focal infiltrates noted. No pleural effusion. No pneumothorax. 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
06/04/2024 CT abdomen/pelvis with IV contrast: No significant acute abnormality in the abdomen or pelvis. Appendix is normal. Mild hepatic cirrhosis. Cholelithiasis noted. Chronic changes related to sickle cell disease are noted including densely
calcified spleen.
Echocardiogram: Report Reviewed
Care Review
Plan reviewed with: Physician (Hospitalist)
--- NOTE | 2024-06-11 12:59 | PTCARENOTE ---
patient requesting to shower, tolerating diet, independent in room, vss, will continue to monitor.
--- NOTE | 2024-06-11 13:20 | W.PN.HOSP.TC ---
Today's Communication/Plan
-
Per case management, patient's usp needs 24 hours to get IV Rocephin ready, and IV Rocephin should be ready by tomorrow
Patient will need to have a midline done before discharge
Case management will have to call infusion company as well to confirm that they can go to a usp to teach and support IV
Assessment / Plan
Assessment / Plan
Physical Exam
General: Not in acute distress.
HEENT: Normocephalic.
NECK: Supple.
RESPIRATORY: Bibasilar crackles
CVS: S1, S2 normal. RRR.
ABDOMEN: Soft, non-tender. No distension. BS+/normal.
EXTREMITIES: No peripheral cyanosis or edema.
RISK COMPLIANCE MANAGER: AAOx3
IMPRESSION:
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 Patient was referred to ED
d/t concerns low hgb noted on outpt labs. Hgb 6.8 with mild troponin elevation 0.035 and BNP 1420 noted here. Patient hypertensive but otherwise VSS on room air non-labored respirations. CXR noted no acute abn's. CT abd/pelvis w/ contrast noted
no acute abn's mild hepatic cirrhosis, cholelithiasis, chronic changes related to sickle cell disease. Received multiple doses of dilaudid in ED, reporting persistent 8/10 pain without relief. At time of evaluation, did not appear to be in acute
distress, however, and was visibly falling asleep during interview. Denies nausea vomiting, requesting diet.
PLAN:
#Sickle Cell Crisis
#Anemia
Continue lower dose prn Oxycodone (dilaudid remains available for severe breakthrough pain)
iron studies B12 Folate appreciated non-deficient (elevated iron levels likely d/t frequent transfusions)
responded appropriately to 1PRBC transfusion (given ED) trended down however
06/07 repeat 1PRBC transfusion Hgb 6.9 also exhibited appropriate response 8.3
H&H stable at this time, monitor
Hematology eval appreciated
IVF support
Continue folic acid (patient does not take hydroxyurea for sickle cell)
APLS panel
ensure adequate hydration
supplemental O2 prn -- currently on room air
Outpatient follow-up with Dr. Mcdonald, his cleaning technician at [place] -He tells me that he plans to follow up in June 2024
#SANA likely IV contrast induced vs sickle cell vs retention (SANA resolved)
#Hyperkalemia resolved
#Anion Gap Metabolic Acidosis (no significant lactic acidosis)
Improved w/ Bicarb gtt since completed
bladder renal US appreciated no acute abn's
Cruz started noted retaining 500 cc
passed trial of void 06/08
#Possible UTI
#Bacteremia with Streptococcus bovis
#Possible Sepsis Leukocytosis fever (no lactic acidosis or hypotension)
urinalysis suggestive though pt appears asymptomatic denies dysuria
Leukocytosis possibly stress reactive as oppose to infection
blood culture appreciated Strep Bovis good sensitivities
ID eval appreciated vanco discontinued in favor ceftriaxone, CHRIS recommended
Cardio eval appreciated CHRIS performed on Monday06/10/24 and it did not show any evidence of endocarditis
Continue ceftriaxone to complete a 14 day course (Ceftriaxone 2,000 mg Intravenous Q24H through 06/18/24), appreciate ID
Patient will need outpatient colonoscopy given the significant association of strep bovis bacteremia and GI malignancy.
Following acute illness, patient will need to be assessed for vaccinations appropriate for splenectomized patients.
#Mild troponin elevation
#Intermittent Chest pain past few days
#BNP elevated, bibasilar crackles, question possible heart failure ruled out
ECHO appreciated preserved EF 55-60% no significant valve abn's
troponin has been mildly elevated in the past
Initial troponin 0.035 since trended down, EKG notes no significant change from prior EKG 11/28/23, repeat EKG remains stable
Likely non-mi related troponin elevation
Cardio eval appreciated
daily weights
I/O
#HTN
cont home hydralazine (hydralazine dose increased for better blood pressure control) and metoprolol
Losartan briefly held d/t SANA, resumed with resolution of SANA
#Mild Hepatic Cirrhosis
outpt follow up with GI
Abd US appreciated no ascites
DVT ppx scd
GI ppx protonix
Anticipated Discharge: Within 24 hours
Subjective/Interval History
-
Date of Service: June 11, 2024
Patient was seen and examined. He denied any pain or any symptoms or complaints.
Objective Data
-
Labs:
Laboratory Results
06/11/24
05:53
WBC 9.3
Hgb 8.6 L
Hct 25.9 L
Plt Count 144
Sodium 144
Potassium 4.3
Chloride 112 H
Carbon Dioxide 19 L
BUN 16
Creatinine 0.8
Glucose 96
Calcium 9.2
Total Bilirubin 3.4 H
AST 117 H
ALT 102 H
Alkaline Phosphatase 245 H
Vital Signs:
Vital Signs
Temp Pulse Resp BP Pulse Ox
97.6 F 64 20 174/97 97
06/11/24 11:00 06/11/24 11:00 06/11/24 11:00 06/11/24 11:00 06/11/24 11:00
I&O
06/10/24 06/11/24 06/12/24
06:59 06:59 06:59
Intake Total 3240 / 3240 750 / 750
Output Total 50 / 50 350 / 350
Balance 3190 / 3190 400 / 400
--- NOTE | 2024-06-11 13:41 | CM ---
Received notification from attending and ID that patient will need to be discharged on IV ABX. Ceftriaxone 2,000 mg Intravenous Q24 through 06/18.
Placed a call to [facility] and spoke with an RN named, Kaylyn from the [facility]. She stated that as long as patient has a midline, she can order the medication and have it ready by tomorrow. She was provided with the above information for the
ABX. She confirmed that she understood the directions and, ABX named spelled out for her as well as dosage and frequency.
She stated that she would be able to get the medication by tomorrow.
Attending and ID updated.
Plan: Case management will continue to follow and assist with discharge planning. Back to care home with IV ABX.
[2024-06-11] MEDS: STERILE WATER FOR INJECTION 20 ML IV (15:00)
[2024-06-11] MEDS: ROCEPHIN 2000 MG IV (15:00)
[2024-06-11] MEDS: SODIUM BICARBONATE 650 MG PO ×2 (16:27→23:00)
[2024-06-11] MEDS: FOLVITE 1 MG PO (23:00)
[2024-06-11] MEDS: COZAAR 100 MG PO (23:01)
[2024-06-11] MEDS: THERAGRAN 1 TABLET PO (23:01)
[2024-06-12] MEDS: COMPAZINE 5 MG IV (01:31)
[2024-06-12 03:20] VITALS: BP 181/91
[2024-06-12] MEDS: APRESOLINE 10 MG IV (03:59)
[2024-06-12] MEDS: FLUSH (NSS) 2 FLUSH IV (03:59)
[2024-06-12 06:00] VITALS: BMI 22.9
[2024-06-12 06:29] LABS: ALT (SGPT) 81 U/L (0-50); AST (SGOT) 88 U/L (17-59); Albumin 3.4 g/dl (3.5-5.0); Alkaline Phosphatase 249 U/L (38-126); Blood Urea Nitrogen 14 mg/dl (9-20); Calcium 9.2 mg/dl (8.4-10.2); Carbon Dioxide 25 mmol/L (22-30); Chloride 110 mmol/L (98-107); Estimated Creatinine Clearance 93 ml/min; Glucose 89 mg/dl (70-99); Magnesium 1.7 mg/dl (1.6-2.3); Potassium 4.2 mmol/L (3.5-5.1); Sodium 143 mmol/L (135-145); Total Bilirubin 3.1 mg/dl (0.2-1.3); Total Protein 7.5 g/dl (6.3-8.2); eGFR > 60.00
[2024-06-12 07:48] VITALS: BP 150/90
[2024-06-12] MEDS: VITAMIN B-12 1000 MCG PO (08:02)
[2024-06-12] MEDS: LOPRESSOR 25 MG PO (08:02)
[2024-06-12] MEDS: SODIUM BICARBONATE 650 MG PO (08:02)
[2024-06-12] MEDS: APRESOLINE 50 MG PO (08:02)
--- NOTE | 2024-06-12 10:14 | CM ---
Addendum entered by Ivy Paige 06/12/24 10:53:
Plan: Discharge today to [facility]
CM received a call from [facility] that the ordered antibiotic was delivered; they can accept the patient today
Report: Meghana @ [facility] #
Fax #
Original Note:
CM spoke with [facility]; they reported that the antibiotic was sent to their pharmacy and they will let CM know when it has been delivered to them
Clinicals and Script for Antibiotic faxed to #
Plan: patient stable for discharge; will return to [facility] when ordered medication for IV infusions is available at the [facility]
[2024-06-12 11:07] VITALS: BP 150/85
--- NOTE | 2024-06-12 13:00 | W.PN.HOSP.TC ---
Today's Communication/Plan
-
Discharge today
Assessment / Plan
Assessment / Plan
Physical Exam
General: Not in acute distress.
HEENT: Normocephalic.
NECK: Supple.
RESPIRATORY: Bibasilar crackles
CVS: S1, S2 normal. RRR.
ABDOMEN: Soft, non-tender. No distension. BS+/normal.
EXTREMITIES: No peripheral cyanosis or edema.
CUSTOMER BUSINESS MANAGER: AAOx3
IMPRESSION:
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 Patient was referred to ED
d/t concerns low hgb noted on outpt labs. Hgb 6.8 with mild troponin elevation 0.035 and BNP 1420 noted here. Patient hypertensive but otherwise VSS on room air non-labored respirations. CXR noted no acute abn's. CT abd/pelvis w/ contrast noted
no acute abn's mild hepatic cirrhosis, cholelithiasis, chronic changes related to sickle cell disease. Received multiple doses of dilaudid in ED, reporting persistent 8/10 pain without relief. At time of evaluation, did not appear to be in acute
distress, however, and was visibly falling asleep during interview. Denies nausea vomiting, requesting diet.
PLAN:
#Sickle Cell Crisis
#Anemia
Continue lower dose prn Oxycodone (dilaudid remains available for severe breakthrough pain)
iron studies B12 Folate appreciated non-deficient (elevated iron levels likely d/t frequent transfusions)
responded appropriately to 1PRBC transfusion (given ED) trended down however
06/07 repeat 1PRBC transfusion Hgb 6.9 also exhibited appropriate response 8.3
H&H stable at this time, monitor
Hematology eval appreciated
IVF support
Continue folic acid (patient does not take hydroxyurea for sickle cell)
APLS panel
ensure adequate hydration
supplemental O2 prn -- currently on room air
Outpatient follow-up with Dr. 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
#SANA likely IV contrast induced vs sickle cell vs retention (SANA resolved)
#Hyperkalemia resolved
#Anion Gap Metabolic Acidosis (no significant lactic acidosis)
Improved w/ Bicarb gtt since completed
bladder renal US appreciated no acute abn's
Cruz started noted retaining 500 cc
passed trial of void 06/08
#Possible Urinary Tract Infection
#Bacteremia with Streptococcus bovis
#Possible Sepsis Leukocytosis fever (no lactic acidosis or hypotension)
urinalysis suggestive though pt appears asymptomatic denies dysuria
Leukocytosis possibly stress reactive as oppose to infection
blood culture appreciated Strep Bovis good sensitivities
ID eval appreciated vanco discontinued in favor ceftriaxone, CHRIS recommended
Cardio eval appreciated CHRIS performed on Monday06/10/24 and it did not show any evidence of endocarditis
Continue ceftriaxone to complete a 14 day course (Ceftriaxone 2,000 mg Intravenous Q24H through 06/18/24), appreciate ID
Patient will need outpatient colonoscopy given the significant association of strep bovis bacteremia and GI malignancy.
Following acute illness, patient will need to be assessed for vaccinations appropriate for splenectomized patients.
#Mild troponin elevation
#Intermittent Chest pain past few days
#BNP elevated, bibasilar crackles, question possible heart failure ruled out
ECHO appreciated preserved EF 55-60% no significant valve abn's
troponin has been mildly elevated in the past
Initial troponin 0.035 since trended down, EKG notes no significant change from prior EKG 11/28/23, repeat EKG remains stable
Likely non-mi related troponin elevation
Cardio eval appreciated
daily weights
I/O
#Hypertension
cont home hydralazine (hydralazine dose increased for better blood pressure control) and metoprolol
Losartan briefly held d/t SANA, resumed with resolution of SANA
#Mild Hepatic Cirrhosis
#Elevated AST, ALT and ALP
outpt follow up with GI
Abd US appreciated no ascites
DVT ppx scd
GI ppx protonix
More than 30 minutes spent in discharge including
Final examination of the patient
Summarizing hospital stay
Instructions for continuing care to all relevant caregivers
Preparation of discharge records, prescriptions, and referral forms
Total time spent (in minutes): 43
Anticipated Discharge: Today
Subjective/Interval History
-
Date of Service: June 12, 2024
Patient was seen and examined. He denied any new symptoms or complaints.
Objective Data
-
Labs:
Laboratory Results
06/12/24
05:42
Sodium 143
Potassium 4.2
Chloride 110 H
Carbon Dioxide 25
BUN 14
Creatinine 0.9
Glucose 89
Calcium 9.2
Total Bilirubin 3.1 H
AST 88 H
ALT 81 H
Alkaline Phosphatase 249 H
Vital Signs:
Vital Signs
Temp Pulse Resp BP Pulse Ox
98.2 F 68 16 150/85 96
06/12/24 11:07 06/12/24 11:07 06/12/24 11:07 06/12/24 11:07 06/12/24 11:07
I&O
06/11/24 06/12/24 06/13/24
06:59 06:59 06:59
Intake Total 750 / 750 2220 / 2220
Output Total 350 / 350 950 / 950
Balance 400 / 400 1270 / 1270
[2024-06-12] MEDS: STERILE WATER FOR INJECTION 20 ML IV (14:01)
[2024-06-12] MEDS: ROCEPHIN 2000 MG IV (14:01)
--- NOTE | 2024-06-12 14:41 | W.PN.ID1 ---
Date of Service
Date of Service: June 12, 2024
Today's Communication
Continue abx.
Assessment / Plan
Sickle disease/crisis
- improved
Leukocytosis
- resolved
Fever
- resolved
Bacteremia with Streptococcus bovis
- CHRIS does not reveal valvular vegetation.
Elevated bilirubin
Transaminitis
Recommendations:
Repeat blood cultures neg to date.
CT a/p: no acute abnormality
TTE: no gross vege
CHRIS : No vegitation
Continue ceftriaxone (d#8) to complete a 14 day course.
Script given to Case Management.
Recommend outpatient colonoscopy given the significant association of strep bovis bacteremia and GI malignancy. Patient has no prior history of colonoscopy. Referal given to GI for outpatient follow-up
Following acute illness, patient will need to be assessed for vaccinations appropriate for splenectomized patients. Will follow-up with patient after D/C.
����������������������������������������������������������
Chief Complaint
-: Clinical Sepsis and Bacteremia
Subjective / Review of Systems
Review of Systems: No Chills and No Abdominal Pain
Vital Signs / Physical Exam
Vital Signs
Vital Signs
Temp Pulse Resp BP Pulse Ox
98.2 F 68 16 150/85 96
06/12/24 11:07 06/12/24 11:07 06/12/24 11:07 06/12/24 11:07 06/12/24 11:07
Physical Exam
Constitutional: No Acute Distress, Comfortable and Non-toxic
Eyes: No Conjunctival Hemorrhage and Sclera Anicteric
Cardiovascular: Regular Rate and S1/S2; Negative S3/S4 or Murmur
Pulmonary: Clear and Non Labored
Gastrointestinal: Soft, Non Tender and Non Distended
Genito-Urinary: Negative CVA Tenderness
Extremities: Negative Edema
Neurological: AO x 3
Psychological: Calm
Objective Data
Lab Data
Lab Results
06/11/24 05:53
06/12/24 05:42
APTT 55.5 Sec (23.4-35.0) H 06/06/24 06:39
Estimated Creat Clear 93 ml/min 06/12/24 05:42
Lactic Acid 1.0 mmol/L (0.7-2.0) 06/06/24 08:31
Total Bilirubin 3.1 mg/dl (0.2-1.3) H 06/12/24 05:42
AST 88 U/L (17-59) H 06/12/24 05:42
ALT 81 U/L (0-50) H 06/12/24 05:42
Alkaline Phosphatase 249 U/L (38-126) H 06/12/24 05:42
Most recent labs reviewed.
Micro Results:
06/06/24 08:40 Blood Culture - Final
Blood/Venous No Growth - Final Report
06/05/24 13:12 Blood Culture - Final
Blood/Venous Streptococcus bovis
Gram Stain - Final
06/06/24 09:43 Nasal Screen MRSA (PCR) - Final
Nose MRSA not detected - performed by PCR methodology.
06/05/24 05:53 Urine Culture - Final
Urine No Significant Growth
Imaging:
06/10/2024 ECHO (CHRIS): No evidence of valvular vegetation noted. Please see full dictation for additional detail.
06/05/2024 Renal ultrasound: No findings to suggest renal collecting system dilatation. Mild chronic medical renal disease noted.
06/04/2024 CXR (2 view): No convincing focal infiltrates noted. No pleural effusion. No pneumothorax. 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
06/04/2024 CT abdomen/pelvis with IV contrast: No significant acute abnormality in the abdomen or pelvis. Appendix is normal. Mild hepatic cirrhosis. Cholelithiasis noted. Chronic changes related to sickle cell disease are noted including densely
calcified spleen.
Care Review
Plan reviewed with: Physician (Hospitalist)
[2024-06-12 15:14] VITALS: BP 175/89
[2024-06-13 07:47] LABS: Cardiolipin IgA Antibody <10 APL (<=11); Cardiolipin IgM Antibody <10 MPL (<=12); Cardiolipin Igg Antibody 19 GPL (<=14)
[2024-06-13 16:36] LABS: Beta-2-Glycoprotein I Ab. IgG 10 SGU (<=20); Beta-2-Glycoprotein I Ab. IgM <10 SMU (<=20)
== END 2024-06-12 15:30 | DRG 811 ==
LOC: 3 WEST ACU 17:50
PROVIDERS: Nurse Practitioner Acute Care; Physician Assistant; ADMITTING PHYSICIAN Internal Medicine; ATTENDING PHYSICIAN Hospitalist; CONSULT PHYSICIAN Internal Medicine; CONSULT PHYSICIAN Internal Medicine Hematology & Oncology; CONSULT PHYSICIAN Internal Medicine Infectious Disease; EMERGENCY PHYSICIAN Student in an Organized Health Care Education/Training Program; OTHER PHYSICIAN Internal Medicine
PROC: 30233N1 Transfusion of Nonautologous Red Blood Cells into Peripheral Vein, Percutaneous Approach (ICD-10-PCS; 2024-06-04)
PROC: B24BZZ4 Ultrasonography of Heart with Aorta, Transesophageal (ICD-10-PCS; 2024-06-10)
DX: D57.00 Hb-SS disease with crisis, unspecified (principal); A40.8 Other streptococcal sepsis; N17.9 Acute kidney failure, unspecified; I5A Non-ischemic myocardial injury (non-traumatic); E87.20 Acidosis, unspecified; N39.0 Urinary tract infection, site not specified; D72.829 Elevated white blood cell count, unspecified; I10 Essential (primary) hypertension; K74.60 Unspecified cirrhosis of liver; E87.5 Hyperkalemia; K80.20 Calculus of gallbladder without cholecystitis without obstruction; N14.11 Contrast-induced nephropathy; R33.9 Retention of urine, unspecified; N28.1 Cyst of kidney, acquired; I07.1 Rheumatic tricuspid insufficiency; Z87.891 Personal history of nicotine dependence; Z79.899 Other long term (current) drug therapy; Z91.199 Patient's noncompliance with other medical treatment and regimen due to unspecified reason
CPT/HCPCS: 71046; 74177; 76705; 76770; 80048; 80053; 80202; 80306; 80307; 81003; 81015; 82248; 82550; 82570; 82607; 82746; 82784; 83010; 83521; 83540; 83550; 83605; 83615; 83690; 83735; 83880; 84155; 84165; 84300; 84484; 85014; 85018; 85025; 85045; 85610; 85613; 85730; 85732; 86063; 86146; 86147; 86160; 86334; 86803; 86850; 86900; 86901; 86920; 86922; 87040; 87077; 87086; 87186; 87205; 87641; 93005; 93306; 93312; 93320; 93325; 96374; 96375; 96376; 99285; 99406; P9016; Q9967